=== PATIENT | female | born 1955 ===

== ENCOUNTER 2017-03-01 23:27 | Inpatient (IN) | payer BC ==
[~2017-03-01] VITALS: Ht 157.5 cm; Wt 77.9 kg
[~2017-03-01 23:27] MED LIST: AMIODARONE 150 MG INJ ONE; AMIODARONE 150MG/D5W BOLUS 100 ML ONE
--- NOTE | 2017-03-01 23:38 | ERD ---
ER Documentation Chief Complaint Chief Complaint [email or web address],JOHN KEANE The patient is a 61-year-old female, presenting to the ER due to cardiac arrest. I interviewed her son who was in the ER. She was not has not felt well for the last couple days. He said was about to take him to the ER for evaluation, he went to tile picker his car and when he came back the patient was on the floor. He immediately called 911, EMS came to her resident about 5 minutes after. He was in asystole when EMS arrived, she was treated with epinephrine 1 mg IV 3. The EMS did work on her for approximately 15 minutes. It took them about 10 minutes to transfer the patient to the ER for chest pain and vomiting. When she came to the ER she was in a systole, she was immediately transported to bed #2, intubated immediately with any difficulty. She was treated with epinephrine 1 mg IV 2 approximately 3 minutes apart, she then went to ventricular fibrillation, she was then fibrillated with 200J and had ROSC at 2322 hrs. According to the son, she has hypertension taking metoprolol. Past medical history: Hypertension, CAD ROS All systems reviewed and are negative except as per history of present illness. Medications Home Meds Reported Medications Enalapril Maleate* (Vasotec*) 20 Mg Tablet, 20 MG PO DAILY, TAB 03/02/17 Enalapril Maleate* (Vasotec*) 5 Mg Tablet, 5 MG PO BID, TAB 03/02/17 Metoprolol Tartrate* (Lopressor*) 25 Mg Tab, 25 MG PO BID, #60 TAB 03/02/17 Allergies Allergies: Coded Allergies: No Known Allergy (Unverified , 03/02/17) Physical Exam Vitals Vital Signs Date Time Temp Pulse Resp B/P Pulse Ox O2 Delivery O2 Flow Rate FiO2 03/02/17 03:18 67 20 100 100 03/02/17 01:55 72 20 99 100 03/01/17 23:40 Bag Valve Mask 03/01/17 23:35 0 0 0/0 03/01/17 23:30 95.7 123 17 266/150 57 Ambu Bag 03/01/17 23:30 72 20 100 100 Physical Exam Const: Severe acute distress. Head: Atraumatic. Eyes: Normal Conjunctiva.Pupils fixed and dilated ENT: Normal External Ears, Nose and Mouth. Neck: Full range of motion. No meningismus. Resp: Clear to auscultation Anteriorly and laterally with Ambu bag Cardio: asystole Abd: Soft, non distended, normal bowel sounds, non tender. Skin: No petechiae or rashes. Back: No midline or flank tenderness. Ext: No cyanosis, or edema. Neur: Unable to perform due to her condition Psych: Unable to perform due to her condition Result Diagram: 03/01/17 2340 03/01/17 2340 Results 24 hrs Laboratory Tests Test 03/01/17 23:40 03/02/17 02:40 03/02/17 03:00 White Blood Count 11.410^3/ul Red Blood Count 4.3710^6/ul Hemoglobin 12.6g/dl Hematocrit 40.8% Mean Corpuscular Volume 93.4fl Mean Corpuscular Hemoglobin 28.8pg Mean Corpuscular Hemoglobin Concent 30.9g/dl Red Cell Distribution Width 13.2% Platelet Count 52501^3/UL Mean Platelet Volume 10.6fl Neutrophils % 18.8% Lymphocytes % 68.2% Monocytes % 4.7% Eosinophils % 1.7% Basophils % 0.6% Nucleated Red Blood Cells % 0.2/100WBC Neutrophils # 2.110^3/ul Lymphocytes # 7.810^3/ul Monocytes # 0.510^3/ul Eosinophils # 0.210^3/ul Basophils # 0.110^3/ul Nucleated Red Blood Cells # 0.010^3/ul Prothrombin Time 14.7Sec Prothrombin Time Ratio 1.1 INR International Normalized Ratio 1.15 Activated Partial Thromboplast Time 53.8Sec Sodium Level 147mmol/L Potassium Level 4.8mmol/L Chloride Level 117mmol/L Carbon Dioxide Level 19mmol/L Anion Gap 16 Blood Urea Nitrogen 20mg/dl Creatinine 1.27mg/dl Glucose Level 206mg/dl Lactic Acid Level 12.5mmol/L 3.0mmol/L Calcium Level 7.7mg/dl Total Bilirubin 0.2mg/dl Direct Bilirubin 0.00mg/dl Indirect Bilirubin 0.2mg/dl Aspartate Amino Transf (AST/SGOT) 251IU/L Alanine Aminotransferase (ALT/SGPT) 175IU/L Alkaline Phosphatase 114IU/L Troponin I Pending Total Protein 6.1g/dl Albumin 3.1g/dl Globulin 3.00g/dl Albumin/Globulin Ratio 1.03 Salicylates Level < 1.0mg/dl Acetaminophen Level < 10.0ug/ml Ethyl Alcohol Level < 10.0mg/dl Urine Color YELLOW Urine Clarity SLIGHTLY CLOUDY Urine pH 7.0 Urine Specific [place] 1.006 Urine Ketones NEGATIVEmg/dL Urine Nitrite NEGATIVEmg/dL Urine Bilirubin NEGATIVEmg/dL Urine Urobilinogen NEGATIVEmg/dL Urine Leukocyte Esterase NEGATIVELeu/ul Urine Microscopic RBC 9/HPF Urine Microscopic WBC 2/HPF Urine Hemoglobin 2+mg/dL Urine Glucose 3+mg/dL Urine Total Protein 2+mg/dl Current Medications Medications (Trade) Dose Ordered Sig/Antonio Route PRN Reason Start Time Stop Time Status Last Admin Dose Admin Amiodarone HCl 100 ml @ 600 mls/hr ONCE ONCE IV 03/02/17 00:00 03/02/17 00:09 DC 03/02/17 00:11 Amiodarone HCl/ Dextrose (Cordarone Iv/ D5W) 500 ml @ 0 mls/hr Q0M IV 03/02/17 00:00 03/02/17 23:59 03/02/17 00:09 Mannitol 25 gm 25 gm ONCE ONCE IV* 03/02/17 01:30 03/02/17 01:31 Cancel Sodium Chloride 2,790 ml @ 2,790 mls/hr BOLUS X1 ONCE IV 03/02/17 02:00 03/02/17 02:59 DC 03/02/17 02:27 Vancomycin HCl 250 ml @ 125 mls/hr ONCE IVPB 03/02/17 02:00 03/02/17 03:59 DC 03/02/17 02:41 Piperacillin Sod/ Tazobactam Sod 100 ml @ 200 mls/hr ONCE ONCE IVPB 03/02/17 02:00 03/02/17 02:29 DC 03/02/17 02:41 Norepinephrine 250 ml @ 1.875 mls/ hr TITRATE IV 03/02/17 02:00 03/02/17 02:28 Mannitol 125 ml @ 125 mls/hr Q1H IV 03/02/17 01:45 03/02/17 02:44 DC 03/02/17 01:45 Sodium Chloride (NS) 1,000 ml @ 125 mls/hr Q8H IV 03/02/17 02:39 Acetaminophen (Tylenol Supp) 650 mg Q4H PRN ID PAIN LEVEL 1-3 OR FEVER 03/02/17 03:00 Pantoprazole 40 mg 40 mg DAILY@06 IV 03/02/17 06:00 Fentanyl (Sublimaze) 100 ml @ 2.5 mls/hr TITRATE IV 03/02/17 05:00 Vecuronium [place] (Norcuron) 6.6 mg ONCE ONCE IV 03/02/17 05:00 03/02/17 05:01 DC Vecuronium [place] 9 mg 9 mg ONCE ONCE IV 03/02/17 05:00 03/02/17 05:00 DC Vecuronium [place]/Dextrose (Norcuron/D5W) 100 ml @ 5.4 mls/hr TITRATE IV 03/02/17 05:00 Procedures/[place] [id number] Radiology Main Line: [phone] DIAGNOSTIC IMAGING REPORT Patient: SURAJ MAHMOOD : 1955 Age: 61 Sex: F MR #: [id number] DOS: 03/01/17 2338 Ordering MD: DIXON JIM MD Location: E/R Room/Bed: PROCEDURE: CT Cervical Spine without contrast. CLINICAL INDICATION: Trauma TECHNIQUE: Noncontrast CT of the cervical spine was performed with axial images. Coronal and sagittal images were also performed. The administered radiation dose was CTDI vol = 22 mGy, DLP = 385 mGy-cm. COMPARISON: There are no similar studies submitted for comparison. FINDINGS: Part of the C7 vertebral body is not included in the field of view. Vertebral body stature and alignment are maintained. No acute fracture or subluxation is identified. The paravertebral and paraspinous soft tissues are unremarkable. There is a 2 cm nodule within the left thyroid lobe. IMPRESSION: No acute fracture or subluxation. IVC 7 vertebral body is not included in the field of view. Left thyroid nodule. This can be further evaluated with ultrasound on a non emergent basis. RPTAT: HIKT .Tito Ángel, MD, Date Time Electronically viewed and signed by .Tito Neal MD, on 03/02/2017 00:49 .T/ CC: DIXON JIM MD [place] [id number] Radiology Main Line: [phone] DIAGNOSTIC IMAGING REPORT Patient: SURAJ MAHMOOD : 1955 Age: 61 Sex: F MR #: [id number] DOS: 03/01/17 2338 Ordering MD: DIXON JIM MD Location: E/R Room/Bed: PROCEDURE: CT Brain without contrast. CLINICAL INDICATION: Status post cardiac arrest. Sepsis.. TECHNIQUE: Serial axial computed tomographic images of the brain was performed on a CT scanner from the skull base through the vertex without contrast. Sagittal and coronal reconstruction images were produced. Exam CTDlvol = 44 mGy and DLP = 720 mGy-cm. One of the following 3 dose reduction techniques were used: Automated exposure control; adjustment of the mA and/or kV according to patient size; or use of iterative reconstruction technique. COMPARISON: None available FINDINGS: There is diffuse loss of the welch-white matter differentiation with effacement of the cerebral hemispheric sulci. Ventricles are relatively small. Basilar cisterns are partially effaced.. There is no midline shift. No acute intracranial hemorrhage or abnormal extra-axial fluid collection. No fracture identified. There are air-fluid levels in the bilateral maxillary sinuses, ethmoid air cells and sphenoid sinus. IMPRESSION: 1. Diffuse cerebral edema with loss of welch-white junction compatible with a diffuse anoxic event/stroke. Partially effaced basilar cisterns compatible with component of transtentorial herniation from the cerebra edema. 2. No acute intracranial hemorrhage. 3. Paranasal sinus air-fluid levels. Critical findings reported to Dr. Jim on 03/02/2017 12:41:11 AM. RPTAT: HMVK .Dixon Hammer MD, Date Time Electronically viewed and signed by .Dixon Hammer MD, on 03/02/2017 00:44 .K/ CC: DIXON JIM MD EKG: Read by emergency physician Rate/Rhythm: Sinus bradycardia 55 beats/min QRS, ST, T-waves: No ST elevation, no T inversion, First-degree AV block, LVH , lateral T abnormality, prolonged QT Impression: Abnormal EKG Portable chest x-ray per radiologist show ETT at the mid trachea, pulmonary vascular congestion, no pneumothorax MEDICAL MAKING DECISION: The patient is a 61-year-old female, presenting to the ER because of acute cardiac arrest, status post asystole and ventricular fibrillation, acute septic shock, probable acute anoxic encephalopathy, acute troponin elevation, acute hypernatremia. She was treated with amiodarone 150 mg IV bolus then 1 mg/min per protocol for acute ventricular fibrillation, she was treated with nasogastric tube, Huitron catheter, hypothermia protocol was started. She was treated with vancomycin IV , Zosyn IV and Levophed drip for acute septic shock. She was treated with aspirin suppository due to acute troponin elevation Consultation: I discussed the patient with the on-call neurosurgeon Dr. dai at 1:10 AM, who was made aware of the lab, the treatment, the patient condition. He only recommended mannitol and 25 mg q. 10 minutes 3 if blood pressure tolerates. I did transmit this information to the admitting physician Dr. Howell Consultation: I discussed the patient with the on-call bench molder Dr. Delvalle at 1:20 AM, who was made aware of the patient condition. He did not think the patient is candidate for emergent cardiac cath Admit MDM: Patient's infectious symptoms have not stabilized and the patient is at risk of rapid decompensation. The patient will be admitted for careful hydration, antibiotic therapy, and infectious source control. Severe Sepsis criteria: Infectious source: Unknown End organ damage indicated by: Lactate > 2.0 mmol/L Hypotension (SBP < 90 or >40 mmHG drop or MAP < 65) Acute Resp Failure (sat < 92% w/o oxygen) Sepsis Management: Time of recognition of severe sepsis/septic shock:2:10 am Within 3 hours of recognition: Blood cultures x 2 before broad-spectrum antibiotics: Yes 30 ml/kg NS bolus completed Initial lactate 12.5 Repeat lactate pending Septic Shock Assessment: Any lactic acid > 4.0 yes Persistent hypotension (SBP < 90 or 40 mmHg drop, MAP < 65) despite 30 mL/kg IV fluid bolusyes Volume Re-assessment for Septic Shock (post 30 ml/kg bolus): Temp95.7, BP103/71, HR67, RR20, Pox100% on Vent Heart regular rate & rhythm Lungs no crackles Skin Warm & dry Cap Refill less than 2 seconds Peripheral pulses radially present Persistent Hypotension Treatment: Comfort care no Central line rt femoral vein Vasopressor started Norepinehrine I considered further perfusion assessment with CVP measurement, SCVO2, bedside ultrasound volume assessment, passive leg raise, trial of further fluid bolus. And proceeded with pressor Accepting Care Team Current data and ongoing care discussed. Time: 1:30 am Admitting Physician: Dante Sales Agent Financial Report Service(s): Outstanding Data: Labs Critical Care: Critical care time 75minutes Emergent fluid management while maintaining close respiratory support. Provision of immediate and broad-spectrum antibiotic therapy. Simultaneous assessment for possible sources in order to direct targeted therapy. Consideration for invasive and chemical support to prevent cardiopulmonary collapse. Central Line Placement by me: Patient consented, sterilely draped, full prep, gown, glove, mask, time out performed. Anesthesia: 1% lidocaine locally Location: Rt femoral vein Device: Multiple lumen Technique: Seldinger technique. Secured with suture. Results: Venous return from all ports with easy saline flush. No complications. Entire Guide wire retrieved and disposed of. [ED Ultrasound: Central line placed by me using concurrent ultrasound guidance. Real time image archived in the medical record confirms vascular anatomy. Endotracheal Intubation by me: Pre assessment performed. See preceding note for details. Pre-oxygenation performed with 100% oxygen RSI: Performed w/o complication or hypoxic events. Medications as ordered. Blade: Fiatt scope ET Tube: 7.5 cm Depth: 21 cm at the lip Intubation confirmed by colorimetric CO2, equal breath sounds, quiet over the stomach. Departure Diagnosis: Primary Impression: Cardiac arrest Additional Impressions: Septic shock Anoxic encephalopathy Elevated troponin Hypernatremia Abnormal LFTs Condition: Critical Comments I discussed the findings with the patient. I discussed the patient with the on- call hospitalist Dr. Howell at 1:30 am who was made aware of the lab, the treatment, the patient condition. The patient is admitted to ICU DIXON JIM MD Mar 01, 2017 23:38
[2017-03-01 23:59] LABS: ABNORMAL IP MESSAGE 1; BASOPHIL # 0.1 10^3/ul (0.0-0.1); BASOPHILS % 0.6 % (0.0-2.0); EOSINOPHILS # 0.2 10^3/ul (0.0-0.5); EOSINOPHILS % 1.7 % (0.0-7.0); HEMATOCRIT 40.8 % (37.0-47.0); HEMOGLOBIN 12.6 g/dl (12.0-16.0); LYMPHOCYTES # 7.8 10^3/ul (0.8-2.9); LYMPHOCYTES % 68.2 % (15.0-51.0); MEAN CORPUSCULAR HEMOGLOBIN 28.8 pg (29.0-33.0); MEAN CORPUSCULAR HGB CONC 30.9 g/dl (32.0-37.0); MEAN CORPUSCULAR VOLUME 93.4 fl (82.0-101.0); MEAN PLATELET VOLUME 10.6 fl (7.4-10.4); MONOCYTE # 0.5 10^3/ul (0.3-0.9); MONOCYTES % 4.7 % (0.0-11.0); NEUTROPHIL # 2.1 10^3/ul (1.6-7.5); NEUTROPHILS % 18.8 % (39.0-77.0); NUCLEATED RED BLOOD CELLS% 0.2 /100WBC (0.0-0.0); PLATELET COUNT 157 10^3/UL (140-415); RED BLOOD COUNT 4.37 10^6/ul (4.20-5.40); RED CELL DISTRIBUTION WIDTH 13.2 % (11.5-14.5); WHITE BLOOD COUNT 11.4 10^3/ul (4.8-10.8)
[2017-03-02] VITALS (72 sets, daily range): BP systolic 67–171; BP diastolic 43–103; PULSE 40–63; RESP 18–26; TEMP 91.1; Ht 157.5 cm; Wt 77.9 kg
[2017-03-02] LABS: POSITIVE DIFF @See below
[2017-03-02] MEDS ORDERED: AMIODARONE 150MG/D5W BOLUS 100 ML IV ONE
[2017-03-02] MEDS ORDERED: AMIODARONE 900 MG in DEXTROSE 5% 482 ML IV SCH ×2
[2017-03-02 00:16] LABS: INR 1.15; PROTIME 14.7 Sec (12.2-14.2); PT RATIO 1.1
[2017-03-02 00:17] LABS: PARTIAL THROMBOPLASTIN TIME 53.8 Sec (25.0-35.0)
--- NOTE | 2017-03-02 00:44 | RADRPT ---
PROCEDURE: CT Brain without contrast. CLINICAL INDICATION: Status post cardiac arrest. Sepsis.. TECHNIQUE: Serial axial computed tomographic images of the brain was performed on a CT scanner fro m the skull base through the vertex without contrast. Sagittal and coronal reconstruction images wer e produced. Exam CTDlvol = 44 mGy and DLP = 720 mGy-cm. One of the following 3 dose reduction tech niques were used: Automated exposure control; adjustment of the mA and/or kV according to patient si ze; or use of iterative reconstruction technique. COMPARISON: None available FINDINGS: There is diffuse loss of the welch-white matter differentiation with effacement of the cerebral hemis pheric sulci. Ventricles are relatively small. Basilar cisterns are partially effaced.. There is no midline shift. No acute intracranial hemorrhage or abnormal extra-axial fluid collection. No fra cture identified. There are air-fluid levels in the bilateral maxillary sinuses, ethmoid air cells and sphenoid sinus. IMPRESSION: 1. Diffuse cerebral edema with loss of welch-white junction compatible with a diffuse anoxic event/s troke. Partially effaced basilar cisterns compatible with component of transtentorial herniation fro m the cerebra edema. 2. No acute intracranial hemorrhage. 3. Paranasal sinus air-fluid levels. Critical findings reported to Dr. Major on 03/02/2017 12:41:11 AM. RPTAT: HMVK .Dixon Hammer MD, MD Date Time Electronically viewed and signed by .Dixon Hammer MD, MD on 03/02/2017 00:44 .K/
--- NOTE | 2017-03-02 00:49 | RADRPT ---
PROCEDURE: CT Cervical Spine without contrast. CLINICAL INDICATION: Trauma TECHNIQUE: Noncontrast CT of the cervical spine was performed with axial images. Coronal and sagitta l images were also performed. The administered radiation dose was CTDI vol = 22 mGy, DLP = 385 mGy- cm. COMPARISON: There are no similar studies submitted for comparison. FINDINGS: Part of the C7 vertebral body is not included in the field of view. Vertebral body stature and align ment are maintained. No acute fracture or subluxation is identified. The paravertebral and paraspin ous soft tissues are unremarkable. There is a 2 cm nodule within the left thyroid lobe. IMPRESSION: No acute fracture or subluxation. IVC 7 vertebral body is not included in the field of view. Left thyroid nodule. This can be further evaluated with ultrasound on a non emergent basis. RPTAT: HIKT .Tito Neal MD, MD Date Time Electronically viewed and signed by .Tito Neal MD, on 03/02/2017 00:49 .T/
[2017-03-02] MEDS ORDERED: MANNITOL 25% 50 ML INJ IV* ONE (01:30)
[2017-03-02] MEDS ORDERED: MANNITOL 20% 500 ML IV SCH (01:45)
[2017-03-02] MEDS ORDERED: SOD CHLORIDE 0.9% IV ONE (02:00)
[2017-03-02] MEDS ORDERED: VANCOMYCIN 1 GM (PMX) 250 ML IVPB SCH (02:00)
[2017-03-02] MEDS ORDERED: PIPER-TAZO 3.375 GM IV (PMX) 100 ML IVPB ONE (02:00)
[2017-03-02] MEDS ORDERED: NORepinephrine 8MG/250 ML (PMX 250 ML IV SCH ×2 (02:00→09:30)
[2017-03-02] MEDS: SOD CHLORIDE 0.9% 1,000 ML IV SCH ×2 (02:39→10:12)
[2017-03-02] MEDS ORDERED: ACETAMINOPHEN 650 MG SUPP PR PRN ×2 (03:00→09:30)
[2017-03-02] MEDS ORDERED: METO-448 PO (03:04)
[2017-03-02] MEDS ORDERED: ENAL5TAB81 PO (03:04)
[2017-03-02] MEDS ORDERED: ENAL20TA73 PO (03:04)
[2017-03-02 03:33] LABS: ADD UMIC YES; UR ASCORBIC ACID NEGATIVE (NEGATIVE); UR BILIRUBIN (Dip) NEGATIVE (NEGATIVE); UR BLOOD (Dip) 2+ mg/dL (NEGATIVE); UR CLARITY SLIGHTLY CLOUDY (CLEAR); UR COLOR YELLOW (YELLOW); UR GLUCOSE (Dip) 3+ mg/dL (NEGATIVE); UR KETONES (Dip) NEGATIVE (NEGATIVE); UR LEUKOCYTE ESTERASE (Dip) NEGATIVE Leu/ul (NEGATIVE); UR NITRITE (Dip) NEGATIVE (NEGATIVE); UR RBC 9 /HPF (0-5); UR SPECIFIC GRAVITY (Dip) 1.006 (1.003-1.030); UR TOTAL PROTEIN (Dip) 2+ mg/dl (NEGATIVE); UR UROBILINOGEN (Dip) NEGATIVE (NEGATIVE)
[2017-03-02] MEDS ORDERED: VECURONIUM 10 MG VIAL IV ONE ×2 (05:00)
[2017-03-02] MEDS ORDERED: VECURONIUM 100 MG in D5W 100 ML IV SCH (05:00)
[2017-03-02] MEDS ORDERED: FENTAnyl (DRIP) 1000 mcg/100mL 100 ML IV SCH ×2 (05:00→10:30)
[2017-03-02 05:07] LABS: ACETAMINOPHEN < 10.0 ug/ml (10.0-30.0)
[2017-03-02 05:08] LABS: ETHANOL < 10.0 mg/dl; SALICYLATE < 1.0 mg/dl (5.0-30.0)
[2017-03-02 05:12] LABS: ALANINE AMINOTRANSFERASE 175 IU/L (13-69); ALBUMIN 3.1 g/dl (3.3-4.9); ALBUMIN/GLOBULIN RATIO 1.03; ALKALINE PHOSPHATASE 114 IU/L (42-121); ANION GAP 16 (8-16); ASPARTATE AMINO TRANSFERASE 251 IU/L (15-46); BILIRUBIN,INDIRECT 0.2 mg/dl (0-1.1); BILIRUBIN,TOTAL 0.2 mg/dl (0.2-1.3); BLOOD UREA NITROGEN 20 mg/dl (7-20); CALCIUM 7.7 mg/dl (8.4-10.2); CARBON DIOXIDE 19 mmol/L (21-31); CHLORIDE 117 mmol/L (97-110); CREATININE 1.27 mg/dl (0.44-1.00); GLUCOSE 206 mg/dl (70-220); POTASSIUM 4.8 mmol/L (3.5-5.1); SODIUM 147 mmol/L (135-144); TOTAL PROTEIN 6.1 g/dl (6.1-8.1)
[2017-03-02] MEDS ORDERED: ASPIRIN 300 MG SUPP PR ONE (05:30)
[2017-03-02 05:56] LABS: ABNORMAL IP MESSAGE 1; HEMATOCRIT 36.2 % (37.0-47.0); MEAN CORPUSCULAR HEMOGLOBIN 28.7 pg (29.0-33.0); MEAN CORPUSCULAR HGB CONC 33.1 g/dl (32.0-37.0); MEAN CORPUSCULAR VOLUME 86.6 fl (82.0-101.0); MEAN PLATELET VOLUME 10.1 fl (7.4-10.4); PLATELET COUNT 145 10^3/UL (140-415); POSITIVE DIFF @See below; RED BLOOD COUNT 4.18 10^6/ul (4.20-5.40); RED CELL DISTRIBUTION WIDTH 13.6 % (11.5-14.5); WHITE BLOOD COUNT 4.9 10^3/ul (4.8-10.8)
[2017-03-02] MEDS ORDERED: PANTOPRAZOLE 40 MG INJ IV SCH (06:00)
[2017-03-02 06:22] LABS: ANISOCYTOSIS 1+ (0-0); BASOPHILS % (M) 1 % (0-2); EOSINOPHILS % (M) 1 % (0-7); METAMYELOCYTES %M 3 % (0-0); MICROCYTOSIS 1+ (0-0); MONOCYTES % (M) 1 % (0-11); MYELOCYTES % (M) 1 % (0-0); PLATELET ESTIMATE DECREASED
[2017-03-02 06:26] LABS: ALBUMIN 3.3 g/dl (3.3-4.9); BILIRUBIN,INDIRECT 0.3 mg/dl (0-1.1); BILIRUBIN,TOTAL 0.3 mg/dl (0.2-1.3); CALCIUM 8.2 mg/dl (8.4-10.2); CREATININE 1.28 mg/dl (0.44-1.00); POTASSIUM 3.5 mmol/L (3.5-5.1); TOTAL PROTEIN 6.6 g/dl (6.1-8.1)
[2017-03-02 06:37] LABS: BARBITURATES NEGATIVE (NEGATIVE); BENZODIAZEPINES NEGATIVE (NEGATIVE); CANNABINOIDS NEGATIVE (NEGATIVE); COCAINE NEGATIVE (NEGATIVE); OPIATES NEGATIVE (NEGATIVE)
[2017-03-02] MEDS ORDERED: EPINEPHrine 0.1 MG/ML SYG ONE (07:00)
[2017-03-02] MEDS ORDERED: AMIODARONE 900 MG INJ ONE (07:00)
[2017-03-02] MEDS ORDERED: DEXTROSE 5% WATER 500 ML BAG ONE (07:00)
--- NOTE | 2017-03-02 07:07 | HP ---
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 She went through multiple cycles of ACLS with return of spontaneous circulation. At the current time she is intubated and on pressor support. We will continue supportive care. As per cardiology patient is not a Supervisor Backfilling candidate. Will check an echocardiogram. As per neurosurgery her CT brain findings are not amenable to surgical intervention at this time. Neurosurgery recommendations consist of mannitol 25 mg 3 every 15 minutes if blood pressure permits. Continue fluid resuscitation. Serial lactates. She initially received antibiotics in the ED however I do not see any clinical signs of infection at this time will hold off on any further antibiotics. Will trend lactate levels initial one was 12. Patient was initiated on hypothermic protocol in the ED. This is a very unfortunate case and based on the CAT scan showing signs of what appears to be diffuse anoxic injury and with the patient' s pupils being fixed and dilated at this time her prognosis does appear very poor. Son was at the bedside and he was explained his mother's clinical condition and that she is in a very critical status and has a very poor prognosis. At the current time we will continue current management. Will consult neurology. We will also consult palliative care regarding the goals of care discussion with the family. Further treatment strategy will be implemented as per the clinical course Greater than 70 minutes of critical care time was spent on the care and management of this patient. Problems: HPI/ROS Admit Date/Time Admit Date/Time Hx of Present Illness Chief complaint: Cardiac arrest This is a 61-year-old female, presenting to the ER due to cardiac arrest. History was obtained from the ED physician as well as patient's son in the ER as the patient herself is currently intubated status post cardiac arrest. As per the son the patient was not feeling well the last few days. He stated that every time she took her blood pressure medication she stated that she felt unwell. She was taking metoprolol 25 mg however she recently got an increased dose of. As a mother stated that she did not feel well the son went to go get his car to take her to the ER for evaluation, after he got his car and went back to pick her up he noticed her fall on the ground. Patient states that he immediately called 911, he does state he started CPR, EMS arrived approximately 5 minutes after. According to the EMS records patient was in asystole when they arrived, she was treated with epinephrine 1 mg IV 3. The EMS did work on her for approximately 15 minutes. It took them about 10 minutes to transfer the patient to the ER for chest pain and vomiting. When the patient arrived in the ER she was in a systole, she was immediately intubated. She was treated with epinephrine 1 mg IV 2 approximately 3 minutes apart, she then went to ventricular fibrillation, she was then defibrillated with 200J and had ROSC at 2322 hrs. Of note, the patient did show me a photograph on his phone of the patient's metoprolol at home. She recently had what appeared to be an official bottle of metoprolol 25 mg. However there also was a picture of the latest metoprolol that she had which was in pill bottle that did not appear to be from an official pharmacy. The label appear to be handwritten displaying we will possibly look like metoprolol and handwriting. It did not look like it was from many official pharmacy. The son was asked where she gets her medication and he was not sure. He states that he will bring the bottle in. allergies: NKDA Medications: Metoprolol, enalapril ROS Subjective hx not possible: pt non-verbal, pt critical PMH/Family/Social Past Medical History Hypertension, CAD Past Surgical History Past Surgical Hx: no surgical history Family History Significant Family History: no pertinent family hx Social History Alcohol Use: none Smoking Status: Never smoker Drug Use: none Exam/Review of Systems Vital Signs Vitals Vital Signs Date Time Temp Pulse Resp B/P Pulse Ox O2 Delivery O2 Flow Rate FiO2 03/02/17 05:39 49 20 100 100 03/01/17 23:40 Bag Valve Mask 03/01/17 23:35 0/0 03/01/17 23:30 95.7 Exam Exam General: Patient is intubated, obtunded HEENT: Atraumatic, normocephalic. Pupils fixed and dilated, intubated Neck: Supple Lungs: Clear to auscultation bilaterally no crackles rales or wheezing Heart: Normal S1-S2, Regular rhythm and rate. No murmur, S3, or S4 Abdomen: Soft , nontender, nondistended , bowel sounds are present. No guarding no rebound tenderness , No masses or organomegaly. No costovertebral temporal angle mass Extremities: Normal to inspection, no edema no cyanosis Neurologic: Unable to assess secondary to patient's clinical condition/obtunded Skin: Right femoral central line Additional Comments PROCEDURE: CT Brain without contrast. CLINICAL INDICATION: Status post cardiac arrest. Sepsis.. TECHNIQUE: Serial axial computed tomographic images of the brain was performed on a CT scanner from the skull base through the vertex without contrast. Sagittal and coronal reconstruction images were produced. Exam CTDlvol = 44 mGy and DLP = 720 mGy-cm. One of the following 3 dose reduction techniques were used: Automated exposure control; adjustment of the mA and/or kV according to patient size; or use of iterative reconstruction technique. COMPARISON: None available FINDINGS: There is diffuse loss of the welch-white matter differentiation with effacement of the cerebral hemispheric sulci. Ventricles are relatively small. Basilar cisterns are partially effaced.. There is no midline shift. No acute intracranial hemorrhage or abnormal extra-axial fluid collection. No fracture identified. There are air-fluid levels in the bilateral maxillary sinuses, ethmoid air cells and sphenoid sinus. IMPRESSION: 1. Diffuse cerebral edema with loss of welch-white junction compatible with a diffuse anoxic event/stroke. Partially effaced basilar cisterns compatible with component of transtentorial herniation from the cerebra edema. 2. No acute intracranial hemorrhage. 3. Paranasal sinus air-fluid levels. Critical findings reported to Dr. Jim on 03/02/2017 12:41:11 AM. RPTAT: HMVK .Michael Hammer MD, MD Date Time Electronically viewed and signed by .Michael Hammer MD, MD on 03/02/2017 00:44 .K/ CC: MICHAEL JIM MD PROCEDURE: CT Cervical Spine without contrast. CLINICAL INDICATION: Trauma TECHNIQUE: Noncontrast CT of the cervical spine was performed with axial images. Coronal and sagittal images were also performed. The administered radiation dose was CTDI vol = 22 mGy, DLP = 385 mGy-cm. COMPARISON: There are no similar studies submitted for comparison. FINDINGS: Part of the C7 vertebral body is not included in the field of view. Vertebral body stature and alignment are maintained. No acute fracture or subluxation is identified. The paravertebral and paraspinous soft tissues are unremarkable. There is a 2 cm nodule within the left thyroid lobe. IMPRESSION: No acute fracture or subluxation. IVC 7 vertebral body is not included in the field of view. Left thyroid nodule. This can be further evaluated with ultrasound on a non emergent basis. RPTAT: HIKT .Tito Neal MD, MD Date Time Electronically viewed and signed by .Tito Neal MD, MD on 03/02/2017 00:49 .T/ CC: MICHAEL JIM MD EKG: Rate/Rhythm: Sinus bradycardia 55 beats/min QRS, ST, T-waves: No ST elevation, no T inversion, First-degree AV block, LVH , lateral T abnormality, prolonged QT Impression: Abnormal EKG As per ED physician documentation Labs Result Diagram: 03/02/17 0535 03/01/17 2170 Medications Medications Current Medications Amiodarone HCl 900 mg/Dextrose 500 ml @ 0 mls/hr Q0M IV Last administered on 00:09; Admin Dose 1 MLS/HR; Start 03/02/17 at 00:00; Stop 03/02/17 at 23:59 Norepinephrine 250 ml @ 1.875 mls/ hr TITRATE IV Last administered on 02:28; Admin Dose 3.75 MLS/HR; Start 03/02/17 at 02:00 Sodium Chloride (NS) 1,000 ml @ 125 mls/hr Q8H IV ; Start 03/02/17 at 02:39 Acetaminophen (Tylenol Supp) 650 mg Q4H PRN [place] PAIN LEVEL 1-3 OR FEVER; Start 03/02/17 at 03:00 Pantoprazole 40 mg 40 mg DAILY@06 IV ; Start 03/02/17 at 06:00 Fentanyl 100 ml @ 2.5 mls/hr TITRATE IV ; Start 03/02/17 at 05:00 Vecuronium [place]/Dextrose (Norcuron/D5W) 100 ml @ 5.4 mls/hr TITRATE IV ; Start 03/02/17 at 05:00 BARBARA SOMMERS Mar 02, 2017 06:50
[2017-03-02] MEDS ORDERED: MIDAZOLAM (DRIP) 50 mg/50 mL 50 ML IV SCH (07:30)
[2017-03-02 07:35] LABS: AADO2 Arterial 556.7 mmHg (7.0-24.0); Allen Test ACCEPTAB; Arterial Base Excess -10.4 mmol/L (-3.0-3); Arterial COHb 0.3 % (0.0-3.0); Arterial Fraction of Oxyhgb 96.9 % (93.0-99.0); Arterial HCO3 16.8 mmol/L (22.0-26.0); Arterial MetHb 0.3 % (0.0-1.5); Arterial Total Hemglobin 12.5 g/dl (12.0-18.0); Blood Gas Low PEEP Setting 0 cmH2O; MODE VENT - AC
--- NOTE | 2017-03-02 08:31 | RADRPT ---
PROCEDURE: CHEST - 1 VIEW CLINICAL INDICATION: 61-year-old female with respiratory distress and intubation. TECHNIQUE: A single frontal AP portable view of the chest was performed. The images were reviewed on a PACS workstation. COMPARISON: None. FINDINGS: There is an endotracheal tube identified with the tip in the mid trachea approximately 3.1 cm above the erdd. There is a nasogastric tube identified extending below the diaphragm in the left upper q uadrant stomach region. The cardiomediastinal silhouette is moderately enlarged. There is mild-to-mo derate pulmonary vascular congestion. A superimposed infiltrate cannot be excluded. There is mild fl uid within the right minor fissure. There is no evidence for pneumothorax. The osseous structures ar e intact. IMPRESSION: 1. Endotracheal tube with the tip in the mid trachea. 2. Nasogastric tube. 3. Cardiomegaly. 4. Pulmonary vascular congestion. A superimposed infiltrate cannot be excluded. Clinical correlatio n is necessary. .Dejuan Sawyer MD, MD Date Time Electronically viewed and signed by .Dejuan Sawyer MD, on 03/02/2017 00:12 .M/
[2017-03-02] MEDS ORDERED: SOD CHLORIDE 0.9% 1,000 ML IV SCH ×2 (09:07→22:00)
[2017-03-02] MEDS ORDERED: MEPERIDINE 25 MG INJ IV PRN ×2 (09:30)
[2017-03-02] MEDS ORDERED: DEXTROSE 50% 50 ML SYRINGE IV PRN ×2 (09:30)
[2017-03-02] MEDS ORDERED: ACETAMINOPHEN 650MG/20.3ML CUP PO PRN (09:30)
[2017-03-02 09:41] LABS: AADO2 Arterial 617.1 mmHg (7.0-24.0); Allen Test ACCEPTAB; Arterial Base Excess -9.4 mmol/L (-3.0-3); Arterial COHb 0.3 % (0.0-3.0); Arterial Fraction of Oxyhgb 96.4 % (93.0-99.0); Arterial HCO3 15.8 mmol/L (22.0-26.0); Arterial MetHb 0.2 % (0.0-1.5); Arterial Total Hemglobin 13.3 g/dl (12.0-18.0); Blood Gas Low PEEP Setting 0 cmH2O; MODE VENT - AC
[2017-03-02] MEDS: ACCU-CHEK XX SCH ×15 (10:11→23:30)
--- NOTE | 2017-03-02 10:27 | RADRPT ---
PROCEDURE: XR Chest. CLINICAL INDICATION: Shortness of breath. TECHNIQUE: Single frontal view. COMPARISON: 03/01/2017. FINDINGS: The endotracheal tube and nasogastric tube are in satisfactory position. There is bilateral pulmonar y airspace and interstitial disease consistent with pulmonary edema, unchanged. The heart is enlarged. There is no pleural effusion. There is no pneumothorax. IMPRESSION: 1. No change from 03/01/2017. RPTAT: QQ .Familia Mendez MD, MD Date Time Electronically viewed and signed by .Familia Mendez MD, MD on 03/02/2017 10:26 .R/
[2017-03-02] MEDS ORDERED: INSULIN HUMAN REGULAR 100 UNIT in SOD CHLORIDE 0.9% 99 ML IV SCH (10:30)
[2017-03-02] MEDS: PROPOFOL 100 ML IV SCH (11:13)
[2017-03-02] MEDS: VECURONIUM 100 MG in DEXTROSE 5% 100 ML IV SCH ×2 (11:30→17:45)
[2017-03-02 11:49] LABS: ABNORMAL IP MESSAGE 1; HEMATOCRIT 36.5 % (37.0-47.0); HEMOGLOBIN 11.6 g/dl (12.0-16.0); MEAN CORPUSCULAR HEMOGLOBIN 27.5 pg (29.0-33.0); MEAN CORPUSCULAR HGB CONC 31.8 g/dl (32.0-37.0); MEAN CORPUSCULAR VOLUME 86.5 fl (82.0-101.0); MEAN PLATELET VOLUME 10.2 fl (7.4-10.4); PLATELET COUNT 133 10^3/UL (140-415); RED BLOOD COUNT 4.22 10^6/ul (4.20-5.40); RED CELL DISTRIBUTION WIDTH 13.9 % (11.5-14.5); WHITE BLOOD COUNT 3.5 10^3/ul (4.8-10.8)
--- NOTE | 2017-03-02 11:50 | CONS ---
Date/Time of Note Date/Time of Note DATE: 03/02/17 TIME: 11:43 Assessment/Plan Assessment/Plan Additional Assessment/Plan Anoxic encephalopathy, etiology currently unknown On hypothermia protocol Incomplete database History of hypertension I have asked patient's critical care nurse to speak to family members to bring in her medications. Otherwise I will just introduce myself to family and follow clinical course. Consultation Date/Type/Reason Admit Date/Time Type of Consultation: Palliative care Hx of Present Illness I have reviewed patient's medical records and spoke with her critical care nurse. Essentially patient had a cardiac arrest for unknown reasons, EMS began CPR approximately 5 minutes after patient was down. In the emergency room she had cardiac arrest 2 and had ROSC. Review of CT scan in brief showed evidence of anoxic injury and herniation. These are the major circumstances that occurred last evening. Additionally patient was not feeling well according to the son when she were taking her antihypertensive meds and complaining of lightheadedness. Also he left the house to get his car came back he found her down but therefore is unknown how long she was not breathing. She was begun on hypothermia protocol transferred to the intensive care unit. I appreciate her health care team calling me early in this lady who has very poor prognosis. I will only introduce myself to family members as a member of the health care team involved primarily with communication at this time. Past Surgical History Past Surgical Hx: no surgical history Social History Alcohol Use: none Smoking Status: Never smoker Drug Use: none Exam/Review of Systems Vital Signs Vitals Vital Signs Date Time Temp Pulse Resp B/P Pulse Ox O2 Delivery O2 Flow Rate FiO2 03/02/17 09:45 44 20 133/86 100 03/02/17 09:00 91.3 Mechanical Ventilator 03/02/17 08:35 100 Intake and Output 03/01/17 03/01/17 03/02/17 15:00 23:00 07:00 Output Total 1500 ml Balance -1500 ml Exam Constitutional: other (Intubated) Head: No atraumatic, No hematomas, No lacerations, No normocephalic, No other Respiratory: other (Bilateral inspiratory and expiratory rhonchi both lung marie) Cardiovascular: No S3, No S4, No bruits, No diastolic murmur, No edema, No gallop, No irregular rhythm, No jugular venous distention (JVD), No murmurs/ extra sounds, No nl pulses, No other, No regular rate and rhythm, No rub, No systolic murmur Neurological: other (No rate response any verbal or tactile stimulation, not overbreathing the ventilator, without pupillary light reflex corneals doll's eyes) Results Result Diagram: 03/02/17 0535 03/02/17 0535 Results 24 hrs Laboratory Tests Test 03/01/17 23:40 03/02/17 00:10 03/02/17 02:40 03/02/17 03:00 White Blood Count 11.4 H Red Blood Count 4.37 Hemoglobin 12.6 Hematocrit 40.8 Mean Corpuscular Volume 93.4 Mean Corpuscular Hemoglobin 28.8 L Mean Corpuscular Hemoglobin Concent 30.9 L Red Cell Distribution Width 13.2 Platelet Count 157 Mean Platelet Volume 10.6 H Neutrophils % 18.8 L Lymphocytes % 68.2 H Monocytes % 4.7 Eosinophils % 1.7 Basophils % 0.6 Nucleated Red Blood Cells % 0.2 H Neutrophils # 2.1 Lymphocytes # 7.8 H Monocytes # 0.5 Eosinophils # 0.2 Basophils # 0.1 Nucleated Red Blood Cells # 0.0 Prothrombin Time 14.7 H Prothrombin Time Ratio 1.1 INR International Normalized Ratio 1.15 Activated Partial Thromboplast Time 53.8 H Sodium Level 147 H Potassium Level 4.8 Chloride Level 117 H Carbon Dioxide Level 19 L Anion Gap 16 Blood Urea Nitrogen 20 Creatinine 1.27 H Glucose Level 206 Lactic Acid Level 12.5 *H 3.0 *H Calcium Level 7.7 L Total Bilirubin 0.2 Direct Bilirubin 0.00 Indirect Bilirubin 0.2 Aspartate Amino Transf (AST/SGOT) 251 H Alanine Aminotransferase (ALT/SGPT) 175 H Alkaline Phosphatase 114 Troponin I Total Protein 6.1 Albumin 3.1 L Globulin 3.00 Albumin/Globulin Ratio 1.03 Salicylates Level < 1.0 L Acetaminophen Level < 10.0 L Ethyl Alcohol Level < 10.0 Blood Gas Specimen Source Blood arterial Arterial Blood Date Drawn 03/02/2017 1:45:58 AM Arterial Blood pH (Temp corrected) 7.217 *L Arterial Blood pCO2 (Temp correct) 42.4 Arterial Blood pO2 (Temp corrected) 113.9 H Arterial Blood HCO3 16.8 L Arterial Blood Base Excess -10.4 L Arterial Blood Oxygen Saturation 97.5 Burak Test ACCEPTAB Arterial Blood Gas Puncture Site Right Radial Arterial Blood Carboxyhemoglobin 0.3 Arterial Blood Methemoglobin 0.3 Blood Gas A-a O2 Differential 556.7 H Oxyhemoglobin Percent 96.9 Total Hemoglobin 12.5 Blood Gas Temperature 37.0 Blood Gas Respiration Rate 20.0 Blood Gas Actual Respiration Rate 20 Blood Gas Modality VENT - AC FiO2 100.0 Blood Gas Tidal Volume 500.0 Blood Gas Low PEEP Setting 0 Blood Gas Inspiratory Pressure 35.0 Blood Gas Critical Value Read Back Arline JIM Blood Gas Notified Whom BR Blood Gas Notified Time 03/02/2017 1:53:32 AM Urine Color YELLOW Urine Clarity SLIGHTLY CLOUDY A Urine pH 7.0 Urine Specific [place] 1.006 Urine Ketones NEGATIVE Urine Nitrite NEGATIVE Urine Bilirubin NEGATIVE Urine Urobilinogen NEGATIVE Urine Leukocyte Esterase NEGATIVE Urine Microscopic RBC 9 H Urine Microscopic WBC 2 Urine Hemoglobin 2+ H Urine Glucose 3+ H Urine Total Protein 2+ H Urine Opiates Screen NEGATIVE Urine Barbiturates NEGATIVE Urine Amphetamines Screen NEGATIVE Urine Benzodiazepines Screen NEGATIVE Urine Cocaine Screen NEGATIVE Urine Cannabinoids NEGATIVE Test 03/02/17 05:35 03/02/17 07:47 03/02/17 09:07 03/02/17 09:11 White Blood Count 4.9 # Red Blood Count 4.18 L Hemoglobin 12.0 Hematocrit 36.2 L Mean Corpuscular Volume 86.6 Mean Corpuscular Hemoglobin 28.7 L Mean Corpuscular Hemoglobin Concent 33.1 Red Cell Distribution Width 13.6 Platelet Count 145 Mean Platelet Volume 10.1 Neutrophils % Segmented Neutrophils % (Manual) 31 L Band Neutrophils % (Manual) 45 H Lymphocytes % Lymphocytes % (Manual) 17 Monocytes % Monocytes % (Manual) 1 Eosinophils % Eosinophils % (Manual) 1 Basophils % Basophils % (Manual) 1 Metamyelocytes % (manual) 3 H Myelocytes % (Manual) 1 H Nucleated Red Blood Cells % 0.0 Neutrophils # Neutrophils # (Manual) 1.6 L Band Neutrophils # 2.2 H Absolute Lymphocytes (Manual) 0.8 Lymphocytes # Monocytes # Absolute Monocytes (Manual) 0.0 L Eosinophils # Basophils # Basophils # (Manual) 0.0 Metamyelocytes # 0.1 H Myelocytes # 0.0 Nucleated Red Blood Cells # Platelet Estimate DECREASED Anisocytosis 1+ Microcytosis 1+ Sodium Level 146 H Potassium Level 3.5 Chloride Level 117 H Carbon Dioxide Level 19 L Anion Gap 14 Blood Urea Nitrogen 22 H Creatinine 1.28 H Glucose Level 134 # Lactic Acid Level 2.8 *H Calcium Level 8.2 L Total Bilirubin 0.3 Direct Bilirubin 0.00 Indirect Bilirubin 0.3 Aspartate Amino Transf (AST/SGOT) 274 H Alanine Aminotransferase (ALT/SGPT) 186 H Alkaline Phosphatase 118 Total Protein 6.6 Albumin 3.3 Globulin 3.30 H Albumin/Globulin Ratio 1.00 Bedside Glucose 95 149 Blood Gas Specimen Source Blood arterial Arterial Blood Date Drawn 03/02/2017 9:08:24 AM Arterial Blood pH (Temp corrected) 7.364 Arterial Blood pCO2 (Temp correct) 27.1 L Arterial Blood pO2 (Temp corrected) 78.5 L Arterial Blood HCO3 15.8 L Arterial Blood Base Excess -9.4 L Arterial Blood Oxygen Saturation 96.9 Burak Test ACCEPTAB Arterial Blood Gas Puncture Site Right Radial Arterial Blood Carboxyhemoglobin 0.3 Arterial Blood Methemoglobin 0.2 Blood Gas A-a O2 Differential 617.1 H Oxyhemoglobin Percent 96.4 Total Hemoglobin 13.3 Blood Gas Temperature 32.9 Blood Gas Respiration Rate 20.0 Blood Gas Actual Respiration Rate 20 Blood Gas Modality VENT - AC FiO2 100.0 Blood Gas Tidal Volume 500.0 Blood Gas Low PEEP Setting 0 Blood Gas Notified Whom M.D. Blood Gas Notified Time 03/02/2017 9:41:40 AM Test 03/02/17 10:08 03/02/17 11:29 03/02/17 11:30 Bedside Glucose 122 129 White Blood Count Pending Red Blood Count Pending Hemoglobin Pending Hematocrit Pending Mean Corpuscular Volume Pending Mean Corpuscular Hemoglobin Pending Mean Corpuscular Hemoglobin Concent Pending Red Cell Distribution Width Pending Platelet Count Pending Mean Platelet Volume Pending Medications Medications Current Medications Amiodarone HCl 900 mg/Dextrose 500 ml @ 0 mls/hr Q0M IV Last administered on 00:09; Admin Dose 1 MLS/HR; Start 03/02/17 at 00:00; Stop 03/02/17 at 23:59 Sodium Chloride (NS) 1,000 ml @ 125 mls/hr Q8H IV Last administered on 10:12; Admin Dose 125 MLS/HR; Start 03/02/17 at 02:39 Acetaminophen (Tylenol Supp) 650 mg Q4H PRN [place] PAIN LEVEL 1-3 OR FEVER; Start 03/02/17 at 03:00 Pantoprazole 40 mg 40 mg DAILY@06 IV Last administered on 03/02/17 10:38; Admin Dose 40 MG; Start 03/02/17 at 06:00 Norepinephrine 250 ml @ 1.875 mls/ hr TITRATE IV ; Start 03/02/17 at 09:30 Vecuronium [place]/Dextrose (Norcuron/D5W) 100 ml @ 5.4 mls/hr [id number] IV ; Start 03/02/17 at 11:30 Acetaminophen (Tylenol Supp) 650 mg Q4H PRN NE TEMP > 37C; Start 03/02/17 at 09:30 Acetaminophen (Tylenol Liquid) 650 mg Q4H PRN PO TEMP > 37C; Start 03/02/17 at 09:30 Acetaminophen (Tylenol Supp) 500 mg Q6H NE ; Start 03/03/17 at 09:30 Acetaminophen (Tylenol Liquid) 500 mg Q6H PO ; Start 03/03/17 at 09:30 Meperidine HCl (Demerol) 12.5 mg Q4H PRN IV POST OPERATIVE SHIVERING; Start at 09:30 Meperidine HCl (Demerol) 25 mg Q4H PRN IV POST OPERATIVE SHIVERING; Start at 09:30 Eye Lubricant ([place] Oint) 1 applic Q6 BOTH EYES ; Start 03/02/17 at 12:00 Eye Lubricant (Artificial Tears Oph) 2 drop Q6 BOTH EYES ; Start 03/02/17 at 12 :00 Diagnostic Test (Pha) (Accu-Chek) 1 ea Q1H XX Last administered on 03/02/17 11:32; Admin Dose 1 EA; Start 03/02/17 at 09:30 Dextrose (D50w Syringe) 25 ml Q15M PRN IV Till BS 80 mg/dL or above x2; Start 03/02/17 at 09:30 Dextrose 50 ml 50 ml Q15M PRN IV Till BS 80 mg/dL or above x2; Start 03/02/17 at 09:30 Fentanyl (Sublimaze) 100 ml @ 2.5 mls/hr TITRATE IV Last administered on 03/02 11:13; Admin Dose 2.5 MLS/HR; Start 03/02/17 at 10:30 TRISH TIM Mar 02, 2017 11:50
[2017-03-02 11:54] LABS: POSITIVE DIFF @See below
[2017-03-02 12:03] LABS: ALBUMIN 3.1 g/dl (3.3-4.9); BILIRUBIN,INDIRECT 0.6 mg/dl (0-1.1); BILIRUBIN,TOTAL 0.6 mg/dl (0.2-1.3); CALCIUM 8.6 mg/dl (8.4-10.2); CREATININE 1.41 mg/dl (0.44-1.00); MAGNESIUM 2.1 mg/dl (1.7-2.5); PHOSPHORUS 1.5 mg/dl (2.5-4.9); TOTAL PROTEIN 6.2 g/dl (6.1-8.1)
[2017-03-02 12:14] LABS: CK-MB 11.2 ng/ml (0.0-2.4)
[2017-03-02 12:18] LABS: POTASSIUM 2.7 mmol/L (3.5-5.1)
[2017-03-02 12:19] LABS: TROPONIN-I 0.279 ng/ml (0.00-0.12)
[2017-03-02 12:20] LABS: INR 1.23; PROTIME 15.6 Sec (12.2-14.2); PT RATIO 1.2
[2017-03-02 12:21] LABS: PARTIAL THROMBOPLASTIN TIME 34.3 Sec (25.0-35.0)
--- NOTE | 2017-03-02 12:23 | CONS ---
Date/Time of Note Date/Time of Note DATE: 03/02/17 TIME: 12:11 Assessment/Plan Assessment/Plan Additional Assessment/Plan IMP: 1. s/p cardiopulmonary arrest: etiology not entirely clear as to whether this was a primary respiratory or cardiac arrest. Will trend TnI and BNP. Cardiac silhouette enlarged and concerning for pericardial effusion. 2. Severe Anoxic Brain Injury: possible progression to brain . although too early to make that determination 3. Shock 4. Ischemic Hepatopathy 5. Aspiration: likely 2/2 #1 6. ARF 7. Sinus luz--query 2/2 B-patricia OD vs. central due to cerebral edema RECS: 1. Vent support; maintain PaCO2 28-30 2. Abx 3. Hypothermia protocol 4. Serial TnI; 2D ECHO 5. IVF's 6. Serial lactates 7. Levophed gtt 8. Prognosis very grim Consultation Date/Type/Reason Admit Date/Time Type of Consultation: Pulm/CCM Reason for Consultation s/p Cardiopulmonary arrest. Hx of Present Illness This is a 61-year-old female with a history of HTN (on metoprolol and enalapril ) who per family patient was feeling unwell for a few days and last night was found unresponsive by son at home. She underwent CPR at by son and by paramedics , s/p epi x 3 and x 2 in the ED. Thereafter, v. fib s/p defibrillation. Admitted to the ICU on hypothermia protocol with clinical and radiographic signs of profound anoxic brain injury. Subjective hx not possible: pt non-verbal, pt critical status Past Medical History HTN Past Surgical History Past Surgical Hx: no surgical history Family History Significant Family History: no pertinent family hx Social History Alcohol Use: none Smoking Status: Never smoker Drug Use: none Exam/Review of Systems Vital Signs Vitals Vital Signs Date Time Temp Pulse Resp B/P Pulse Ox O2 Delivery O2 Flow Rate FiO2 03/02/17 11:30 42 26 86/64 100 03/02/17 11:00 100 03/02/17 11:00 90.6 Mechanical Ventilator Intake and Output 03/01/17 03/01/17 03/02/17 15:00 23:00 07:00 Output Total 1500 ml Balance -1500 ml Exam Constitutional: non-verbal Head: atraumatic Eyes: other (Pupils fixed and dilated ) ENMT: intubated, mucosa pink and moist Neck: non-tender, supple Respiratory: clear to auscultation, crackles/rales Cardiovascular: gallop, irregular rhythm Gastrointestinal: nl liver, spleen, soft Musculoskeletal: nl extremities to inspection Extremities: normal pulses Neurological: other (Flaccid; pupils fixed and dilated; no GAG; no corneals ) Results Result Diagram: 03/02/17 1130 03/02/17 0535 Results 24 hrs Laboratory Tests Test 03/01/17 23:40 03/02/17 00:10 03/02/17 02:40 03/02/17 03:00 White Blood Count 11.4 H Red Blood Count 4.37 Hemoglobin 12.6 Hematocrit 40.8 Mean Corpuscular Volume 93.4 Mean Corpuscular Hemoglobin 28.8 L Mean Corpuscular Hemoglobin Concent 30.9 L Red Cell Distribution Width 13.2 Platelet Count 157 Mean Platelet Volume 10.6 H Neutrophils % 18.8 L Lymphocytes % 68.2 H Monocytes % 4.7 Eosinophils % 1.7 Basophils % 0.6 Nucleated Red Blood Cells % 0.2 H Neutrophils # 2.1 Lymphocytes # 7.8 H Monocytes # 0.5 Eosinophils # 0.2 Basophils # 0.1 Nucleated Red Blood Cells # 0.0 Prothrombin Time 14.7 H Prothrombin Time Ratio 1.1 INR International Normalized Ratio 1.15 Activated Partial Thromboplast Time 53.8 H Sodium Level 147 H Potassium Level 4.8 Chloride Level 117 H Carbon Dioxide Level 19 L Anion Gap 16 Blood Urea Nitrogen 20 Creatinine 1.27 H Glucose Level 206 Lactic Acid Level 12.5 *H 3.0 *H Calcium Level 7.7 L Total Bilirubin 0.2 Direct Bilirubin 0.00 Indirect Bilirubin 0.2 Aspartate Amino Transf (AST/SGOT) 251 H Alanine Aminotransferase (ALT/SGPT) 175 H Alkaline Phosphatase 114 Troponin I Total Protein 6.1 Albumin 3.1 L Globulin 3.00 Albumin/Globulin Ratio 1.03 Salicylates Level < 1.0 L Acetaminophen Level < 10.0 L Ethyl Alcohol Level < 10.0 Blood Gas Specimen Source Blood arterial Arterial Blood Date Drawn 03/02/2017 1:45:58 AM Arterial Blood pH (Temp corrected) 7.217 *L Arterial Blood pCO2 (Temp correct) 42.4 Arterial Blood pO2 (Temp corrected) 113.9 H Arterial Blood HCO3 16.8 L Arterial Blood Base Excess -10.4 L Arterial Blood Oxygen Saturation 97.5 Burak Test ACCEPTAB Arterial Blood Gas Puncture Site Right Radial Arterial Blood Carboxyhemoglobin 0.3 Arterial Blood Methemoglobin 0.3 Blood Gas A-a O2 Differential 556.7 H Oxyhemoglobin Percent 96.9 Total Hemoglobin 12.5 Blood Gas Temperature 37.0 Blood Gas Respiration Rate 20.0 Blood Gas Actual Respiration Rate 20 Blood Gas Modality VENT - AC FiO2 100.0 Blood Gas Tidal Volume 500.0 Blood Gas Low PEEP Setting 0 Blood Gas Inspiratory Pressure 35.0 Blood Gas Critical Value Read Back Arline JIM Blood Gas Notified Whom BR Blood Gas Notified Time 03/02/2017 1:53:32 AM Urine Color YELLOW Urine Clarity SLIGHTLY CLOUDY A Urine pH 7.0 Urine Specific [place] 1.006 Urine Ketones NEGATIVE Urine Nitrite NEGATIVE Urine Bilirubin NEGATIVE Urine Urobilinogen NEGATIVE Urine Leukocyte Esterase NEGATIVE Urine Microscopic RBC 9 H Urine Microscopic WBC 2 Urine Hemoglobin 2+ H Urine Glucose 3+ H Urine Total Protein 2+ H Urine Opiates Screen NEGATIVE Urine Barbiturates NEGATIVE Urine Amphetamines Screen NEGATIVE Urine Benzodiazepines Screen NEGATIVE Urine Cocaine Screen NEGATIVE Urine Cannabinoids NEGATIVE Test 03/02/17 05:35 03/02/17 07:47 03/02/17 09:07 03/02/17 09:11 White Blood Count 4.9 # Red Blood Count 4.18 L Hemoglobin 12.0 Hematocrit 36.2 L Mean Corpuscular Volume 86.6 Mean Corpuscular Hemoglobin 28.7 L Mean Corpuscular Hemoglobin Concent 33.1 Red Cell Distribution Width 13.6 Platelet Count 145 Mean Platelet Volume 10.1 Neutrophils % Segmented Neutrophils % (Manual) 31 L Band Neutrophils % (Manual) 45 H Lymphocytes % Lymphocytes % (Manual) 17 Monocytes % Monocytes % (Manual) 1 Eosinophils % Eosinophils % (Manual) 1 Basophils % Basophils % (Manual) 1 Metamyelocytes % (manual) 3 H Myelocytes % (Manual) 1 H Nucleated Red Blood Cells % 0.0 Neutrophils # Neutrophils # (Manual) 1.6 L Band Neutrophils # 2.2 H Absolute Lymphocytes (Manual) 0.8 Lymphocytes # Monocytes # Absolute Monocytes (Manual) 0.0 L Eosinophils # Basophils # Basophils # (Manual) 0.0 Metamyelocytes # 0.1 H Myelocytes # 0.0 Nucleated Red Blood Cells # Platelet Estimate DECREASED Anisocytosis 1+ Microcytosis 1+ Sodium Level 146 H Potassium Level 3.5 Chloride Level 117 H Carbon Dioxide Level 19 L Anion Gap 14 Blood Urea Nitrogen 22 H Creatinine 1.28 H Glucose Level 134 # Lactic Acid Level 2.8 *H Calcium Level 8.2 L Total Bilirubin 0.3 Direct Bilirubin 0.00 Indirect Bilirubin 0.3 Aspartate Amino Transf (AST/SGOT) 274 H Alanine Aminotransferase (ALT/SGPT) 186 H Alkaline Phosphatase 118 Total Protein 6.6 Albumin 3.3 Globulin 3.30 H Albumin/Globulin Ratio 1.00 Bedside Glucose 95 149 Blood Gas Specimen Source Blood arterial Arterial Blood Date Drawn 03/02/2017 9:08:24 AM Arterial Blood pH (Temp corrected) 7.364 Arterial Blood pCO2 (Temp correct) 27.1 L Arterial Blood pO2 (Temp corrected) 78.5 L Arterial Blood HCO3 15.8 L Arterial Blood Base Excess -9.4 L Arterial Blood Oxygen Saturation 96.9 Burak Test ACCEPTAB Arterial Blood Gas Puncture Site Right Radial Arterial Blood Carboxyhemoglobin 0.3 Arterial Blood Methemoglobin 0.2 Blood Gas A-a O2 Differential 617.1 H Oxyhemoglobin Percent 96.4 Total Hemoglobin 13.3 Blood Gas Temperature 32.9 Blood Gas Respiration Rate 20.0 Blood Gas Actual Respiration Rate 20 Blood Gas Modality VENT - AC FiO2 100.0 Blood Gas Tidal Volume 500.0 Blood Gas Low PEEP Setting 0 Blood Gas Notified Whom Arline Blood Gas Notified Time 03/02/2017 9:41:40 AM Test 03/02/17 10:08 03/02/17 11:29 03/02/17 11:30 Bedside Glucose 122 129 White Blood Count 3.5 #L Red Blood Count 4.22 Hemoglobin 11.6 L Hematocrit 36.5 L Mean Corpuscular Volume 86.5 Mean Corpuscular Hemoglobin 27.5 L Mean Corpuscular Hemoglobin Concent 31.8 L Red Cell Distribution Width 13.9 Platelet Count 133 L Mean Platelet Volume 10.2 Neutrophils % Lymphocytes % Monocytes % Eosinophils % Basophils % Nucleated Red Blood Cells % 0.0 Neutrophils # Lymphocytes # Monocytes # Eosinophils # Basophils # Nucleated Red Blood Cells # Lactic Acid Level 2.2 *H Medications Medications Current Medications Amiodarone HCl 900 mg/Dextrose 500 ml @ 0 mls/hr Q0M IV Last administered on t 00:09; Admin Dose 1 MLS/HR; Start 03/02/17 at 00:00; Stop 03/02/17 at 23:59 Sodium Chloride (NS) 1,000 ml @ 125 mls/hr Q8H IV Last administered on 10:12; Admin Dose 125 MLS/HR; Start 03/02/17 at 02:39 Acetaminophen (Tylenol Supp) 650 mg Q4H PRN MD PAIN LEVEL 1-3 OR FEVER; Start 03/02/17 at 03:00 Pantoprazole 40 mg 40 mg DAILY@06 IV Last administered on 03/02/17 10:38; Admin Dose 40 MG; Start 03/02/17 at 06:00 Norepinephrine 250 ml @ 1.875 mls/ hr TITRATE IV ; Start 03/02/17 at 09:30 Vecuronium [place]/Dextrose (Norcuron/D5W) 100 ml @ 5.4 mls/hr [id number] IV ; Start 03/02/17 at 11:30 Acetaminophen (Tylenol Supp) 650 mg Q4H PRN MD TEMP > 37C; Start 03/02/17 at 09:30 Acetaminophen (Tylenol Liquid) 650 mg Q4H PRN PO TEMP > 37C; Start 03/02/17 at 09:30 Acetaminophen (Tylenol Supp) 500 mg Q6H MD ; Start 03/03/17 at 09:30 Acetaminophen (Tylenol Liquid) 500 mg Q6H PO ; Start 03/03/17 at 09:30 Meperidine HCl (Demerol) 12.5 mg Q4H PRN IV POST OPERATIVE SHIVERING; Start at 09:30 Meperidine HCl (Demerol) 25 mg Q4H PRN IV POST OPERATIVE SHIVERING; Start at 09:30 Eye Lubricant ([place]wa Oint) 1 applic Q6 BOTH EYES ; Start 03/02/17 at 12:00 Eye Lubricant (Artificial Tears Oph) 2 drop Q6 BOTH EYES ; Start 03/02/17 at 12 :00 Diagnostic Test (Pha) (Accu-Chek) 1 ea Q1H XX Last administered on 03/02/17 11:32; Admin Dose 1 EA; Start 03/02/17 at 09:30 Dextrose (D50w Syringe) 25 ml Q15M PRN IV Till BS 80 mg/dL or above x2; Start 03/02/17 at 09:30 Dextrose 50 ml 50 ml Q15M PRN IV Till BS 80 mg/dL or above x2; Start 03/02/17 at 09:30 Fentanyl (Sublimaze) 100 ml @ 2.5 mls/hr TITRATE IV Last administered on 03/02t 11:13; Admin Dose 2.5 MLS/HR; Start 03/02/17 at 10:30 SELIN CHRISTIANSEN MD Mar 02, 2017 12:23
[2017-03-02] MEDS ORDERED: LACTATED RINGER'S 500 ML IV ONE (12:30)
[2017-03-02] MEDS: OCULAR LUBRICANT 3.5 GM OPH OINT BOTH EYES SCH ×2 (12:48→18:12)
[2017-03-02] MEDS: ARTIFICIAL TEARS 15 ML OPH BOTH EYES SCH ×2 (12:48→18:12)
[2017-03-02 12:49] LABS: ANISOCYTOSIS 2+ (0-0); BURR CELLS 2+ (0-0); EOSINOPHILS % (M) 1 % (0-7); GIANT THROMBO% (M) 1 % (0-0); METAMYELOCYTES %M 2 % (0-0); MICROCYTOSIS 2+ (0-0); PLATELET ESTIMATE DECREASED; POIKILOCYTOSIS 3+ (0-0); POLYCHROMASIA 1+ (0-0); SPHEROCYTES 1+ (0-0)
[2017-03-02] MEDS: PIPER-TAZO 3.375 GM IV (PMX) 100 ML IVPB SCH ×2 (12:54→18:10)
[2017-03-02] MEDS: POTASSIUM CHLORIDE 50 ML IVPB PRN ×3 (13:51→16:06)
[2017-03-02 15:08] LABS: AADO2 Arterial 483.7 mmHg (7.0-24.0); Allen Test ACCEPTAB; Arterial Base Excess -8.5 mmol/L (-3.0-3); Arterial COHb 0.3 % (0.0-3.0); Arterial Fraction of Oxyhgb 98.3 % (93.0-99.0); Arterial HCO3 14.7 mmol/L (22.0-26.0); Arterial MetHb 0.3 % (0.0-1.5); Arterial Total Hemglobin 12.7 g/dl (12.0-18.0); MODE VENT - AC
[2017-03-02 17:14] LABS: ABNORMAL IP MESSAGE 1; HEMATOCRIT 34.6 % (37.0-47.0); HEMOGLOBIN 11.6 g/dl (12.0-16.0); MEAN CORPUSCULAR HEMOGLOBIN 28.9 pg (29.0-33.0); MEAN CORPUSCULAR HGB CONC 33.5 g/dl (32.0-37.0); MEAN CORPUSCULAR VOLUME 86.1 fl (82.0-101.0); MEAN PLATELET VOLUME 10.5 fl (7.4-10.4); PLATELET COUNT 138 10^3/UL (140-415); RED BLOOD COUNT 4.02 10^6/ul (4.20-5.40); RED CELL DISTRIBUTION WIDTH 13.8 % (11.5-14.5); WHITE BLOOD COUNT 3.5 10^3/ul (4.8-10.8)
[2017-03-02 17:17] LABS: POSITIVE DIFF @See below
[2017-03-02 17:29] LABS: INR 1.28; PROTIME 16.1 Sec (12.2-14.2); PT RATIO 1.3
[2017-03-02 17:30] LABS: PARTIAL THROMBOPLASTIN TIME 35.2 Sec (25.0-35.0)
[2017-03-02 17:35] LABS: CALCIUM 8.5 mg/dl (8.4-10.2); CREATININE 1.51 mg/dl (0.44-1.00); MAGNESIUM 1.9 mg/dl (1.7-2.5); PHOSPHORUS 1.2 mg/dl (2.5-4.9); POTASSIUM 3.1 mmol/L (3.5-5.1)
[2017-03-02 17:57] LABS: MONOCYTES % (M) 3 % (0-11); PLATELET ESTIMATE NORMAL
[2017-03-02 18:00] LABS: TROPONIN-I 0.229 ng/ml (0.00-0.12)
[2017-03-02] MEDS ORDERED: POTASSIUM PHOSPHATE 30 MM in SOD CHLORIDE 0.9% 250 ML IVPB ONE (20:00)
[2017-03-02 21:15] LABS: AADO2 Arterial 260.1 mmHg (7.0-24.0); Allen Test ACCEPTAB; Arterial Base Excess -9.2 mmol/L (-3.0-3); Arterial COHb 0.3 % (0.0-3.0); Arterial Fraction of Oxyhgb 95.2 % (93.0-99.0); Arterial HCO3 13.9 mmol/L (22.0-26.0); Arterial MetHb 0.3 % (0.0-1.5); Arterial Total Hemglobin 12.2 g/dl (12.0-18.0); MODE VENT - AC
--- NOTE | 2017-03-02 23:26 | CONS ---
Date/Time of Note Date/Time of Note DATE: 03/02/17 TIME: 23:26 Assessment/Plan Assessment/Plan Additional Assessment/Plan Date of consultation: 03/02/2017 Requesting physician: Dr. Major with the emergency department Consulting service: Neurosurgery This is a 61-year-old female with only past medical history known at this time to be hypertension was been taking metoprolol. The patient according to the records and the son has not been feeling well for the past several days to weeks for unknown reasons. The son tried to bring the patient to the emergency department earlier today but noticed that the mom had fell and was unresponsive. The paramedics arrived and had to do prolonged resuscitation and apparently were able to get a cardiac rhythm back. Upon arrival to the emergency department the patient was in asystole again and had to be coded and a cardiac rhythm was again able to be achieved. According to report, epinephrine another possible resuscitation medications needed to be given to the patient during the coding sessions. A CT of the head was done that showed evidence of sulcal effacement and obscuration of the great white matter junction suggestive of an anoxic brain injury and transtentorial herniation. The emergency physician contacted to see if there is any neurosurgical intervention indicated. No further past medical history is known about the patient. The patient has been started on the hypothermia protocol. Past medical/past surgical history: Unknown other than above Social history: Unknown Review of systems: Unable to obtain as the patient is intubated, comatose Allergies: Unknown Physical examination: The patient is seen in the intensive care unit next to the nurse. She is intubated and on the ventilator. Her pupils are 7 mm bilaterally and nonreactive to light. As part of the hypothermia protocol the patient has been pharmacologically paralyzed. There is no movement of the upper or lower extremities and there is no eye opening. The patient does not follow commands. Imaging: DT of the head without contrast does show evidence of diffuse cortical sulcal effacement and findings that are consistent with diffuse cerebral edema that could be related to an anoxic brain injury. There is evidence of transtentorial herniation. There is no evidence of a mass lesion or intracranial hemorrhage noted. Assessment/plan: I had a detailed discussion with the emergency department physician, Dr. Major as well as admitting hospitalist regarding the patient's critical condition and a poor prognosis. Unfortunately there is no acute neurosurgical intervention possible for an diffuse anoxic brain injury that is usually considered to be irreversible in nature especially in the setting of transtentorial herniation. I explained to Dr. Major the patient can be given IV mannitol that could possibly help on a temporary basis minimize further suspected raise intracranial pressure however given the patient's gait unstable cardiac status, the mannitol can cause hypovolemia and can put the patient again back to asystole. The patient will need an urgent cardiology evaluation to help determine a possible cause for the patient's cardiac arrest. The patient has already been started on the hypo-thermia protocol. RAKAN ANG MD Mar 02, 2017 23:26
[2017-03-02 23:48] LABS: ABNORMAL IP MESSAGE 1; HEMATOCRIT 33.9 % (37.0-47.0); HEMOGLOBIN 11.3 g/dl (12.0-16.0); MEAN CORPUSCULAR HEMOGLOBIN 28.5 pg (29.0-33.0); MEAN CORPUSCULAR HGB CONC 33.3 g/dl (32.0-37.0); MEAN CORPUSCULAR VOLUME 85.6 fl (82.0-101.0); MEAN PLATELET VOLUME 10.1 fl (7.4-10.4); PLATELET COUNT 135 10^3/UL (140-415); RED BLOOD COUNT 3.96 10^6/ul (4.20-5.40); RED CELL DISTRIBUTION WIDTH 14.1 % (11.5-14.5); WHITE BLOOD COUNT 6.5 10^3/ul (4.8-10.8)
[2017-03-02 23:52] LABS: POSITIVE DIFF @See below
[2017-03-03] VITALS (104 sets, daily range): BP systolic 75–126; BP diastolic 50–82; PULSE 60–72; RESP 19–26
[2017-03-03 00:05] LABS: INR 1.3; PARTIAL THROMBOPLASTIN TIME 35.7 Sec (25.0-35.0); PROTIME 16.3 Sec (12.2-14.2); PT RATIO 1.3
[2017-03-03 00:06] LABS: CALCIUM 8.8 mg/dl (8.4-10.2); CREATININE 1.79 mg/dl (0.44-1.00); MAGNESIUM 1.8 mg/dl (1.7-2.5); PHOSPHORUS 4.8 mg/dl (2.5-4.9); POTASSIUM 4.7 mmol/L (3.5-5.1)
[2017-03-03 00:27] LABS: ANISOCYTOSIS 2+ (0-0); METAMYELOCYTES %M 3 % (0-0); MICROCYTOSIS 2+ (0-0); MONOCYTES % (M) 4 % (0-11); PLATELET ESTIMATE DECREASED; POIKILOCYTOSIS 2+ (0-0); POLYCHROMASIA 3+ (0-0); REACTIVE LYMPHOCYTES% (M) 1 % (0-0)
[2017-03-03] MEDS: OCULAR LUBRICANT 3.5 GM OPH OINT BOTH EYES SCH ×4 (00:35→18:21)
[2017-03-03] MEDS: ARTIFICIAL TEARS 15 ML OPH BOTH EYES SCH ×4 (00:35→18:21)
[2017-03-03] MEDS: PIPER-TAZO 3.375 GM IV (PMX) 100 ML IVPB SCH ×4 (00:37→18:21)
[2017-03-03 00:56] LABS: TROPONIN-I 0.197 ng/ml (0.00-0.12)
[2017-03-03] MEDS: ACCU-CHEK XX SCH ×10 (00:59→09:36)
[2017-03-03] MEDS ORDERED: SOD CHLORIDE 0.9% 1,000 ML IV ONE (02:30)
[2017-03-03] MEDS: PROPOFOL 100 ML IV SCH (03:33)
--- NOTE | 2017-03-03 03:44 | CONS ---
DATE OF ADMISSION: 03/02/2017 DATE OF CONSULTATION: 03/02/2017 NEUROLOGICAL CONSULTATION Thank you, Dr. Sommers, for your kind referral, for evaluation of anoxic encephalopathy. HISTORY OF PRESENT ILLNESS: The patient is a 61-year-old lady with a history of hypertension, who did not feel well on the day of admission. Son wanted to take her to the emergency room, but she collapsed. Paramedics came 5 minutes after, found patient in asystole. She had another episode of cardiac arrest in the emergency room. She was put on hypothermia. She had CAT scan of the head done already, which shows diffuse cerebral edema, loss of welch white junction, compatible with diffuse anoxic event. The patient is currently on fentanyl and Propofol. ALLERGIES: NONE. SOCIAL HISTORY: Negative per report. FAMILY HISTORY: Unknown. PHYSICAL EXAMINATION: Today, VITAL SIGNS: Temperature 94, 48 pulse, 26 respirations, 96/67 blood pressure. GENERAL: Not in acute distress, lying in bed, intubated orally. HEENT: Normocephalic, atraumatic head. NECK: No carotid bruits, lymphadenopathy, thyromegaly. LUNGS: Clear to auscultation bilaterally. CARDIAC: Normal cardiac rhythm and sounds. ABDOMEN: Soft. EXTREMITIES: No cyanosis, clubbing or edema. NEUROLOGIC: She is comatose. Eyes closed. No response to voice, pain or commands. No response to visual threat. Pupils about 5 mm, fixed. No extraocular movements. Corneal reflexes and gag were absent. No response to pain. Flaccid extremities. No reflexes. LABORATORY DATA: The patient's labs show WBC 3.5, hemoglobin 11, hematocrit 36 , platelets 133. Blood gas 7.36 pH, pCO2 27, pO2 76. Sodium 147, potassium 2.7 , chloride 121, bicarbonate 19, BUN 24, creatinine 1.4, lactate 2.2, AST 205, ALT 162, CK 1500. Elevated troponins, of course. Albumin 3.1. Tox screen was negative for drugs. IMPRESSION: Anoxic encephalopathy. Patient is currently on hypothermia protocol changes secondary to anoxia seen on CAT scan on admission. Evaluation is limited because of hypothermia and presence of sedation, so I will reevaluate when patient is off sedation. Overall, given CAT scan findings, poor prognosis. The patient already has slightly elevated sodium level, which is okay to continue to decrease cerebral edema and also her pCO2 is on the lower side. Continue current treatment. We will follow up. Dictated By: MARLO BACON/RIYA Conf#: [id number] DID#: [id number] CC: BARBARA SOMMERS MD;*EndCC* MTDD
[2017-03-03] MEDS: VECURONIUM 100 MG in DEXTROSE 5% 100 ML IV SCH (06:02)
[2017-03-03 06:07] LABS: ABNORMAL IP MESSAGE 1; HEMATOCRIT 31.8 % (37.0-47.0); HEMOGLOBIN 10.6 g/dl (12.0-16.0); MEAN CORPUSCULAR HEMOGLOBIN 28.3 pg (29.0-33.0); MEAN CORPUSCULAR HGB CONC 33.3 g/dl (32.0-37.0); MEAN PLATELET VOLUME 10.6 fl (7.4-10.4); PLATELET COUNT 122 10^3/UL (140-415); RED BLOOD COUNT 3.74 10^6/ul (4.20-5.40); RED CELL DISTRIBUTION WIDTH 14.5 % (11.5-14.5); WHITE BLOOD COUNT 7.1 10^3/ul (4.8-10.8)
[2017-03-03 06:14] LABS: POSITIVE DIFF @See below
[2017-03-03 06:18] LABS: INR 1.44; PARTIAL THROMBOPLASTIN TIME 38.3 Sec (25.0-35.0); PROTIME 17.6 Sec (12.2-14.2); PT RATIO 1.4
[2017-03-03 06:21] LABS: ALBUMIN 2.8 g/dl (3.3-4.9); ALBUMIN/GLOBULIN RATIO 1.07; CALCIUM 7.8 mg/dl (8.4-10.2); CREATININE 1.86 mg/dl (0.44-1.00); POTASSIUM 4.7 mmol/L (3.5-5.1); TOTAL PROTEIN 5.4 g/dl (6.1-8.1)
[2017-03-03 06:41] LABS: Allen Test ACCEPTAB; Arterial Base Excess -7.8 mmol/L (-3.0-3); Arterial COHb 0.3 % (0.0-3.0); Arterial Fraction of Oxyhgb 95.3 % (93.0-99.0); Arterial HCO3 15.5 mmol/L (22.0-26.0); Arterial MetHb 0.2 % (0.0-1.5); Arterial Total Hemglobin 11.8 g/dl (12.0-18.0); MODE VENT - AC
[2017-03-03 06:55] LABS: AMYLASE < 30 U/L (11-123)
[2017-03-03] MEDS: ACETAMINOPHEN 650MG/20.3ML CUP PO SCH ×3 (08:47→21:31)
[2017-03-03] MEDS: FAMOTIDINE 20 MG INJ IV SCH (08:48)
[2017-03-03] MEDS: ACETAMINOPHEN 650 MG SUPP PR SCH ×3 (08:48→21:30)
[2017-03-03 09:34] LABS: ANISOCYTOSIS 1+ (0-0); BASOPHILS % (M) 1 % (0-2); EOSINOPHILS % (M) 1 % (0-7); MICROCYTOSIS 1+ (0-0); PLATELET ESTIMATE DECREASED; POIKILOCYTOSIS 1+ (0-0)
--- NOTE | 2017-03-03 11:06 | RADRPT ---
PROCEDURE: XR Chest. CLINICAL INDICATION: Shortness of breath. TECHNIQUE: Single frontal view. COMPARISON: 03/02/2017. FINDINGS: The endotracheal tube and nasogastric tube remain in satisfactory position. Pulmonary edema is uncha nged. The heart is enlarged. There is no pleural effusion. There is no pneumothorax. IMPRESSION: 1. No change from 03/02/2017. RPTAT: QQ .Familia Mendez MD, MD Date Time Electronically viewed and signed by .Familia Mendez MD, on 03/03/2017 11:06 .R/
--- NOTE | 2017-03-03 11:43 | CONS ---
Date/Time of Note Date/Time of Note DATE: 03/03/17 TIME: 11:40 Consult Date/Type/Reason Admit Date/Time Mar 02, 2017 at 02:41 Initial Consult Date Type of Consultation: Pulm/CCM Subjective Off of hypothermia protocol. No spontaneous movement, no GAG; pupils fixed and dilated. Objective Vital Signs Date Time Temp Pulse Resp B/P Pulse Ox O2 Delivery O2 Flow Rate FiO2 03/03/17 11:15 72 26 95/59 99 03/03/17 11:00 97.8 03/03/17 11:00 Mechanical Ventilator 03/03/17 08:00 70 Intake and Output 03/02/17 03/02/17 03/03/17 15:00 23:00 07:00 Intake Total 4306 ml 442.98 ml 1686.36 ml Output Total 667 ml 351 ml 228 ml Balance 3639 ml 91.98 ml 1458.36 ml Exam HEENT: Neck supple; no JVD; no LAD; ET tube in place CVS: RRR, S1 and S2 CHEST: Coarse rhonchi b/l ABD: Soft, NT, + BS EXT: No c/c/e NEURO: Flaccid; no GAG; no spont respirations; pupils fixed and dilated Results/Medications Result Diagram: 03/03/17 0539 03/03/17 0539 Results 24 hrs Laboratory Tests Test 03/02/17 12:40 03/02/17 13:36 03/02/17 15:01 03/02/17 15:07 Bedside Glucose 116 105 115 Blood Gas Specimen Source Blood arterial Arterial Blood Date Drawn 03/02/2017 3:00:15 PM Arterial Blood pH (Temp corrected) 7.420 Arterial Blood pCO2 (Temp correct) 22.7 L Arterial Blood pO2 (Temp corrected) 211.8 H Arterial Blood HCO3 14.7 L Arterial Blood Base Excess -8.5 L Arterial Blood Oxygen Saturation 98.9 H Burak Test ACCEPTAB Arterial Blood Gas Puncture Site Right Radial Arterial Blood Carboxyhemoglobin 0.3 Arterial Blood Methemoglobin 0.3 Blood Gas A-a O2 Differential 483.7 H Oxyhemoglobin Percent 98.3 Total Hemoglobin 12.7 Blood Gas Temperature 34.9 Blood Gas Respiration Rate 26.0 Blood Gas Actual Respiration Rate 26 Blood Gas Modality VENT - AC FiO2 100.0 Blood Gas Tidal Volume 500.0 Blood Gas Low PEEP Setting 5.0 Blood Gas Notified Whom TM Blood Gas Notified Time 03/02/2017 3:08:00 PM Test 03/02/17 17:03 03/02/17 17:05 03/02/17 19:38 03/02/17 21:07 White Blood Count 3.5 L Red Blood Count 4.02 L Hemoglobin 11.6 L Hematocrit 34.6 L Mean Corpuscular Volume 86.1 Mean Corpuscular Hemoglobin 28.9 L Mean Corpuscular Hemoglobin Concent 33.5 Red Cell Distribution Width 13.8 Platelet Count 138 L Mean Platelet Volume 10.5 H Neutrophils % Segmented Neutrophils % (Manual) 59 Band Neutrophils % (Manual) 22 H Lymphocytes % Lymphocytes % (Manual) 17 Monocytes % Monocytes % (Manual) 3 Eosinophils % Basophils % Nucleated Red Blood Cells % 0.0 Neutrophils # Neutrophils # (Manual) 2.1 Band Neutrophils # 0.7 H Absolute Lymphocytes (Manual) 0.5 L Lymphocytes # Monocytes # Absolute Monocytes (Manual) 0.1 L Eosinophils # Basophils # Nucleated Red Blood Cells # Platelet Estimate NORMAL Prothrombin Time 16.1 H Prothrombin Time Ratio 1.3 INR International Normalized Ratio 1.28 Activated Partial Thromboplast Time 35.2 H Fibrinogen 252.0 # Sodium Level 150 H Potassium Level 3.1 L Chloride Level 123 H Carbon Dioxide Level 17 L Anion Gap 13 Blood Urea Nitrogen 24 H Creatinine 1.51 H Glucose Level 128 Lactic Acid Level 3.0 *H Calcium Level 8.5 Phosphorus Level 1.2 L Magnesium Level 1.9 Troponin I 0.229 *H Amylase Level 37 Lipase 45 Bedside Glucose 124 134 Blood Gas Specimen Source Blood arterial Arterial Blood Date Drawn 03/02/2017 9:10:30 PM Arterial Blood pH (Temp corrected) 7.417 Arterial Blood pCO2 (Temp correct) 21.7 L Arterial Blood pO2 (Temp corrected) 74.2 L Arterial Blood HCO3 13.9 L Arterial Blood Base Excess -9.2 L Arterial Blood Oxygen Saturation 95.8 Burak Test ACCEPTAB Arterial Blood Gas Puncture Site Right Radial Arterial Blood Carboxyhemoglobin 0.3 Arterial Blood Methemoglobin 0.3 Blood Gas A-a O2 Differential 260.1 H Oxyhemoglobin Percent 95.2 Total Hemoglobin 12.2 Blood Gas Temperature 35.2 Blood Gas Respiration Rate 23.0 Blood Gas Actual Respiration Rate 26 Blood Gas Modality VENT - AC FiO2 50.0 Blood Gas Tidal Volume 500.0 Blood Gas Low PEEP Setting 5.0 Blood Gas Critical Value Read Back Jes DORANTES R.N Blood Gas Notified Whom MM Blood Gas Notified Time 03/02/2017 9:15:41 PM Test 03/02/17 21:08 03/02/17 21:34 03/02/17 23:15 03/02/17 23:42 Lactic Acid Level 3.7 *H Bedside Glucose 146 155 White Blood Count 6.5 # Red Blood Count 3.96 L Hemoglobin 11.3 L Hematocrit 33.9 L Mean Corpuscular Volume 85.6 Mean Corpuscular Hemoglobin 28.5 L Mean Corpuscular Hemoglobin Concent 33.3 Red Cell Distribution Width 14.1 Platelet Count 135 L Mean Platelet Volume 10.1 Neutrophils % Segmented Neutrophils % (Manual) 36 L Band Neutrophils % (Manual) 44 H Lymphocytes % Lymphocytes % (Manual) 12 L Reactive Lymphocytes % (Manual) 1 H Monocytes % Monocytes % (Manual) 4 Eosinophils % Basophils % Metamyelocytes % (manual) 3 H Nucleated Red Blood Cells % 0.0 Neutrophils # Neutrophils # (Manual) 2.5 Band Neutrophils # 2.8 H Absolute Lymphocytes (Manual) 0.7 L Lymphocytes # Reactive Lymphocytes # 0.0 Monocytes # Absolute Monocytes (Manual) 0.2 L Eosinophils # Basophils # Metamyelocytes # 0.1 H Nucleated Red Blood Cells # Platelet Estimate DECREASED Polychromasia 3+ Poikilocytosis 2+ Anisocytosis 2+ Microcytosis 2+ Prothrombin Time 16.3 H Prothrombin Time Ratio 1.3 INR International Normalized Ratio 1.30 Activated Partial Thromboplast Time 35.7 H Fibrinogen 253.0 Sodium Level 150 H Potassium Level 4.7 Chloride Level 122 H Carbon Dioxide Level 18 L Anion Gap 15 Blood Urea Nitrogen 29 H Creatinine 1.79 H Glucose Level 150 Calcium Level 8.8 Phosphorus Level 4.8 # Magnesium Level 1.8 Troponin I 0.197 *H Amylase Level 34 Lipase 30 Test 03/02/17 23:58 03/03/17 00:58 03/03/17 02:10 03/03/17 03:07 Bedside Glucose 139 132 139 Blood Gas Specimen Source Blood arterial Arterial Blood Date Drawn 03/03/2017 3:15:00 AM Arterial Blood pH (Temp corrected) 7.431 Arterial Blood pCO2 (Temp correct) 23.3 L Arterial Blood pO2 (Temp corrected) 73.8 L Arterial Blood HCO3 15.5 L Arterial Blood Base Excess -7.8 L Arterial Blood Oxygen Saturation 95.8 Burak Test ACCEPTAB Arterial Blood Gas Puncture Site Right Radial Arterial Blood Carboxyhemoglobin 0.3 Arterial Blood Methemoglobin 0.2 Blood Gas A-a O2 Differential 259.0 H Oxyhemoglobin Percent 95.3 Total Hemoglobin 11.8 L Blood Gas Temperature 35.0 Blood Gas Respiration Rate 26.0 Blood Gas Actual Respiration Rate 26 Blood Gas Modality VENT - AC FiO2 50.0 Blood Gas Tidal Volume 500.0 Blood Gas Low PEEP Setting 5.0 Blood Gas Inspiratory Pressure 37.0 Blood Gas Critical Value Read Back Jes DORANTES R.N Blood Gas Notified Whom MM Blood Gas Notified Time 03/03/2017 3:21:00 AM Test 03/03/17 04:57 03/03/17 05:39 03/03/17 06:56 03/03/17 08:07 Bedside Glucose 126 100 105 White Blood Count 7.1 Red Blood Count 3.74 L Hemoglobin 10.6 L Hematocrit 31.8 L Mean Corpuscular Volume 85.0 Mean Corpuscular Hemoglobin 28.3 L Mean Corpuscular Hemoglobin Concent 33.3 Red Cell Distribution Width 14.5 Platelet Count 122 L Mean Platelet Volume 10.6 H Neutrophils % Segmented Neutrophils % (Manual) 25 L Band Neutrophils % (Manual) 43 H Lymphocytes % Lymphocytes % (Manual) 30 Monocytes % Eosinophils % Eosinophils % (Manual) 1 Basophils % Basophils % (Manual) 1 Nucleated Red Blood Cells % 0.0 Neutrophils # Neutrophils # (Manual) 2.0 Band Neutrophils # 3.0 H Absolute Lymphocytes (Manual) 2.1 Lymphocytes # Monocytes # Eosinophils # Basophils # Basophils # (Manual) 0.0 Nucleated Red Blood Cells # Platelet Estimate DECREASED Poikilocytosis 1+ Anisocytosis 1+ Microcytosis 1+ Prothrombin Time 17.6 H Prothrombin Time Ratio 1.4 INR International Normalized Ratio 1.44 Activated Partial Thromboplast Time 38.3 H Fibrinogen 257.0 Sodium Level 153 H Potassium Level 4.7 Chloride Level 127 H Carbon Dioxide Level 17 L Anion Gap 14 Blood Urea Nitrogen 31 H Creatinine 1.86 H Glucose Level 107 # Lactic Acid Level 2.0 Calcium Level 7.8 L Total Bilirubin 1.0 Direct Bilirubin 0.00 Indirect Bilirubin 1.0 Aspartate Amino Transf (AST/SGOT) 112 H Alanine Aminotransferase (ALT/SGPT) 122 H Alkaline Phosphatase 55 Total Protein 5.4 L Albumin 2.8 L Globulin 2.60 Albumin/Globulin Ratio 1.07 Amylase Level < 30 Lipase 30 Test 03/03/17 09:24 Bedside Glucose 103 Medications Current Medications Acetaminophen 650 mg 650 mg Q4H PRN [place] PAIN LEVEL 1-3 OR FEVER; Start at 03:00 Vecuronium [place]/Dextrose (Norcuron/D5W) 100 ml @ 5.4 mls/hr [id number] IV Last administered on 03/02/17 17:45; Admin Dose 2.7 MLS/HR; Start 03/02/17 at 11:30 Acetaminophen (Tylenol Supp) 650 mg Q4H PRN [place] TEMP > 37C; Start 03/02/17 at 09:30 Acetaminophen (Tylenol Liquid) 650 mg Q4H PRN PO TEMP > 37C; Start 03/02/17 at 09:30 Acetaminophen (Tylenol Supp) 500 mg Q6H [place] ; Start 03/03/17 at 09:30 Acetaminophen (Tylenol Liquid) 500 mg Q6H PO Last administered on 03/03/17 08 :47; Admin Dose 500 MG; Start 03/03/17 at 09:30 Meperidine HCl (Demerol) 12.5 mg Q4H PRN IV POST OPERATIVE SHIVERING; Start at 09:30 Meperidine HCl (Demerol) 25 mg Q4H PRN IV POST OPERATIVE SHIVERING; Start at 09:30 Eye Lubricant (Akwa Oint) 1 applic Q6 BOTH EYES Last administered on 05:52; Admin Dose 1 APPLIC; Start 03/02/17 at 12:00 Eye Lubricant 2 drop 2 drop Q6 BOTH EYES Last administered on 03/03/17 05:52 ; Admin Dose 2 DROP; Start 03/02/17 at 12:00 Piperacillin Sod/ Tazobactam Sod 100 ml @ 200 mls/hr Q6 IVPB Last administered on 03/03/17 01:03; Admin Dose 200 MLS/HR; Start 03/02/17 at 12: 30 Norepinephrine/ Dextrose (Levophed/D5W) 500 ml @ 0 mls/hr TITRATE IV Last administered on 03/03/17 05:19; Admin Dose 2.5 MLS/HR; Start 03/02/17 at 19: 00 Famotidine 20 mg 20 mg DAILY IV Last administered on 03/03/17 08:48; Admin Dose 20 MG; Start 03/03/17 at 09:00 Sodium Chloride (NS) 1,000 ml @ 60 mls/hr [id number] IV Last administered on 22:41; Admin Dose 60 MLS/HR; Start 03/02/17 at 22:00 Assessment/Plan Chief Complaint/Hosp Course This is a 61-year-old female with a history of HTN (on metoprolol and enalapril ) who per family patient was feeling unwell for a few days and last night was found unresponsive by son at home. She underwent CPR at by son and by paramedics , s/p epi x 3 and x 2 in the ED. Thereafter, v. fib s/p defibrillation. Admitted to the ICU on hypothermia protocol with clinical and radiographic signs of profound anoxic brain injury. Problems: Additional Assessment/Plan IMP: 1. s/p cardiopulmonary arrest: etiology not entirely clear as to whether this was a primary respiratory or cardiac arrest. Cardiac silhouette enlarged and concerning for pericardial effusion. 2. Severe Anoxic Brain Injury: possible progression to brain . although too early to make that determination 3. Shock 4. Ischemic Hepatopathy 5. Aspiration: likely 2/2 #1 6. ARF--likely due to pre-renal vs. ATN 7. Sinus luz--query 2/2 B-patricia OD vs. central due to cerebral edema RECS: 1. Vent support; maintain PaCO2 28-30 2. Abx 3. EEG 4. 2D ECHO 5. Neuro eval 6. Serial lactates 7. Levophed gtt 8. Prognosis very grim 35 min cc time SELIN CHRISTIANSEN MD Mar 03, 2017 11:43
[2017-03-03 12:25] LABS: ABNORMAL IP MESSAGE 1; HEMATOCRIT 31.4 % (37.0-47.0); HEMOGLOBIN 10.4 g/dl (12.0-16.0); MEAN CORPUSCULAR HEMOGLOBIN 28.8 pg (29.0-33.0); MEAN CORPUSCULAR HGB CONC 33.1 g/dl (32.0-37.0); MEAN PLATELET VOLUME 11.2 fl (7.4-10.4); PLATELET COUNT 126 10^3/UL (140-415); RED BLOOD COUNT 3.61 10^6/ul (4.20-5.40); RED CELL DISTRIBUTION WIDTH 14.7 % (11.5-14.5); WHITE BLOOD COUNT 6.7 10^3/ul (4.8-10.8)
[2017-03-03 12:47] LABS: POSITIVE DIFF @See below
--- NOTE | 2017-03-03 12:47 | CONS ---
Date/Time of Note Date/Time of Note DATE: 03/03/17 TIME: 12:43 Consult Date/Type/Reason Admit Date/Time Mar 02, 2017 at 02:41 Initial Consult Date Type of Consultation: neuro Subjective no events, off hypothermia. No seizures. Objective Vital Signs Date Time Temp Pulse Resp B/P Pulse Ox O2 Delivery O2 Flow Rate FiO2 03/03/17 12:02 72 03/03/17 12:00 98.4 03/03/17 11:15 26 95/59 99 03/03/17 11:00 Mechanical Ventilator 03/03/17 08:00 70 Intake and Output 03/02/17 03/02/17 03/03/17 15:00 23:00 07:00 Intake Total 4306 ml 442.98 ml 1686.36 ml Output Total 667 ml 351 ml 228 ml Balance 3639 ml 91.98 ml 1458.36 ml Results/Medications Result Diagram: 03/03/17 0539 03/03/17 0539 Results 24 hrs Laboratory Tests Test 03/02/17 13:36 03/02/17 15:01 03/02/17 15:07 03/02/17 17:03 Bedside Glucose 105 115 Blood Gas Specimen Source Blood arterial Arterial Blood Date Drawn 03/02/2017 3:00:15 PM Arterial Blood pH (Temp corrected) 7.420 Arterial Blood pCO2 (Temp correct) 22.7 L Arterial Blood pO2 (Temp corrected) 211.8 H Arterial Blood HCO3 14.7 L Arterial Blood Base Excess -8.5 L Arterial Blood Oxygen Saturation 98.9 H Burak Test ACCEPTAB Arterial Blood Gas Puncture Site Right Radial Arterial Blood Carboxyhemoglobin 0.3 Arterial Blood Methemoglobin 0.3 Blood Gas A-a O2 Differential 483.7 H Oxyhemoglobin Percent 98.3 Total Hemoglobin 12.7 Blood Gas Temperature 34.9 Blood Gas Respiration Rate 26.0 Blood Gas Actual Respiration Rate 26 Blood Gas Modality VENT - AC FiO2 100.0 Blood Gas Tidal Volume 500.0 Blood Gas Low PEEP Setting 5.0 Blood Gas Notified Whom TM Blood Gas Notified Time 03/02/2017 3:08:00 PM White Blood Count 3.5 L Red Blood Count 4.02 L Hemoglobin 11.6 L Hematocrit 34.6 L Mean Corpuscular Volume 86.1 Mean Corpuscular Hemoglobin 28.9 L Mean Corpuscular Hemoglobin Concent 33.5 Red Cell Distribution Width 13.8 Platelet Count 138 L Mean Platelet Volume 10.5 H Neutrophils % Segmented Neutrophils % (Manual) 59 Band Neutrophils % (Manual) 22 H Lymphocytes % Lymphocytes % (Manual) 17 Monocytes % Monocytes % (Manual) 3 Eosinophils % Basophils % Nucleated Red Blood Cells % 0.0 Neutrophils # Neutrophils # (Manual) 2.1 Band Neutrophils # 0.7 H Absolute Lymphocytes (Manual) 0.5 L Lymphocytes # Monocytes # Absolute Monocytes (Manual) 0.1 L Eosinophils # Basophils # Nucleated Red Blood Cells # Platelet Estimate NORMAL Prothrombin Time 16.1 H Prothrombin Time Ratio 1.3 INR International Normalized Ratio 1.28 Activated Partial Thromboplast Time 35.2 H Fibrinogen 252.0 # Sodium Level 150 H Potassium Level 3.1 L Chloride Level 123 H Carbon Dioxide Level 17 L Anion Gap 13 Blood Urea Nitrogen 24 H Creatinine 1.51 H Glucose Level 128 Lactic Acid Level 3.0 *H Calcium Level 8.5 Phosphorus Level 1.2 L Magnesium Level 1.9 Troponin I 0.229 *H Amylase Level 37 Lipase 45 Test 03/02/17 17:05 03/02/17 19:38 03/02/17 21:07 03/02/17 21:08 Bedside Glucose 124 134 Blood Gas Specimen Source Blood arterial Arterial Blood Date Drawn 03/02/2017 9:10:30 PM Arterial Blood pH (Temp corrected) 7.417 Arterial Blood pCO2 (Temp correct) 21.7 L Arterial Blood pO2 (Temp corrected) 74.2 L Arterial Blood HCO3 13.9 L Arterial Blood Base Excess -9.2 L Arterial Blood Oxygen Saturation 95.8 Burak Test ACCEPTAB Arterial Blood Gas Puncture Site Right Radial Arterial Blood Carboxyhemoglobin 0.3 Arterial Blood Methemoglobin 0.3 Blood Gas A-a O2 Differential 260.1 H Oxyhemoglobin Percent 95.2 Total Hemoglobin 12.2 Blood Gas Temperature 35.2 Blood Gas Respiration Rate 23.0 Blood Gas Actual Respiration Rate 26 Blood Gas Modality VENT - AC FiO2 50.0 Blood Gas Tidal Volume 500.0 Blood Gas Low PEEP Setting 5.0 Blood Gas Critical Value Read Back Jes DORANTES R.N Blood Gas Notified Whom MM Blood Gas Notified Time 03/02/2017 9:15:41 PM Lactic Acid Level 3.7 *H Test 03/02/17 21:34 03/02/17 23:15 03/02/17 23:42 03/02/17 23:58 Bedside Glucose 146 155 139 White Blood Count 6.5 # Red Blood Count 3.96 L Hemoglobin 11.3 L Hematocrit 33.9 L Mean Corpuscular Volume 85.6 Mean Corpuscular Hemoglobin 28.5 L Mean Corpuscular Hemoglobin Concent 33.3 Red Cell Distribution Width 14.1 Platelet Count 135 L Mean Platelet Volume 10.1 Neutrophils % Segmented Neutrophils % (Manual) 36 L Band Neutrophils % (Manual) 44 H Lymphocytes % Lymphocytes % (Manual) 12 L Reactive Lymphocytes % (Manual) 1 H Monocytes % Monocytes % (Manual) 4 Eosinophils % Basophils % Metamyelocytes % (manual) 3 H Nucleated Red Blood Cells % 0.0 Neutrophils # Neutrophils # (Manual) 2.5 Band Neutrophils # 2.8 H Absolute Lymphocytes (Manual) 0.7 L Lymphocytes # Reactive Lymphocytes # 0.0 Monocytes # Absolute Monocytes (Manual) 0.2 L Eosinophils # Basophils # Metamyelocytes # 0.1 H Nucleated Red Blood Cells # Platelet Estimate DECREASED Polychromasia 3+ Poikilocytosis 2+ Anisocytosis 2+ Microcytosis 2+ Prothrombin Time 16.3 H Prothrombin Time Ratio 1.3 INR International Normalized Ratio 1.30 Activated Partial Thromboplast Time 35.7 H Fibrinogen 253.0 Sodium Level 150 H Potassium Level 4.7 Chloride Level 122 H Carbon Dioxide Level 18 L Anion Gap 15 Blood Urea Nitrogen 29 H Creatinine 1.79 H Glucose Level 150 Calcium Level 8.8 Phosphorus Level 4.8 # Magnesium Level 1.8 Troponin I 0.197 *H Amylase Level 34 Lipase 30 Test 03/03/17 00:58 03/03/17 02:10 03/03/17 03:07 03/03/17 04:57 Bedside Glucose 132 139 126 Blood Gas Specimen Source Blood arterial Arterial Blood Date Drawn 03/03/2017 3:15:00 AM Arterial Blood pH (Temp corrected) 7.431 Arterial Blood pCO2 (Temp correct) 23.3 L Arterial Blood pO2 (Temp corrected) 73.8 L Arterial Blood HCO3 15.5 L Arterial Blood Base Excess -7.8 L Arterial Blood Oxygen Saturation 95.8 Burak Test ACCEPTAB Arterial Blood Gas Puncture Site Right Radial Arterial Blood Carboxyhemoglobin 0.3 Arterial Blood Methemoglobin 0.2 Blood Gas A-a O2 Differential 259.0 H Oxyhemoglobin Percent 95.3 Total Hemoglobin 11.8 L Blood Gas Temperature 35.0 Blood Gas Respiration Rate 26.0 Blood Gas Actual Respiration Rate 26 Blood Gas Modality VENT - AC FiO2 50.0 Blood Gas Tidal Volume 500.0 Blood Gas Low PEEP Setting 5.0 Blood Gas Inspiratory Pressure 37.0 Blood Gas Critical Value Read Back Jes DORANTES R.N Blood Gas Notified Whom MM Blood Gas Notified Time 03/03/2017 3:21:00 AM Test 03/03/17 05:39 03/03/17 06:56 03/03/17 08:07 03/03/17 09:24 White Blood Count 7.1 Red Blood Count 3.74 L Hemoglobin 10.6 L Hematocrit 31.8 L Mean Corpuscular Volume 85.0 Mean Corpuscular Hemoglobin 28.3 L Mean Corpuscular Hemoglobin Concent 33.3 Red Cell Distribution Width 14.5 Platelet Count 122 L Mean Platelet Volume 10.6 H Neutrophils % Segmented Neutrophils % (Manual) 25 L Band Neutrophils % (Manual) 43 H Lymphocytes % Lymphocytes % (Manual) 30 Monocytes % Eosinophils % Eosinophils % (Manual) 1 Basophils % Basophils % (Manual) 1 Nucleated Red Blood Cells % 0.0 Neutrophils # Neutrophils # (Manual) 2.0 Band Neutrophils # 3.0 H Absolute Lymphocytes (Manual) 2.1 Lymphocytes # Monocytes # Eosinophils # Basophils # Basophils # (Manual) 0.0 Nucleated Red Blood Cells # Platelet Estimate DECREASED Poikilocytosis 1+ Anisocytosis 1+ Microcytosis 1+ Prothrombin Time 17.6 H Prothrombin Time Ratio 1.4 INR International Normalized Ratio 1.44 Activated Partial Thromboplast Time 38.3 H Fibrinogen 257.0 Sodium Level 153 H Potassium Level 4.7 Chloride Level 127 H Carbon Dioxide Level 17 L Anion Gap 14 Blood Urea Nitrogen 31 H Creatinine 1.86 H Glucose Level 107 # Lactic Acid Level 2.0 Calcium Level 7.8 L Total Bilirubin 1.0 Direct Bilirubin 0.00 Indirect Bilirubin 1.0 Aspartate Amino Transf (AST/SGOT) 112 H Alanine Aminotransferase (ALT/SGPT) 122 H Alkaline Phosphatase 55 Total Protein 5.4 L Albumin 2.8 L Globulin 2.60 Albumin/Globulin Ratio 1.07 Amylase Level < 30 Lipase 30 Bedside Glucose 100 105 103 Test 03/03/17 12:14 White Blood Count Pending Red Blood Count Pending Hemoglobin Pending Hematocrit Pending Mean Corpuscular Volume Pending Mean Corpuscular Hemoglobin Pending Mean Corpuscular Hemoglobin Concent Pending Red Cell Distribution Width Pending Platelet Count Pending Mean Platelet Volume Pending Bedside Glucose 96 Medications Current Medications Acetaminophen 650 mg 650 mg Q4H PRN [place] PAIN LEVEL 1-3 OR FEVER; Start at 03:00 Vecuronium [place]/Dextrose (Norcuron/D5W) 100 ml @ 5.4 mls/hr [id number] IV Last administered on 03/02/17 17:45; Admin Dose 2.7 MLS/HR; Start 03/02/17 at 11:30 Acetaminophen (Tylenol Supp) 650 mg Q4H PRN [place] TEMP > 37C; Start 03/02/17 at 09:30 Acetaminophen (Tylenol Liquid) 650 mg Q4H PRN PO TEMP > 37C; Start 03/02/17 at 09:30 Acetaminophen (Tylenol Supp) 500 mg Q6H [place] ; Start 03/03/17 at 09:30 Acetaminophen (Tylenol Liquid) 500 mg Q6H PO Last administered on 03/03/17 08 :47; Admin Dose 500 MG; Start 03/03/17 at 09:30 Meperidine HCl (Demerol) 12.5 mg Q4H PRN IV POST OPERATIVE SHIVERING; Start at 09:30 Meperidine HCl (Demerol) 25 mg Q4H PRN IV POST OPERATIVE SHIVERING; Start at 09:30 Eye Lubricant (Akwa Oint) 1 applic Q6 BOTH EYES Last administered on 05:52; Admin Dose 1 APPLIC; Start 03/02/17 at 12:00 Eye Lubricant 2 drop 2 drop Q6 BOTH EYES Last administered on 03/03/17 05:52 ; Admin Dose 2 DROP; Start 03/02/17 at 12:00 Piperacillin Sod/ Tazobactam Sod 100 ml @ 200 mls/hr Q6 IVPB Last administered on 03/03/17 01:03; Admin Dose 200 MLS/HR; Start 03/02/17 at 12: 30 Norepinephrine/ Dextrose (Levophed/D5W) 500 ml @ 0 mls/hr TITRATE IV Last administered on 03/03/17 05:19; Admin Dose 2.5 MLS/HR; Start 03/02/17 at 19: 00 Famotidine 20 mg 20 mg DAILY IV Last administered on 03/03/17 08:48; Admin Dose 20 MG; Start 03/03/17 at 09:00 Sodium Chloride (NS) 1,000 ml @ 60 mls/hr [id number] IV Last administered on 22:41; Admin Dose 60 MLS/HR; Start 03/02/17 at 22:00 Assessment/Plan Chief Complaint/Hosp Course NEUROLOGIC: She is unresponsive. Eyes closed. No response to voice, pain or commands. No response to visual threat. Pupils about 5 mm, fixed. No extraocular movements, even on iced caloric testing. Corneal reflexes and gag were absent. No response to pain. Flaccid extremities. No reflexes. IMPRESSION: Anoxic encephalopathy. Exam is consistent with brain . Per nurse, Fentanyl, propofol, vecuronium recently stopped. Consider apnea testing and brain perfusion, will do eeg as well. Problems: MARLO TA MD Mar 03, 2017 12:47
[2017-03-03 12:50] LABS: ANION GAP 15 (8-16); BLOOD UREA NITROGEN 35 mg/dl (7-20); CALCIUM 8.1 mg/dl (8.4-10.2); CARBON DIOXIDE 17 mmol/L (21-31); CHLORIDE 128 mmol/L (97-110); CREATININE 2.05 mg/dl (0.44-1.00); GLUCOSE 94 mg/dl (70-220); MAGNESIUM 1.8 mg/dl (1.7-2.5); PHOSPHORUS 5.7 mg/dl (2.5-4.9); POTASSIUM 4.4 mmol/L (3.5-5.1); SODIUM 156 mmol/L (135-144)
[2017-03-03 12:51] LABS: AMYLASE < 30 U/L (11-123)
[2017-03-03 13:12] LABS: INR 1.52; PROTIME 18.4 Sec (12.2-14.2); PT RATIO 1.4
[2017-03-03 13:13] LABS: PARTIAL THROMBOPLASTIN TIME 40.2 Sec (25.0-35.0)
[2017-03-03 13:16] LABS: ANISOCYTOSIS 1+ (0-0); BASOPHILS % (M) 2 % (0-2); EOSINOPHILS % (M) 2 % (0-7); METAMYELOCYTES %M 1 % (0-0); MICROCYTOSIS 1+ (0-0); PLATELET ESTIMATE DECREASED; POIKILOCYTOSIS 1+ (0-0); REACTIVE LYMPHOCYTES% (M) 1 % (0-0)
--- NOTE | 2017-03-03 14:32 | PN ---
Date/Time of Note Date/Time of Note DATE: 03/03/17 TIME: 14:28 Assessment/Plan VTE Prophylaxis VTE Prophylaxis Intervention: LMWH Lines/Catheters IV Catheter Type (from Nrs): Peripheral IV Urinary Cath still in place: Yes Reason Cath still needed: urinary retention Assessment/Plan Chief Complaint/Hosp Course 61 yo female with suffered cardiac arrest then ROSC, now on hypothermia protocol , asha brain pending confirmation - Complete hypothermia protocol for VT arrests - Amiodarone for VT - Continue MV for acute hypoxic respiratory failure - Tube feeds iniated - On exam, no evidence of coritcla function. EEG to confirm - GOC with family discussed, appreciate assistance from palliative care Problems: Subjective 24 Hr Interval Summary Free Text/Dictation Completing hypothermia protocol Pupils fixed and dilated, no evidence of brainstem reflexes now I discussed this with her family at bedside. Sister has said the patient told her she would never want to live on a machine if unable to care for herself, but no known advanced directives Exam/Review of Systems Vital Signs Vitals Vital Signs Date Time Temp Pulse Resp B/P Pulse Ox O2 Delivery O2 Flow Rate FiO2 03/03/17 14:00 98.5 03/03/17 13:45 68 20 90/56 97 03/03/17 13:00 Mechanical Ventilator 03/03/17 12:00 50 Intake and Output 03/02/17 03/02/17 03/03/17 15:00 23:00 07:00 Intake Total 4306 ml 442.98 ml 1686.36 ml Output Total 667 ml 351 ml 228 ml Balance 3639 ml 91.98 ml 1458.36 ml Exam Pupils fixed/dilated No corneal or gag reflexes No response to noxiuos stimiuli Intubated on MV Results Result Diagram: 03/03/17 1214 03/03/17 1214 Results 24 hrs Laboratory Tests Test 03/02/17 15:01 03/02/17 15:07 03/02/17 17:03 03/02/17 17:05 Bedside Glucose 115 124 Blood Gas Specimen Source Blood arterial Arterial Blood Date Drawn 03/02/2017 3:00:15 PM Arterial Blood pH (Temp corrected) 7.420 Arterial Blood pCO2 (Temp correct) 22.7 L Arterial Blood pO2 (Temp corrected) 211.8 H Arterial Blood HCO3 14.7 L Arterial Blood Base Excess -8.5 L Arterial Blood Oxygen Saturation 98.9 H Burak Test ACCEPTAB Arterial Blood Gas Puncture Site Right Radial Arterial Blood Carboxyhemoglobin 0.3 Arterial Blood Methemoglobin 0.3 Blood Gas A-a O2 Differential 483.7 H Oxyhemoglobin Percent 98.3 Total Hemoglobin 12.7 Blood Gas Temperature 34.9 Blood Gas Respiration Rate 26.0 Blood Gas Actual Respiration Rate 26 Blood Gas Modality VENT - AC FiO2 100.0 Blood Gas Tidal Volume 500.0 Blood Gas Low PEEP Setting 5.0 Blood Gas Notified Whom TM Blood Gas Notified Time 03/02/2017 3:08:00 PM White Blood Count 3.5 L Red Blood Count 4.02 L Hemoglobin 11.6 L Hematocrit 34.6 L Mean Corpuscular Volume 86.1 Mean Corpuscular Hemoglobin 28.9 L Mean Corpuscular Hemoglobin Concent 33.5 Red Cell Distribution Width 13.8 Platelet Count 138 L Mean Platelet Volume 10.5 H Neutrophils % Segmented Neutrophils % (Manual) 59 Band Neutrophils % (Manual) 22 H Lymphocytes % Lymphocytes % (Manual) 17 Monocytes % Monocytes % (Manual) 3 Eosinophils % Basophils % Nucleated Red Blood Cells % 0.0 Neutrophils # Neutrophils # (Manual) 2.1 Band Neutrophils # 0.7 H Absolute Lymphocytes (Manual) 0.5 L Lymphocytes # Monocytes # Absolute Monocytes (Manual) 0.1 L Eosinophils # Basophils # Nucleated Red Blood Cells # Platelet Estimate NORMAL Prothrombin Time 16.1 H Prothrombin Time Ratio 1.3 INR International Normalized Ratio 1.28 Activated Partial Thromboplast Time 35.2 H Fibrinogen 252.0 # Sodium Level 150 H Potassium Level 3.1 L Chloride Level 123 H Carbon Dioxide Level 17 L Anion Gap 13 Blood Urea Nitrogen 24 H Creatinine 1.51 H Glucose Level 128 Lactic Acid Level 3.0 *H Calcium Level 8.5 Phosphorus Level 1.2 L Magnesium Level 1.9 Troponin I 0.229 *H Amylase Level 37 Lipase 45 Test 03/02/17 19:38 03/02/17 21:07 03/02/17 21:08 03/02/17 21:34 Bedside Glucose 134 146 Blood Gas Specimen Source Blood arterial Arterial Blood Date Drawn 03/02/2017 9:10:30 PM Arterial Blood pH (Temp corrected) 7.417 Arterial Blood pCO2 (Temp correct) 21.7 L Arterial Blood pO2 (Temp corrected) 74.2 L Arterial Blood HCO3 13.9 L Arterial Blood Base Excess -9.2 L Arterial Blood Oxygen Saturation 95.8 Burak Test ACCEPTAB Arterial Blood Gas Puncture Site Right Radial Arterial Blood Carboxyhemoglobin 0.3 Arterial Blood Methemoglobin 0.3 Blood Gas A-a O2 Differential 260.1 H Oxyhemoglobin Percent 95.2 Total Hemoglobin 12.2 Blood Gas Temperature 35.2 Blood Gas Respiration Rate 23.0 Blood Gas Actual Respiration Rate 26 Blood Gas Modality VENT - AC FiO2 50.0 Blood Gas Tidal Volume 500.0 Blood Gas Low PEEP Setting 5.0 Blood Gas Critical Value Read Back Jes DORANTES R.N Blood Gas Notified Whom MM Blood Gas Notified Time 03/02/2017 9:15:41 PM Lactic Acid Level 3.7 *H Test 03/02/17 23:15 03/02/17 23:42 03/02/17 23:58 03/03/17 00:58 Bedside Glucose 155 139 132 White Blood Count 6.5 # Red Blood Count 3.96 L Hemoglobin 11.3 L Hematocrit 33.9 L Mean Corpuscular Volume 85.6 Mean Corpuscular Hemoglobin 28.5 L Mean Corpuscular Hemoglobin Concent 33.3 Red Cell Distribution Width 14.1 Platelet Count 135 L Mean Platelet Volume 10.1 Neutrophils % Segmented Neutrophils % (Manual) 36 L Band Neutrophils % (Manual) 44 H Lymphocytes % Lymphocytes % (Manual) 12 L Reactive Lymphocytes % (Manual) 1 H Monocytes % Monocytes % (Manual) 4 Eosinophils % Basophils % Metamyelocytes % (manual) 3 H Nucleated Red Blood Cells % 0.0 Neutrophils # Neutrophils # (Manual) 2.5 Band Neutrophils # 2.8 H Absolute Lymphocytes (Manual) 0.7 L Lymphocytes # Reactive Lymphocytes # 0.0 Monocytes # Absolute Monocytes (Manual) 0.2 L Eosinophils # Basophils # Metamyelocytes # 0.1 H Nucleated Red Blood Cells # Platelet Estimate DECREASED Polychromasia 3+ Poikilocytosis 2+ Anisocytosis 2+ Microcytosis 2+ Prothrombin Time 16.3 H Prothrombin Time Ratio 1.3 INR International Normalized Ratio 1.30 Activated Partial Thromboplast Time 35.7 H Fibrinogen 253.0 Sodium Level 150 H Potassium Level 4.7 Chloride Level 122 H Carbon Dioxide Level 18 L Anion Gap 15 Blood Urea Nitrogen 29 H Creatinine 1.79 H Glucose Level 150 Calcium Level 8.8 Phosphorus Level 4.8 # Magnesium Level 1.8 Troponin I 0.197 *H Amylase Level 34 Lipase 30 Test 03/03/17 02:10 03/03/17 03:07 03/03/17 04:57 03/03/17 05:39 Bedside Glucose 139 126 Blood Gas Specimen Source Blood arterial Arterial Blood Date Drawn 03/03/2017 3:15:00 AM Arterial Blood pH (Temp corrected) 7.431 Arterial Blood pCO2 (Temp correct) 23.3 L Arterial Blood pO2 (Temp corrected) 73.8 L Arterial Blood HCO3 15.5 L Arterial Blood Base Excess -7.8 L Arterial Blood Oxygen Saturation 95.8 Burak Test ACCEPTAB Arterial Blood Gas Puncture Site Right Radial Arterial Blood Carboxyhemoglobin 0.3 Arterial Blood Methemoglobin 0.2 Blood Gas A-a O2 Differential 259.0 H Oxyhemoglobin Percent 95.3 Total Hemoglobin 11.8 L Blood Gas Temperature 35.0 Blood Gas Respiration Rate 26.0 Blood Gas Actual Respiration Rate 26 Blood Gas Modality VENT - AC FiO2 50.0 Blood Gas Tidal Volume 500.0 Blood Gas Low PEEP Setting 5.0 Blood Gas Inspiratory Pressure 37.0 Blood Gas Critical Value Read Back Jes DORANTES R.N Blood Gas Notified Whom MM Blood Gas Notified Time 03/03/2017 3:21:00 AM White Blood Count 7.1 Red Blood Count 3.74 L Hemoglobin 10.6 L Hematocrit 31.8 L Mean Corpuscular Volume 85.0 Mean Corpuscular Hemoglobin 28.3 L Mean Corpuscular Hemoglobin Concent 33.3 Red Cell Distribution Width 14.5 Platelet Count 122 L Mean Platelet Volume 10.6 H Neutrophils % Segmented Neutrophils % (Manual) 25 L Band Neutrophils % (Manual) 43 H Lymphocytes % Lymphocytes % (Manual) 30 Monocytes % Eosinophils % Eosinophils % (Manual) 1 Basophils % Basophils % (Manual) 1 Nucleated Red Blood Cells % 0.0 Neutrophils # Neutrophils # (Manual) 2.0 Band Neutrophils # 3.0 H Absolute Lymphocytes (Manual) 2.1 Lymphocytes # Monocytes # Eosinophils # Basophils # Basophils # (Manual) 0.0 Nucleated Red Blood Cells # Platelet Estimate DECREASED Poikilocytosis 1+ Anisocytosis 1+ Microcytosis 1+ Prothrombin Time 17.6 H Prothrombin Time Ratio 1.4 INR International Normalized Ratio 1.44 Activated Partial Thromboplast Time 38.3 H Fibrinogen 257.0 Sodium Level 153 H Potassium Level 4.7 Chloride Level 127 H Carbon Dioxide Level 17 L Anion Gap 14 Blood Urea Nitrogen 31 H Creatinine 1.86 H Glucose Level 107 # Lactic Acid Level 2.0 Calcium Level 7.8 L Total Bilirubin 1.0 Direct Bilirubin 0.00 Indirect Bilirubin 1.0 Aspartate Amino Transf (AST/SGOT) 112 H Alanine Aminotransferase (ALT/SGPT) 122 H Alkaline Phosphatase 55 Total Protein 5.4 L Albumin 2.8 L Globulin 2.60 Albumin/Globulin Ratio 1.07 Amylase Level < 30 Lipase 30 Test 03/03/17 06:56 03/03/17 08:07 03/03/17 09:24 03/03/17 12:14 Bedside Glucose 100 105 103 96 White Blood Count 6.7 Red Blood Count 3.61 L Hemoglobin 10.4 L Hematocrit 31.4 L Mean Corpuscular Volume 87.0 Mean Corpuscular Hemoglobin 28.8 L Mean Corpuscular Hemoglobin Concent 33.1 Red Cell Distribution Width 14.7 H Platelet Count 126 L Mean Platelet Volume 11.2 H Neutrophils % Segmented Neutrophils % (Manual) 24 L Band Neutrophils % (Manual) 35 H Lymphocytes % Lymphocytes % (Manual) 35 Reactive Lymphocytes % (Manual) 1 H Monocytes % Eosinophils % Eosinophils % (Manual) 2 Basophils % Basophils % (Manual) 2 Metamyelocytes % (manual) 1 H Nucleated Red Blood Cells % 0.0 Neutrophils # Neutrophils # (Manual) 1.8 Band Neutrophils # 2.3 H Absolute Lymphocytes (Manual) 2.3 Lymphocytes # Reactive Lymphocytes # 0.0 Monocytes # Eosinophils # Basophils # Basophils # (Manual) 0.1 H Metamyelocytes # 0.0 Nucleated Red Blood Cells # Platelet Estimate DECREASED Poikilocytosis 1+ Anisocytosis 1+ Microcytosis 1+ Prothrombin Time 18.4 H Prothrombin Time Ratio 1.4 INR International Normalized Ratio 1.52 Activated Partial Thromboplast Time 40.2 H Fibrinogen 320.0 # Sodium Level 156 H Potassium Level 4.4 Chloride Level 128 H Carbon Dioxide Level 17 L Anion Gap 15 Blood Urea Nitrogen 35 H Creatinine 2.05 H Glucose Level 94 Calcium Level 8.1 L Phosphorus Level 5.7 H Magnesium Level 1.8 Amylase Level < 30 Lipase 29 Medications Medications Current Medications Acetaminophen 650 mg 650 mg Q4H PRN [place] PAIN LEVEL 1-3 OR FEVER; Start at 03:00 Vecuronium [place]/Dextrose (Norcuron/D5W) 100 ml @ 5.4 mls/hr [id number] IV Last administered on 03/02/17 17:45; Admin Dose 2.7 MLS/HR; Start 03/02/17 at 11:30 Acetaminophen (Tylenol Supp) 650 mg Q4H PRN [place] TEMP > 37C; Start 03/02/17 at 09:30 Acetaminophen (Tylenol Liquid) 650 mg Q4H PRN PO TEMP > 37C; Start 03/02/17 at 09:30 Acetaminophen (Tylenol Supp) 500 mg Q6H [place] ; Start 03/03/17 at 09:30 Acetaminophen (Tylenol Liquid) 500 mg Q6H PO Last administered on 03/03/17 08 :47; Admin Dose 500 MG; Start 03/03/17 at 09:30 Meperidine HCl (Demerol) 12.5 mg Q4H PRN IV POST OPERATIVE SHIVERING; Start at 09:30 Meperidine HCl (Demerol) 25 mg Q4H PRN IV POST OPERATIVE SHIVERING; Start at 09:30 Eye Lubricant (Akwa Oint) 1 applic Q6 BOTH EYES Last administered on 12:49; Admin Dose 1 APPLIC; Start 03/02/17 at 12:00 Eye Lubricant 2 drop 2 drop Q6 BOTH EYES Last administered on 03/03/17 12:49 ; Admin Dose 2 DROP; Start 03/02/17 at 12:00 Piperacillin Sod/ Tazobactam Sod 100 ml @ 200 mls/hr Q6 IVPB Last administered on 03/03/17 12:49; Admin Dose 200 MLS/HR; Start 03/02/17 at 12: 30 Norepinephrine/ Dextrose (Levophed/D5W) 500 ml @ 0 mls/hr TITRATE IV Last administered on 03/03/17 05:19; Admin Dose 2.5 MLS/HR; Start 03/02/17 at 19: 00 Famotidine 20 mg 20 mg DAILY IV Last administered on 03/03/17 08:48; Admin Dose 20 MG; Start 03/03/17 at 09:00 Sodium Chloride (NS) 1,000 ml @ 60 mls/hr [id number] IV Last administered on 22:41; Admin Dose 60 MLS/HR; Start 03/02/17 at 22:00 KARINE SERRA MD Mar 03, 2017 14:32
[2017-03-03] MEDS ORDERED: DEXTROSE 5% 1,000 ML IV ONE (15:00)
--- NOTE | 2017-03-03 16:39 | RADRPT ---
Vent Rate: 43 bpm RR Interval: 0 msec AR Interval: 184 msec QRS Duration: 104 msec QT Interval: 694 msec QTC Interval: 586 msec P-R-T [place]: 47 - 23 - 146 degrees Marked sinus bradycardia Left ventricular hypertrophy with repolarization abnormality Prolonged QT Abnormal ECG Electronically Signed By: Deniz Crenshaw [id number]
--- NOTE | 2017-03-03 16:40 | RADRPT ---
Vent Rate: 62 bpm RR Interval: 0 msec OR Interval: 182 msec QRS Duration: 86 msec QT Interval: 586 msec QTC Interval: 594 msec P-R-T [place]: 70 - 12 - 124 degrees Normal sinus rhythm T wave abnormality, consider anterolateral ischemia Prolonged QT Abnormal ECG Electronically Signed By: Deniz Crenshaw [id number]
--- NOTE | 2017-03-03 16:40 | RADRPT ---
Vent Rate: 63 bpm RR Interval: 0 msec MI Interval: 180 msec QRS Duration: 88 msec QT Interval: 556 msec QTC Interval: 568 msec P-R-T [place]: 65 - 8 - 115 degrees Normal sinus rhythm Minimal voltage criteria for LVH, may be normal variant ST amp; T wave abnormality, consider anterolateral ischemia Prolonged QT Abnormal ECG Electronically Signed By: Deniz Crenshaw [id number]
[2017-03-04] VITALS (85 sets, daily range): BP systolic 81–135; BP diastolic 30–73; PULSE 49–72; RESP 19–25
[2017-03-04] MEDS: ACETAMINOPHEN 650 MG SUPP PR SCH ×4 (03:30→21:30)
[2017-03-04 05:00] LABS: ABNORMAL IP MESSAGE 1; BASOPHIL # 0.1 10^3/ul (0.0-0.1); EOSINOPHILS # 0.5 10^3/ul (0.0-0.5); EOSINOPHILS % 7.9 % (0.0-7.0); HEMATOCRIT 33.1 % (37.0-47.0); HEMOGLOBIN 10.5 g/dl (12.0-16.0); LYMPHOCYTES # 1.2 10^3/ul (0.8-2.9); MEAN CORPUSCULAR HEMOGLOBIN 28.7 pg (29.0-33.0); MEAN CORPUSCULAR HGB CONC 31.7 g/dl (32.0-37.0); MEAN CORPUSCULAR VOLUME 90.4 fl (82.0-101.0); MEAN PLATELET VOLUME 11.7 fl (7.4-10.4); MONOCYTE # 0.3 10^3/ul (0.3-0.9); NEUTROPHIL # 4.7 10^3/ul (1.6-7.5); NEUTROPHILS % 68.2 % (39.0-77.0); PLATELET COUNT 115 10^3/UL (140-415); RED BLOOD COUNT 3.66 10^6/ul (4.20-5.40); RED CELL DISTRIBUTION WIDTH 15.6 % (11.5-14.5); WHITE BLOOD COUNT 6.8 10^3/ul (4.8-10.8)
[2017-03-04] MEDS: ARTIFICIAL TEARS 15 ML OPH BOTH EYES SCH ×4 (05:05→18:37)
[2017-03-04] MEDS: ACETAMINOPHEN 650MG/20.3ML CUP PO SCH ×4 (05:05→21:30)
[2017-03-04 05:06] LABS: POSITIVE DIFF @See below
[2017-03-04] MEDS: OCULAR LUBRICANT 3.5 GM OPH OINT BOTH EYES SCH ×4 (05:06→18:38)
[2017-03-04 05:25] LABS: CALCIUM 8.6 mg/dl (8.4-10.2); CREATININE 2.53 mg/dl (0.44-1.00); POTASSIUM 3.9 mmol/L (3.5-5.1)
[2017-03-04 06:20] LABS: AADO2 Arterial 238.9 mmHg (7.0-24.0); Allen Test ACCEPTAB; Arterial Base Excess -10.4 mmol/L (-3.0-3); Arterial COHb 0.3 % (0.0-3.0); Arterial Fraction of Oxyhgb 93.2 % (93.0-99.0); Arterial HCO3 15.3 mmol/L (22.0-26.0); Arterial MetHb 0.5 % (0.0-1.5); Arterial Total Hemglobin 11.7 g/dl (12.0-18.0); MODE VENT - AC
[2017-03-04] MEDS: PIPER-TAZO 3.375 GM IV (PMX) 100 ML IVPB SCH ×2 (07:09)
[2017-03-04 08:48] LABS: CALCIUM 8.8 mg/dl (8.4-10.2); CREATININE 2.59 mg/dl (0.44-1.00); POTASSIUM 3.9 mmol/L (3.5-5.1)
--- NOTE | 2017-03-04 10:11 | CONS ---
Date/Time of Note Date/Time of Note DATE: 03/04/17 TIME: 10:08 Assessment/Plan Assessment/Plan Additional Assessment/Plan Clinical diagnosis of brain has been met Reviewing neurologist note cold calorics negative Today patient will have apnea test and cerebral flow study After this will reschedule family conference Consultation Date/Type/Reason Admit Date/Time Mar 02, 2017 at 02:41 Initial Consult Date Type of Consultation: neuro Exam/Review of Systems Vital Signs Vitals Vital Signs Date Time Temp Pulse Resp B/P Pulse Ox O2 Delivery O2 Flow Rate FiO2 03/04/17 09:01 59 20 99 50 03/04/17 07:15 101/52 03/04/17 07:00 Mechanical Ventilator 03/04/17 04:00 98.2 Intake and Output 03/03/17 03/03/17 03/04/17 15:00 23:00 07:00 Intake Total 954 ml 345 ml 450 ml Output Total 439 ml 655 ml 968 ml Balance 515 ml -310 ml -518 ml Exam Neurological: other (No oculocephalics, without corneals pupillary light reflex or doll's eyes, she is not overbreathing the ventilator, no spontaneous movements, no reflexes) Results Result Diagram: 03/04/17 0350 03/04/17 0803 Results 24 hrs Laboratory Tests Test 03/03/17 12:14 03/03/17 14:21 03/03/17 17:41 03/03/17 19:06 White Blood Count 6.7 Red Blood Count 3.61 L Hemoglobin 10.4 L Hematocrit 31.4 L Mean Corpuscular Volume 87.0 Mean Corpuscular Hemoglobin 28.8 L Mean Corpuscular Hemoglobin Concent 33.1 Red Cell Distribution Width 14.7 H Platelet Count 126 L Mean Platelet Volume 11.2 H Neutrophils % Segmented Neutrophils % (Manual) 24 L Band Neutrophils % (Manual) 35 H Lymphocytes % Lymphocytes % (Manual) 35 Reactive Lymphocytes % (Manual) 1 H Monocytes % Eosinophils % Eosinophils % (Manual) 2 Basophils % Basophils % (Manual) 2 Metamyelocytes % (manual) 1 H Nucleated Red Blood Cells % 0.0 Neutrophils # Neutrophils # (Manual) 1.8 Band Neutrophils # 2.3 H Absolute Lymphocytes (Manual) 2.3 Lymphocytes # Reactive Lymphocytes # 0.0 Monocytes # Eosinophils # Basophils # Basophils # (Manual) 0.1 H Metamyelocytes # 0.0 Nucleated Red Blood Cells # Platelet Estimate DECREASED Poikilocytosis 1+ Anisocytosis 1+ Microcytosis 1+ Prothrombin Time 18.4 H Prothrombin Time Ratio 1.4 INR International Normalized Ratio 1.52 Activated Partial Thromboplast Time 40.2 H Fibrinogen 320.0 # Sodium Level 156 H Potassium Level 4.4 Chloride Level 128 H Carbon Dioxide Level 17 L Anion Gap 15 Blood Urea Nitrogen 35 H Creatinine 2.05 H Glucose Level 94 Bedside Glucose 96 93 83 102 Calcium Level 8.1 L Phosphorus Level 5.7 H Magnesium Level 1.8 Amylase Level < 30 Lipase 29 Test 03/04/17 03:50 03/04/17 05:00 03/04/17 06:06 03/04/17 08:03 White Blood Count 6.8 Red Blood Count 3.66 L Hemoglobin 10.5 L Hematocrit 33.1 L Mean Corpuscular Volume 90.4 Mean Corpuscular Hemoglobin 28.7 L Mean Corpuscular Hemoglobin Concent 31.7 L Red Cell Distribution Width 15.6 H Platelet Count 115 L Mean Platelet Volume 11.7 H Neutrophils % 68.2 Lymphocytes % 18.0 Monocytes % 4.0 Eosinophils % 7.9 H Basophils % 1.0 Nucleated Red Blood Cells % 0.0 Neutrophils # 4.7 Lymphocytes # 1.2 Monocytes # 0.3 Eosinophils # 0.5 Basophils # 0.1 Nucleated Red Blood Cells # 0.0 Sodium Level 162 *H 164 *H Potassium Level 3.9 3.9 Chloride Level 133 H 136 H Carbon Dioxide Level 17 L 18 L Anion Gap 16 14 Blood Urea Nitrogen 40 H 39 H Creatinine 2.53 H 2.59 H Glucose Level 95 112 Calcium Level 8.6 8.8 Blood Gas Specimen Source Blood arterial Arterial Blood Date Drawn 03/04/2017 6:10:03 AM Arterial Blood pH (Temp corrected) 7.282 *L Arterial Blood pCO2 (Temp correct) 33.1 L Arterial Blood pO2 (Temp corrected) 80.4 Arterial Blood HCO3 15.3 L Arterial Blood Base Excess -10.4 L Arterial Blood Oxygen Saturation 94.0 L Burak Test ACCEPTAB Arterial Blood Gas Puncture Site Right Brachial Arterial Blood Carboxyhemoglobin 0.3 Arterial Blood Methemoglobin 0.5 Blood Gas A-a O2 Differential 238.9 H Oxyhemoglobin Percent 93.2 Total Hemoglobin 11.7 L Blood Gas Temperature 37.0 Blood Gas Respiration Rate 20.0 Blood Gas Modality VENT - AC FiO2 50.0 Blood Gas Tidal Volume 500.0 Blood Gas Low PEEP Setting 5.0 Blood Gas Critical Value Read Back Dayami DORANTES RN Blood Gas Notified Whom [place] Blood Gas Notified Time 03/04/2017 6:20:33 AM Lactic Acid Level 2.1 H Medications Medications Current Medications Acetaminophen (Tylenol Supp) 650 mg Q4H PRN [place] PAIN LEVEL 1-3 OR FEVER; Start 03/02/17 at 03:00 Acetaminophen (Tylenol Supp) 650 mg Q4H PRN [place] TEMP > 37C; Start 03/02/17 at 09:30 Acetaminophen (Tylenol Liquid) 650 mg Q4H PRN PO TEMP > 37C; Start 03/02/17 at 09:30 Acetaminophen (Tylenol Supp) 500 mg Q6H [place] ; Start 03/03/17 at 09:30 Acetaminophen (Tylenol Liquid) 500 mg Q6H PO Last administered on 03/04/17 05 :05; Admin Dose 500 MG; Start 03/03/17 at 09:30 Meperidine HCl (Demerol) 12.5 mg Q4H PRN IV POST OPERATIVE SHIVERING; Start at 09:30 Meperidine HCl (Demerol) 25 mg Q4H PRN IV POST OPERATIVE SHIVERING; Start at 09:30 Eye Lubricant (Akwa Oint) 1 applic Q6 BOTH EYES Last administered on 07:08; Admin Dose 1 APPLIC; Start 03/02/17 at 12:00 Eye Lubricant 2 drop 2 drop Q6 BOTH EYES Last administered on 03/04/17 07:09 ; Admin Dose 2 DROP; Start 03/02/17 at 12:00 Norepinephrine/ Dextrose (Levophed/D5W) 500 ml @ 0 mls/hr TITRATE IV Last administered on 03/03/17 05:19; Admin Dose 2.5 MLS/HR; Start 03/02/17 at 19: 00 Famotidine 20 mg 20 mg DAILY IV Last administered on 03/03/17 08:48; Admin Dose 20 MG; Start 03/03/17 at 09:00 Piperacillin Sod/ Tazobactam Sod (Zosyn 2.25gm/ 50ml (Pmx)) 50 ml @ 200 mls/hr Q6 IVPB ; Start 03/04/17 at 12:00 TRISH TIM Mar 04, 2017 10:11 administered on 03/03/17 05:19; Admin Dose 2.5 MLS/HR; Start 03/02/17 at 19: 00 Famotidine 20 mg 20 mg DAILY IV Last administered on 03/03/17 08:48; Admin Dose 20 MG; Start 03/03/17 at 09:00 Piperacillin Sod/ Tazobactam Sod (Zosyn 2.25gm/ 50ml (Pmx)) 50 ml @ 200 mls/hr Q6 IVPB ; Start 03/04/17 at 12:00 TRISH TIM Mar 04, 2017 10:11
[2017-03-04] MEDS: FAMOTIDINE 20 MG INJ IV SCH (10:19)
[2017-03-04] MEDS ORDERED: DEXTROSE 5% 1,000 ML IV SCH (10:30)
--- NOTE | 2017-03-04 10:54 | CONS ---
Date/Time of Note Date/Time of Note DATE: 03/04/17 TIME: 10:50 Consult Date/Type/Reason Admit Date/Time Mar 02, 2017 at 02:41 Objective Vital Signs Date Time Temp Pulse Resp B/P Pulse Ox O2 Delivery O2 Flow Rate FiO2 03/04/17 09:01 59 20 99 50 03/04/17 07:15 101/52 03/04/17 07:00 Mechanical Ventilator 03/04/17 04:00 98.2 Intake and Output 03/03/17 03/03/17 03/04/17 15:00 23:00 07:00 Intake Total 954 ml 345 ml 450 ml Output Total 439 ml 655 ml 968 ml Balance 515 ml -310 ml -518 ml Results/Medications Result Diagram: 03/04/17 0350 03/04/17 0803 Results 24 hrs Laboratory Tests Test 03/03/17 12:14 03/03/17 14:21 03/03/17 17:41 03/03/17 19:06 White Blood Count 6.7 Red Blood Count 3.61 L Hemoglobin 10.4 L Hematocrit 31.4 L Mean Corpuscular Volume 87.0 Mean Corpuscular Hemoglobin 28.8 L Mean Corpuscular Hemoglobin Concent 33.1 Red Cell Distribution Width 14.7 H Platelet Count 126 L Mean Platelet Volume 11.2 H Neutrophils % Segmented Neutrophils % (Manual) 24 L Band Neutrophils % (Manual) 35 H Lymphocytes % Lymphocytes % (Manual) 35 Reactive Lymphocytes % (Manual) 1 H Monocytes % Eosinophils % Eosinophils % (Manual) 2 Basophils % Basophils % (Manual) 2 Metamyelocytes % (manual) 1 H Nucleated Red Blood Cells % 0.0 Neutrophils # Neutrophils # (Manual) 1.8 Band Neutrophils # 2.3 H Absolute Lymphocytes (Manual) 2.3 Lymphocytes # Reactive Lymphocytes # 0.0 Monocytes # Eosinophils # Basophils # Basophils # (Manual) 0.1 H Metamyelocytes # 0.0 Nucleated Red Blood Cells # Platelet Estimate DECREASED Poikilocytosis 1+ Anisocytosis 1+ Microcytosis 1+ Prothrombin Time 18.4 H Prothrombin Time Ratio 1.4 INR International Normalized Ratio 1.52 Activated Partial Thromboplast Time 40.2 H Fibrinogen 320.0 # Sodium Level 156 H Potassium Level 4.4 Chloride Level 128 H Carbon Dioxide Level 17 L Anion Gap 15 Blood Urea Nitrogen 35 H Creatinine 2.05 H Glucose Level 94 Bedside Glucose 96 93 83 102 Calcium Level 8.1 L Phosphorus Level 5.7 H Magnesium Level 1.8 Amylase Level < 30 Lipase 29 Test 03/04/17 03:50 03/04/17 05:00 03/04/17 06:06 03/04/17 08:03 White Blood Count 6.8 Red Blood Count 3.66 L Hemoglobin 10.5 L Hematocrit 33.1 L Mean Corpuscular Volume 90.4 Mean Corpuscular Hemoglobin 28.7 L Mean Corpuscular Hemoglobin Concent 31.7 L Red Cell Distribution Width 15.6 H Platelet Count 115 L Mean Platelet Volume 11.7 H Neutrophils % 68.2 Lymphocytes % 18.0 Monocytes % 4.0 Eosinophils % 7.9 H Basophils % 1.0 Nucleated Red Blood Cells % 0.0 Neutrophils # 4.7 Lymphocytes # 1.2 Monocytes # 0.3 Eosinophils # 0.5 Basophils # 0.1 Nucleated Red Blood Cells # 0.0 Sodium Level 162 *H 164 *H Potassium Level 3.9 3.9 Chloride Level 133 H 136 H Carbon Dioxide Level 17 L 18 L Anion Gap 16 14 Blood Urea Nitrogen 40 H 39 H Creatinine 2.53 H 2.59 H Glucose Level 95 112 Calcium Level 8.6 8.8 Blood Gas Specimen Source Blood arterial Arterial Blood Date Drawn 03/04/2017 6:10:03 AM Arterial Blood pH (Temp corrected) 7.282 *L Arterial Blood pCO2 (Temp correct) 33.1 L Arterial Blood pO2 (Temp corrected) 80.4 Arterial Blood HCO3 15.3 L Arterial Blood Base Excess -10.4 L Arterial Blood Oxygen Saturation 94.0 L Burak Test ACCEPTAB Arterial Blood Gas Puncture Site Right Brachial Arterial Blood Carboxyhemoglobin 0.3 Arterial Blood Methemoglobin 0.5 Blood Gas A-a O2 Differential 238.9 H Oxyhemoglobin Percent 93.2 Total Hemoglobin 11.7 L Blood Gas Temperature 37.0 Blood Gas Respiration Rate 20.0 Blood Gas Modality VENT - AC FiO2 50.0 Blood Gas Tidal Volume 500.0 Blood Gas Low PEEP Setting 5.0 Blood Gas Critical Value Read Back Dayami DORANTES RN Blood Gas Notified Whom [place] Blood Gas Notified Time 03/04/2017 6:20:33 AM Lactic Acid Level 2.1 H Medications Current Medications Acetaminophen (Tylenol Supp) 650 mg Q4H PRN [place] PAIN LEVEL 1-3 OR FEVER; Start 03/02/17 at 03:00 Acetaminophen (Tylenol Supp) 650 mg Q4H PRN [place] TEMP > 37C; Start 03/02/17 at 09:30 Acetaminophen (Tylenol Liquid) 650 mg Q4H PRN PO TEMP > 37C; Start 03/02/17 at 09:30 Acetaminophen (Tylenol Supp) 500 mg Q6H [place] ; Start 03/03/17 at 09:30 Acetaminophen (Tylenol Liquid) 500 mg Q6H PO Last administered on 03/04/17 05 :05; Admin Dose 500 MG; Start 03/03/17 at 09:30 Meperidine HCl (Demerol) 12.5 mg Q4H PRN IV POST OPERATIVE SHIVERING; Start at 09:30 Meperidine HCl (Demerol) 25 mg Q4H PRN IV POST OPERATIVE SHIVERING; Start at 09:30 Eye Lubricant (Akwa Oint) 1 applic Q6 BOTH EYES Last administered on 07:08; Admin Dose 1 APPLIC; Start 03/02/17 at 12:00 Eye Lubricant 2 drop 2 drop Q6 BOTH EYES Last administered on 03/04/17 07:09 ; Admin Dose 2 DROP; Start 03/02/17 at 12:00 Norepinephrine/ Dextrose (Levophed/D5W) 500 ml @ 0 mls/hr TITRATE IV Last administered on 03/03/17 05:19; Admin Dose 2.5 MLS/HR; Start 03/02/17 at 19: 00 Famotidine 20 mg 20 mg DAILY IV Last administered on 03/04/17 10:19; Admin Dose 20 MG; Start 03/03/17 at 09:00 Piperacillin Sod/ Tazobactam Sod (Zosyn 2.25gm/ 50ml (Pmx)) 50 ml @ 200 mls/hr Q6 IVPB ; Start 03/04/17 at 12:00 Assessment/Plan Additional Assessment/Plan Spoke with patient's son and daughter there is one other family member who is not available.. They seem to have a clear understanding of the critical nature of her underlying current condition. We did not discuss fears concerns at this time. They are comfortable with the communication preferences 101 with caregivers and they do not have any current caregiver concerns. Physical exam per my prior note goals of care to support family members at this time there are no pain or symptom management issues psychological spiritual or cultural issues at this time will wait for the results of the 2 studies pending TRISH TIM Mar 04, 2017 10:54
--- NOTE | 2017-03-04 12:19 | RADRPT ---
PROCEDURE: Renal US. CLINICAL INDICATION: Renal dysfunction. TECHNIQUE: Multiple sonographic images of the kidneys and urinary bladder were obtained. The imag es were reviewed on a PACS workstation. COMPARISON: No prior studies are available for comparison. FINDINGS: The right kidney measures 9.4 cm. The left kidney measures 8.8 cm. There is no renal mass. There is no hydronephrosis. There is no renal calculus. Renal parenchymal thickness is normal bilaterally. Echogenicity is normal bilaterally. The perirenal regions are normal with no fluid collection or mass. The urinary bladder is empty. IMPRESSION: 1. Empty urinary bladder. 2. Otherwise normal renal ultrasound. RPTAT: QQ .Familia Mendez MD, MD Date Time Electronically viewed and signed by .Familia Mendez MD, on 03/04/2017 12:19 .R/
--- NOTE | 2017-03-04 12:27 | CONS ---
Date/Time of Note Date/Time of Note DATE: 03/04/17 TIME: 12:25 Consult Date/Type/Reason Admit Date/Time Mar 02, 2017 at 02:41 Initial Consult Date Type of Consultation: Pulmonary Subjective Patient remains unresponsive on mechanical ventilation. Pupils are fixed and dilated no gag reflex. Objective Vital Signs Date Time Temp Pulse Resp B/P Pulse Ox O2 Delivery O2 Flow Rate FiO2 03/04/17 11:45 57 22 101/55 97 Mechanical Ventilator 03/04/17 11:08 50 03/04/17 08:00 97.8 Intake and Output 03/03/17 03/03/17 03/04/17 15:00 23:00 07:00 Intake Total 954 ml 345 ml 450 ml Output Total 439 ml 655 ml 968 ml Balance 515 ml -310 ml -518 ml Exam PHYSICAL EXAMINATION GENERAL: Elderly lady orally intubated on mechanical ventilation. VITAL SIGNS: see below. HEENT: Pupils fixed and dilated. CARDIAC: S1, S2, 1/6 systolic ejection murmur CHEST: Diminished air entry bilaterally. ABDOMEN: Mildly distended. Bowel sounds present no guarding or rebound EXTREMITIES: No cyanosis, clubbing edema +1 NEUROLOGIC: Unresponsive. Results/Medications Result Diagram: 03/04/17 0350 03/04/17 0803 Results 24 hrs Laboratory Tests Test 03/03/17 14:21 03/03/17 17:41 03/03/17 19:06 03/04/17 03:50 Bedside Glucose 93 83 102 White Blood Count 6.8 Red Blood Count 3.66 L Hemoglobin 10.5 L Hematocrit 33.1 L Mean Corpuscular Volume 90.4 Mean Corpuscular Hemoglobin 28.7 L Mean Corpuscular Hemoglobin Concent 31.7 L Red Cell Distribution Width 15.6 H Platelet Count 115 L Mean Platelet Volume 11.7 H Neutrophils % 68.2 Lymphocytes % 18.0 Monocytes % 4.0 Eosinophils % 7.9 H Basophils % 1.0 Nucleated Red Blood Cells % 0.0 Neutrophils # 4.7 Lymphocytes # 1.2 Monocytes # 0.3 Eosinophils # 0.5 Basophils # 0.1 Nucleated Red Blood Cells # 0.0 Sodium Level 162 *H Potassium Level 3.9 Chloride Level 133 H Carbon Dioxide Level 17 L Anion Gap 16 Blood Urea Nitrogen 40 H Creatinine 2.53 H Glucose Level 95 Calcium Level 8.6 Test 03/04/17 05:00 03/04/17 06:06 03/04/17 08:03 Blood Gas Specimen Source Blood arterial Arterial Blood Date Drawn 03/04/2017 6:10:03 AM Arterial Blood pH (Temp corrected) 7.282 *L Arterial Blood pCO2 (Temp correct) 33.1 L Arterial Blood pO2 (Temp corrected) 80.4 Arterial Blood HCO3 15.3 L Arterial Blood Base Excess -10.4 L Arterial Blood Oxygen Saturation 94.0 L Burak Test ACCEPTAB Arterial Blood Gas Puncture Site Right Brachial Arterial Blood Carboxyhemoglobin 0.3 Arterial Blood Methemoglobin 0.5 Blood Gas A-a O2 Differential 238.9 H Oxyhemoglobin Percent 93.2 Total Hemoglobin 11.7 L Blood Gas Temperature 37.0 Blood Gas Respiration Rate 20.0 Blood Gas Modality VENT - AC FiO2 50.0 Blood Gas Tidal Volume 500.0 Blood Gas Low PEEP Setting 5.0 Blood Gas Critical Value Read Back Dayami DORANTES RN Blood Gas Notified Whom [place] Blood Gas Notified Time 03/04/2017 6:20:33 AM Lactic Acid Level 2.1 H Sodium Level 164 *H Potassium Level 3.9 Chloride Level 136 H Carbon Dioxide Level 18 L Anion Gap 14 Blood Urea Nitrogen 39 H Creatinine 2.59 H Glucose Level 112 Calcium Level 8.8 Medications Current Medications Acetaminophen (Tylenol Supp) 650 mg Q4H PRN [place] PAIN LEVEL 1-3 OR FEVER; Start 03/02/17 at 03:00 Acetaminophen (Tylenol Supp) 650 mg Q4H PRN [place] TEMP > 37C; Start 03/02/17 at 09:30 Acetaminophen (Tylenol Liquid) 650 mg Q4H PRN PO TEMP > 37C; Start 03/02/17 at 09:30 Acetaminophen (Tylenol Supp) 500 mg Q6H [place] ; Start 03/03/17 at 09:30 Acetaminophen (Tylenol Liquid) 500 mg Q6H PO Last administered on 03/04/17t 05 :05; Admin Dose 500 MG; Start 03/03/17 at 09:30 Meperidine HCl (Demerol) 12.5 mg Q4H PRN IV POST OPERATIVE SHIVERING; Start at 09:30 Meperidine HCl (Demerol) 25 mg Q4H PRN IV POST OPERATIVE SHIVERING; Start at 09:30 Eye Lubricant (Akwa Oint) 1 applic Q6 BOTH EYES Last administered on 07:08; Admin Dose 1 APPLIC; Start 03/02/17 at 12:00 Eye Lubricant 2 drop 2 drop Q6 BOTH EYES Last administered on 03/04/17 07:09 ; Admin Dose 2 DROP; Start 03/02/17 at 12:00 Norepinephrine/ Dextrose (Levophed/D5W) 500 ml @ 0 mls/hr TITRATE IV Last administered on 03/03/17 05:19; Admin Dose 2.5 MLS/HR; Start 03/02/17 at 19: 00 Famotidine 20 mg 20 mg DAILY IV Last administered on 03/04/17 10:19; Admin Dose 20 MG; Start 03/03/17 at 09:00 Piperacillin Sod/ Tazobactam Sod 50 ml @ 200 mls/hr Q6 IVPB ; Start 03/04/17 at 12:00 Sodium Bicarbonate/ Dextrose (Na Bicarb/D5W) 1,000 ml @ 100 mls/hr Q10H IV ; Start 03/04/17 at 12:30 Assessment/Plan Chief Complaint/Hosp Course MP: 1. s/p cardiopulmonary arrest: etiology not entirely clear as to whether this was a primary respiratory or cardiac arrest. Cardiac silhouette enlarged and concerning for pericardial effusion. 2. Clinical exam today consistent with brain . 3. Shock 4. Ischemic Hepatopathy 5. Aspiration: likely 2/2 #1 6. ARF--likely due to pre-renal vs. ATN 7. Sinus luz--query 2/2 B-patricia OD vs. central due to cerebral edema RECS: 1. Vent support; maintain PaCO2 28-30 2. Abx 3. EEG cerebral perfusion study 4. Family conference regarding goals of care 5. Neuro eval and recommendations 6. Correct hypernatremia Problems: TRISTA MEIER MD, [facility] Mar 04, 2017 12:27
--- NOTE | 2017-03-04 13:07 | CONS ---
Date/Time of Note Date/Time of Note DATE: 03/04/17 TIME: 13:06 Consult Date/Type/Reason Admit Date/Time Mar 02, 2017 at 02:41 Initial Consult Date Type of Consultation: Neurology Reason for Consultation hypoxic brain injury Objective Vital Signs Date Time Temp Pulse Resp B/P Pulse Ox O2 Delivery O2 Flow Rate FiO2 03/04/17 12:00 50 03/04/17 12:00 56 03/04/17 11:45 22 101/55 97 Mechanical Ventilator 03/04/17 08:00 97.8 Intake and Output 03/03/17 03/03/17 03/04/17 15:00 23:00 07:00 Intake Total 954 ml 345 ml 450 ml Output Total 439 ml 655 ml 968 ml Balance 515 ml -310 ml -518 ml Exam NEUROLOGIC: She is unresponsive. Eyes closed. No response to voice, pain or commands. No response to visual threat. Pupils about 5 mm, fixed. No extraocular movements, even on iced caloric testing. Corneal reflexes and gag were absent. No response to pain. Flaccid extremities. No reflexes. Results/Medications Result Diagram: 03/04/17 0350 03/04/17 0803 Results 24 hrs Laboratory Tests Test 03/03/17 14:21 03/03/17 17:41 03/03/17 19:06 03/04/17 03:50 Bedside Glucose 93 83 102 White Blood Count 6.8 Red Blood Count 3.66 L Hemoglobin 10.5 L Hematocrit 33.1 L Mean Corpuscular Volume 90.4 Mean Corpuscular Hemoglobin 28.7 L Mean Corpuscular Hemoglobin Concent 31.7 L Red Cell Distribution Width 15.6 H Platelet Count 115 L Mean Platelet Volume 11.7 H Neutrophils % 68.2 Lymphocytes % 18.0 Monocytes % 4.0 Eosinophils % 7.9 H Basophils % 1.0 Nucleated Red Blood Cells % 0.0 Neutrophils # 4.7 Lymphocytes # 1.2 Monocytes # 0.3 Eosinophils # 0.5 Basophils # 0.1 Nucleated Red Blood Cells # 0.0 Sodium Level 162 *H Potassium Level 3.9 Chloride Level 133 H Carbon Dioxide Level 17 L Anion Gap 16 Blood Urea Nitrogen 40 H Creatinine 2.53 H Glucose Level 95 Calcium Level 8.6 Test 03/04/17 05:00 03/04/17 06:06 03/04/17 08:03 03/04/17 11:42 Blood Gas Specimen Source Blood arterial Arterial Blood Date Drawn 03/04/2017 6:10:03 AM Arterial Blood pH (Temp corrected) 7.282 *L Arterial Blood pCO2 (Temp correct) 33.1 L Arterial Blood pO2 (Temp corrected) 80.4 Arterial Blood HCO3 15.3 L Arterial Blood Base Excess -10.4 L Arterial Blood Oxygen Saturation 94.0 L Burak Test ACCEPTAB Arterial Blood Gas Puncture Site Right Brachial Arterial Blood Carboxyhemoglobin 0.3 Arterial Blood Methemoglobin 0.5 Blood Gas A-a O2 Differential 238.9 H Oxyhemoglobin Percent 93.2 Total Hemoglobin 11.7 L Blood Gas Temperature 37.0 Blood Gas Respiration Rate 20.0 Blood Gas Modality VENT - AC FiO2 50.0 Blood Gas Tidal Volume 500.0 Blood Gas Low PEEP Setting 5.0 Blood Gas Critical Value Read Back Dayami DORANTSE RN Blood Gas Notified Whom [place] Blood Gas Notified Time 03/04/2017 6:20:33 AM Lactic Acid Level 2.1 H Sodium Level 164 *H Potassium Level 3.9 Chloride Level 136 H Carbon Dioxide Level 18 L Anion Gap 14 Blood Urea Nitrogen 39 H Creatinine 2.59 H Glucose Level 112 Calcium Level 8.8 Osmolality 341 H Medications Current Medications Acetaminophen (Tylenol Supp) 650 mg Q4H PRN [place] PAIN LEVEL 1-3 OR FEVER; Start 03/02/17 at 03:00 Acetaminophen (Tylenol Supp) 650 mg Q4H PRN [place] TEMP > 37C; Start 03/02/17 at 09:30 Acetaminophen (Tylenol Liquid) 650 mg Q4H PRN PO TEMP > 37C; Start 03/02/17 at 09:30 Acetaminophen (Tylenol Supp) 500 mg Q6H [place] ; Start 03/03/17 at 09:30 Acetaminophen (Tylenol Liquid) 500 mg Q6H PO Last administered on 03/04/17t 05 :05; Admin Dose 500 MG; Start 03/03/17 at 09:30 Meperidine HCl (Demerol) 12.5 mg Q4H PRN IV POST OPERATIVE SHIVERING; Start at 09:30 Meperidine HCl (Demerol) 25 mg Q4H PRN IV POST OPERATIVE SHIVERING; Start at 09:30 Eye Lubricant (Akwa Oint) 1 applic Q6 BOTH EYES Last administered on 07:08; Admin Dose 1 APPLIC; Start 03/02/17 at 12:00 Eye Lubricant 2 drop 2 drop Q6 BOTH EYES Last administered on 03/04/17 07:09 ; Admin Dose 2 DROP; Start 03/02/17 at 12:00 Norepinephrine/ Dextrose (Levophed/D5W) 500 ml @ 0 mls/hr TITRATE IV Last administered on 03/03/17 05:19; Admin Dose 2.5 MLS/HR; Start 03/02/17 at 19: 00 Famotidine 20 mg 20 mg DAILY IV Last administered on 03/04/17 10:19; Admin Dose 20 MG; Start 03/03/17 at 09:00 Piperacillin Sod/ Tazobactam Sod 50 ml @ 200 mls/hr Q6 IVPB ; Start 03/04/17 at 12:00 Sodium Bicarbonate/ Dextrose (Na Bicarb/D5W) 1,000 ml @ 100 mls/hr Q10H IV ; Start 03/04/17 at 12:30 Assessment/Plan Chief Complaint/Hosp Course Brain evaluation EEG pending recommend apnea test Problems: ANDRES RINALDI MD Mar 04, 2017 13:07
[2017-03-04] MEDS: SODIUM BICARBONATE (IV ADD) 50 MEQ in DEXTROSE 5% 950 ML IV SCH (13:22)
[2017-03-04] MEDS: PIPER-TAZO 2.25 GM (PMX) 50 ML IVPB SCH ×2 (13:24→17:58)
--- NOTE | 2017-03-04 14:47 | PN ---
Date/Time of Note Date/Time of Note DATE: 03/04/17 TIME: 14:37 Assessment/Plan VTE Prophylaxis VTE Prophylaxis Intervention: SCD's Lines/Catheters [facility]from [facility] Saline Lock Assessment/Plan Chief Complaint/Hosp Course 1. Cardiac arrest with ROSC status post hypothermia protocol with anoxic encephalopathy and likely brain pending confirmation Follow-up on EEG and apnea test Neurology following Amiodarone for VT 2. Acute respiratory failure secondary to anoxic encephalopathy Continue vent support, pulmonology following 3. Acute kidney injury likely secondary to ATN from cardiac arrest IV fluids with D5 W Nephrology consultation 4. Hypernatremia D5W was started Prophylaxis: SCDs Problems: Subjective 24 Hr Interval Summary Subjective hx not possible: pt non-verbal Exam/Review of Systems Vital Signs Vitals Vital Signs Date Time Temp Pulse Resp B/P Pulse Ox O2 Delivery O2 Flow Rate FiO2 03/04/17 13:18 58 22 99 50 03/04/17 11:45 101/55 Mechanical Ventilator 03/04/17 08:00 97.8 Intake and Output 03/03/17 03/03/17 03/04/17 15:00 23:00 07:00 Intake Total 954 ml 345 ml 450 ml Output Total 439 ml 655 ml 968 ml Balance 515 ml -310 ml -518 ml Exam Constitutional: non-verbal ENMT: intubated Respiratory: clear to auscultation Cardiovascular: regular rate and rhythm Gastrointestinal: soft, No distended Musculoskeletal: nl extremities to inspection Results Result Diagram: 03/04/17 0350 03/04/17 0803 Results 24 hrs Laboratory Tests Test 03/03/17 17:41 03/03/17 19:06 03/04/17 03:50 03/04/17 05:00 Bedside Glucose 83 102 White Blood Count 6.8 Red Blood Count 3.66 L Hemoglobin 10.5 L Hematocrit 33.1 L Mean Corpuscular Volume 90.4 Mean Corpuscular Hemoglobin 28.7 L Mean Corpuscular Hemoglobin Concent 31.7 L Red Cell Distribution Width 15.6 H Platelet Count 115 L Mean Platelet Volume 11.7 H Neutrophils % 68.2 Lymphocytes % 18.0 Monocytes % 4.0 Eosinophils % 7.9 H Basophils % 1.0 Nucleated Red Blood Cells % 0.0 Neutrophils # 4.7 Lymphocytes # 1.2 Monocytes # 0.3 Eosinophils # 0.5 Basophils # 0.1 Nucleated Red Blood Cells # 0.0 Sodium Level 162 *H Potassium Level 3.9 Chloride Level 133 H Carbon Dioxide Level 17 L Anion Gap 16 Blood Urea Nitrogen 40 H Creatinine 2.53 H Glucose Level 95 Calcium Level 8.6 Blood Gas Specimen Source Blood arterial Arterial Blood Date Drawn 03/04/2017 6:10:03 AM Arterial Blood pH (Temp corrected) 7.282 *L Arterial Blood pCO2 (Temp correct) 33.1 L Arterial Blood pO2 (Temp corrected) 80.4 Arterial Blood HCO3 15.3 L Arterial Blood Base Excess -10.4 L Arterial Blood Oxygen Saturation 94.0 L Burak Test ACCEPTAB Arterial Blood Gas Puncture Site Right Brachial Arterial Blood Carboxyhemoglobin 0.3 Arterial Blood Methemoglobin 0.5 Blood Gas A-a O2 Differential 238.9 H Oxyhemoglobin Percent 93.2 Total Hemoglobin 11.7 L Blood Gas Temperature 37.0 Blood Gas Respiration Rate 20.0 Blood Gas Modality VENT - AC FiO2 50.0 Blood Gas Tidal Volume 500.0 Blood Gas Low PEEP Setting 5.0 Blood Gas Critical Value Read Back Dayami DORANTES RN Blood Gas Notified Whom [place] Blood Gas Notified Time 03/04/2017 6:20:33 AM Test 03/04/17 06:06 03/04/17 08:03 03/04/17 11:42 Lactic Acid Level 2.1 H Sodium Level 164 *H Potassium Level 3.9 Chloride Level 136 H Carbon Dioxide Level 18 L Anion Gap 14 Blood Urea Nitrogen 39 H Creatinine 2.59 H Glucose Level 112 Calcium Level 8.8 Osmolality 341 H Medications Medications Current Medications Acetaminophen (Tylenol Supp) 650 mg Q4H PRN [place] PAIN LEVEL 1-3 OR FEVER; Start 03/02/17 at 03:00 Acetaminophen (Tylenol Supp) 650 mg Q4H PRN [place] TEMP > 37C; Start 03/02/17 at 09:30 Acetaminophen (Tylenol Liquid) 650 mg Q4H PRN PO TEMP > 37C; Start 03/02/17 at 09:30 Acetaminophen (Tylenol Supp) 500 mg Q6H [place] ; Start 03/03/17 at 09:30 Acetaminophen (Tylenol Liquid) 500 mg Q6H PO Last administered on 03/04/17t 05 :05; Admin Dose 500 MG; Start 03/03/17 at 09:30 Meperidine HCl (Demerol) 12.5 mg Q4H PRN IV POST OPERATIVE SHIVERING; Start at 09:30 Meperidine HCl (Demerol) 25 mg Q4H PRN IV POST OPERATIVE SHIVERING; Start at 09:30 Eye Lubricant (Akwa Oint) 1 applic Q6 BOTH EYES Last administered on 13:23; Admin Dose 1 APPLIC; Start 03/02/17 at 12:00 Eye Lubricant 2 drop 2 drop Q6 BOTH EYES Last administered on 03/04/17 13:23 ; Admin Dose 2 DROP; Start 03/02/17 at 12:00 Norepinephrine/ Dextrose (Levophed/D5W) 500 ml @ 0 mls/hr TITRATE IV Last administered on 03/03/17 05:19; Admin Dose 2.5 MLS/HR; Start 03/02/17 at 19: 00 Famotidine 20 mg 20 mg DAILY IV Last administered on 03/04/17 10:19; Admin Dose 20 MG; Start 03/03/17 at 09:00 Piperacillin Sod/ Tazobactam Sod 50 ml @ 200 mls/hr Q6 IVPB Last administered on 03/04/17 13:24; Admin Dose 200 MLS/HR; Start 03/04/17 at 12:00 Sodium Bicarbonate/ Dextrose (Na Bicarb/D5W) 1,000 ml @ 100 mls/hr Q10H IV Last administered on 03/04/17 13:22; Admin Dose 100 MLS/HR; Start 03/04/17 at 12:30 ROSALIA CLAY Mar 04, 2017 14:47
--- NOTE | 2017-03-04 16:40 | CONS ---
Date/Time of Note Date/Time of Note DATE: 03/04/17 TIME: 16:31 Assessment/Plan Assessment/Plan Additional Assessment/Plan 1. Acute kidney injury due to ATN From cardiac arrest 2. acute hypernatremia 3. acidosis Resp + metaboilc 3. Cardiac arrest with ROSC status post hypothermia protocol with anoxic encephalopathy and likely brain pending confirmation 5. acute resp failure secondary to anoxic encephalopathy, intubated on ventilator support Plan : Thanks for this consultaiton I will order urine stuides including Urine Sodium, Urine osmolarity, serum osmolarity and Ck total with Uric acid D/c current IVF NS, Start D5W with soduim bicarbonate to run at 100 cc/hr BP stable Neurology following and work up in progress for anoxic encephalopathy and brain will conitnue to follow up on patient total time spent in critical care: 50 minutes Consultation Date/Type/Reason Admit Date/Time Mar 02, 2017 at 02:41 Date of Consultation: Mar 04, 2017 Type of Consultation: NEPHROLOGY Reason for Consultation acute kidney injury, severe metabolic acidosis, pt is s/p cardiac arrest , Hypernatremia, Referring Provider: ROSALIA CLAY Hx of Present Illness 61-year-old female, presenting to the ER due to cardiac arrest. s/p Cardiac arrestt with ROSC, but unresponsive, pt was admitted with Cr 1.27 which gradually bumped to 2.59- On admission Na was 147 which is now 164.pt is s/p consultation by neurosurgery, neurology and Palliative care service. pt is currently intubated on full ventilator support, BP stable, Renal has been consulted for Acute kidney injury, Hypernatremia and metabolic acidosis. Subjective hx not possible: pt non-verbal Past Medical History Medical History: coronary artery disease, hypertension Past Surgical History Past Surgical Hx: no surgical history Family History Significant Family History: other (Not available ) Social History Alcohol Use: none Smoking Status: Never smoker Drug Use: none Exam/Review of Systems Vital Signs Vitals Vital Signs Date Time Temp Pulse Resp B/P Pulse Ox O2 Delivery O2 Flow Rate FiO2 03/04/17 15:09 56 22 100 50 03/04/17 11:45 101/55 Mechanical Ventilator 03/04/17 08:00 97.8 Intake and Output 03/03/17 03/03/17 03/04/17 15:00 23:00 07:00 Intake Total 954 ml 345 ml 450 ml Output Total 439 ml 655 ml 968 ml Balance 515 ml -310 ml -518 ml Exam Constitutional: non-verbal ENMT: intubated, other (ET tube in place ) Neck: non-tender, supple Respiratory: diminished breath sounds, other (coarse Rhonchi Bilaterally ) Cardiovascular: regular rate and rhythm Musculoskeletal: nl extremities to inspection Extremities: normal pulses Neurological: other ( Flaccid; no GAG; no spont respirations; pupils fixed and dilated) Lymph: nl lymph nodes Results Result Diagram: 03/04/17 0350 03/04/17 0803 Results 24 hrs Laboratory Tests Test 03/03/17 17:41 03/03/17 19:06 03/04/17 03:50 03/04/17 05:00 Bedside Glucose 83 102 White Blood Count 6.8 Red Blood Count 3.66 L Hemoglobin 10.5 L Hematocrit 33.1 L Mean Corpuscular Volume 90.4 Mean Corpuscular Hemoglobin 28.7 L Mean Corpuscular Hemoglobin Concent 31.7 L Red Cell Distribution Width 15.6 H Platelet Count 115 L Mean Platelet Volume 11.7 H Neutrophils % 68.2 Lymphocytes % 18.0 Monocytes % 4.0 Eosinophils % 7.9 H Basophils % 1.0 Nucleated Red Blood Cells % 0.0 Neutrophils # 4.7 Lymphocytes # 1.2 Monocytes # 0.3 Eosinophils # 0.5 Basophils # 0.1 Nucleated Red Blood Cells # 0.0 Sodium Level 162 *H Potassium Level 3.9 Chloride Level 133 H Carbon Dioxide Level 17 L Anion Gap 16 Blood Urea Nitrogen 40 H Creatinine 2.53 H Glucose Level 95 Calcium Level 8.6 Blood Gas Specimen Source Blood arterial Arterial Blood Date Drawn 03/04/2017 6:10:03 AM Arterial Blood pH (Temp corrected) 7.282 *L Arterial Blood pCO2 (Temp correct) 33.1 L Arterial Blood pO2 (Temp corrected) 80.4 Arterial Blood HCO3 15.3 L Arterial Blood Base Excess -10.4 L Arterial Blood Oxygen Saturation 94.0 L Burak Test ACCEPTAB Arterial Blood Gas Puncture Site Right Brachial Arterial Blood Carboxyhemoglobin 0.3 Arterial Blood Methemoglobin 0.5 Blood Gas A-a O2 Differential 238.9 H Oxyhemoglobin Percent 93.2 Total Hemoglobin 11.7 L Blood Gas Temperature 37.0 Blood Gas Respiration Rate 20.0 Blood Gas Modality VENT - AC FiO2 50.0 Blood Gas Tidal Volume 500.0 Blood Gas Low PEEP Setting 5.0 Blood Gas Critical Value Read Back Dayami DORANTES RN Blood Gas Notified Whom [place] Blood Gas Notified Time 03/04/2017 6:20:33 AM Test 03/04/17 06:06 03/04/17 08:03 03/04/17 11:42 Lactic Acid Level 2.1 H Sodium Level 164 *H Potassium Level 3.9 Chloride Level 136 H Carbon Dioxide Level 18 L Anion Gap 14 Blood Urea Nitrogen 39 H Creatinine 2.59 H Glucose Level 112 Calcium Level 8.8 Osmolality 341 H Medications Medications Current Medications Acetaminophen (Tylenol Supp) 650 mg Q4H PRN [place] PAIN LEVEL 1-3 OR FEVER; Start 03/02/17 at 03:00 Acetaminophen (Tylenol Supp) 650 mg Q4H PRN [place] TEMP > 37C; Start 03/02/17 at 09:30 Acetaminophen (Tylenol Liquid) 650 mg Q4H PRN [place] TEMP > 37C; Start 03/02/17 at 09:30 Acetaminophen (Tylenol Supp) 500 mg Q6H [place] ; Start 03/03/17 at 09:30 Acetaminophen (Tylenol Liquid) 500 mg Q6H PO Last administered on 03/04/17 05 :05; Admin Dose 500 MG; Start 03/03/17 at 09:30 Meperidine HCl (Demerol) 12.5 mg Q4H PRN IV POST OPERATIVE SHIVERING; Start at 09:30 Meperidine HCl (Demerol) 25 mg Q4H PRN IV POST OPERATIVE SHIVERING; Start at 09:30 Eye Lubricant (Akwa Oint) 1 applic Q6 BOTH EYES Last administered on 13:23; Admin Dose 1 APPLIC; Start 03/02/17 at 12:00 Eye Lubricant 2 drop 2 drop Q6 BOTH EYES Last administered on 03/04/17 13:23 ; Admin Dose 2 DROP; Start 03/02/17 at 12:00 Norepinephrine/ Dextrose (Levophed/D5W) 500 ml @ 0 mls/hr TITRATE IV Last administered on 03/03/17 05:19; Admin Dose 2.5 MLS/HR; Start 03/02/17 at 19: 00 Famotidine 20 mg 20 mg DAILY IV Last administered on 03/04/17 10:19; Admin Dose 20 MG; Start 03/03/17 at 09:00 Piperacillin Sod/ Tazobactam Sod 50 ml @ 200 mls/hr Q6 IVPB Last administered on 03/04/17 13:24; Admin Dose 200 MLS/HR; Start 03/04/17 at 12:00 Sodium Bicarbonate/ Dextrose (Na Bicarb/D5W) 1,000 ml @ 100 mls/hr Q10H IV Last administered on 03/04/17 13:22; Admin Dose 100 MLS/HR; Start 03/04/17 at 12:30 TOMER REEVES MD Mar 04, 2017 16:40
--- NOTE | 2017-03-04 17:38 | RADRPT ---
PROCEDURE: Intracerebral perfusion study CLINICAL INDICATION: 61 year old patient with altered mental status. TECHNIQUE: Following the intravenous injection of 21.6 mCi of Tc-99m pertechnetate , multiple kim katerin anterior images of the head were obtained along with multiple delayed anterior , posterior and l ateral images of the head up to 10 minutes post injection. COMPARISON: CT scan of the brain dated March 02, 2017. FINDINGS: Multiple anterior dynamic images of the head demonstrate questionable blood flow in the carotid arline walt bilaterally at 2 seconds into the study. Normally expected trident appearance of the intracerebral vessels is not seen. In addition, hot nose sign is present. Delayed anterior spot images of the head do not reveal activity in the sagittal and transverse sinus es. Physiologic uptake is seen in the salivary glands and thyroid gland. IMPRESSION: The scintigraphic pattern of the abnormalities is most compatible with brain in the appropriat e clinical setting. RPTAT: HH .Catrina Hunt MD, MD Date Time Electronically viewed and signed by .Catrina Hunt MD, on 03/04/2017 17:37 .L/
[2017-03-05] VITALS (74 sets, daily range): BP systolic 71–161; BP diastolic 37–69; PULSE 0–79; RESP 16–22
[2017-03-05] MEDS: SODIUM BICARBONATE (IV ADD) 50 MEQ in DEXTROSE 5% 950 ML IV SCH ×3 (00:22→18:35)
[2017-03-05] MEDS: ARTIFICIAL TEARS 15 ML OPH BOTH EYES SCH ×4 (00:22→17:56)
[2017-03-05] MEDS: OCULAR LUBRICANT 3.5 GM OPH OINT BOTH EYES SCH ×4 (00:22→17:57)
[2017-03-05] MEDS: PIPER-TAZO 2.25 GM (PMX) 50 ML IVPB SCH ×4 (00:26→17:56)
[2017-03-05] MEDS: ACETAMINOPHEN 650 MG SUPP PR SCH ×3 (03:30→15:30)
[2017-03-05] MEDS: ACETAMINOPHEN 650MG/20.3ML CUP PO SCH ×3 (03:30→15:41)
[2017-03-05 06:31] LABS: CALCIUM 9.2 mg/dl (8.4-10.2); CREATININE 2.89 mg/dl (0.44-1.00); MAGNESIUM 1.9 mg/dl (1.7-2.5); POTASSIUM 3.3 mmol/L (3.5-5.1)
[2017-03-05] MEDS: FAMOTIDINE 20 MG INJ IV SCH (09:48)
[2017-03-05 09:53] LABS: AADO2 Arterial 176.9 mmHg (7.0-24.0); Allen Test ACCEPTAB; Arterial Base Excess -6.5 mmol/L (-3.0-3); Arterial COHb 0.3 % (0.0-3.0); Arterial HCO3 17.4 mmol/L (22.0-26.0); Arterial MetHb 0.4 % (0.0-1.5); Arterial Total Hemglobin 11.5 g/dl (12.0-18.0); MODE VENT - AC
--- NOTE | 2017-03-05 09:57 | CONS ---
Date/Time of Note Date/Time of Note DATE: 03/05/17 TIME: 09:53 Assessment/Plan Assessment/Plan Chief Complaint/Hosp Course 61-year-old female, presenting to the ER due to cardiac arrest. s/p Cardiac arrestt with ROSC, but unresponsive, pt was admitted with Cr 1.27 which gradually bumped to 2.59- On admission Na was 147 which is now 164.pt is s/p consultation by neurosurgery, neurology and Palliative care service. pt is currently intubated on full ventilator support, BP stable, Renal has been consulted for Acute kidney injury, Hypernatremia and metabolic acidosis. Problems: Additional Assessment/Plan 1. Acute kidney injury due to ATN From cardiac arrest 2. acute hypernatremia 3. acidosis Resp + metaboilc 3. Cardiac arrest with ROSC status post hypothermia protocol with anoxic encephalopathy and likely brain pending confirmation 5. acute resp failure secondary to anoxic encephalopathy, intubated on ventilator support Plan : Cr worsened to 2.8, Na still high but hCo3 improved with bicarbonate drip, pt is on D5W with sodium bicarbonate drip- continue at current rate, ABG stat ordered KCl 20MEQ IV x 1 dose now will order free water through NG tube 200cc Q 4 hr x 2 days then stop , Neurology following and work up in progress for anoxic encephalopathy and brain - Cerebral perfusion scan done yesterday will conitnue to follow up on patient pt prognosis is poor, need goals of care discussion Consultation Date/Type/Reason Admit Date/Time Mar 02, 2017 at 02:41 Initial Consult Date 03/04/17 Type of Consultation: NEPHROLOGY Referring Provider: ROSALIA CLAY 24 HR Interval Summary Free Text/Dictation pt remains intubated on ventilator, Cerebral perfusion scan done . Na still high , K low, Cr 2.89 HCo3 21 Exam/Review of Systems Vital Signs Vitals Vital Signs Date Time Temp Pulse Resp B/P Pulse Ox O2 Delivery O2 Flow Rate FiO2 03/05/17 08:00 76 03/05/17 08:00 98.5 22 161/67 97 Mechanical Ventilator 03/05/17 05:35 50 Intake and Output 03/04/17 03/04/17 03/05/17 15:00 23:00 07:00 Intake Total 378.08 ml 1618.4 ml 1156.85 ml Output Total 499 ml 850 ml 875 ml Balance -120.92 ml 768.4 ml 281.85 ml Exam Constitutional: non-verbal ENMT: intubated, other (ET tube in place ) Neck: non-tender, supple Respiratory: diminished breath sounds, other (coarse Rhonchi Bilaterally ) Cardiovascular: regular rate and rhythm Musculoskeletal: nl extremities to inspection Extremities: normal pulses Neurological: other ( Flaccid; no GAG; no spont respirations; pupils fixed and dilated) Lymph: nl lymph nodes Results Result Diagram: 03/04/17 0350 03/05/17 0546 Results 24 hrs Laboratory Tests Test 03/04/17 11:42 03/05/17 05:46 Osmolality 341 H Sodium Level 164 *H Potassium Level 3.3 L Chloride Level 135 H Carbon Dioxide Level 21 Anion Gap 11 Blood Urea Nitrogen 40 H Creatinine 2.89 H Glucose Level 137 Calcium Level 9.2 Magnesium Level 1.9 Medications Medications Current Medications Acetaminophen (Tylenol Supp) 650 mg Q4H PRN [place] PAIN LEVEL 1-3 OR FEVER; Start 03/02/17 at 03:00 Acetaminophen (Tylenol Supp) 650 mg Q4H PRN [place] TEMP > 37C; Start 03/02/17 at 09:30 Acetaminophen (Tylenol Liquid) 650 mg Q4H PRN PO TEMP > 37C; Start 03/02/17 at 09:30 Acetaminophen (Tylenol Supp) 500 mg Q6H [place] ; Start 03/03/17 at 09:30 Acetaminophen (Tylenol Liquid) 500 mg Q6H PO Last administered on 03/05/17 09 :48; Admin Dose 500 MG; Start 03/03/17 at 09:30 Meperidine HCl (Demerol) 12.5 mg Q4H PRN IV POST OPERATIVE SHIVERING; Start at 09:30 Meperidine HCl (Demerol) 25 mg Q4H PRN IV POST OPERATIVE SHIVERING; Start at 09:30 Eye Lubricant (Akwa Oint) 1 applic Q6 BOTH EYES Last administered on 05:25; Admin Dose 1 APPLIC; Start 03/02/17 at 12:00 Eye Lubricant 2 drop 2 drop Q6 BOTH EYES Last administered on 03/05/17 05:25 ; Admin Dose 2 DROP; Start 03/02/17 at 12:00 Norepinephrine/ Dextrose (Levophed/D5W) 500 ml @ 0 mls/hr TITRATE IV Last administered on 03/05/17 05:47; Admin Dose 13.12 MLS/HR; Start 03/02/17 at 19 :00 Famotidine 20 mg 20 mg DAILY IV Last administered on 03/05/17 09:48; Admin Dose 20 MG; Start 03/03/17 at 09:00 Piperacillin Sod/ Tazobactam Sod 50 ml @ 200 mls/hr Q6 IVPB Last administered on 03/05/17 05:26; Admin Dose 200 MLS/HR; Start 03/04/17 at 12:00 Sodium Bicarbonate/ Dextrose (Na Bicarb/D5W) 1,000 ml @ 100 mls/hr Q10H IV Last administered on 03/05/17 00:22; Admin Dose 100 MLS/HR; Start 03/04/17 at 12:30 TOMER REEVES MD Mar 05, 2017 09:57
--- NOTE | 2017-03-05 10:50 | CONS ---
Date/Time of Note Date/Time of Note DATE: 03/05/17 TIME: 10:47 Consult Date/Type/Reason Admit Date/Time Mar 02, 2017 at 02:41 Type of Consultation: Pulmonary Ordering Provider: ROSALIA CLAY Subjective Patient remains unresponsive on mechanical ventilation. Pupils are fixed and dilated. Currently hemodynamically stable. Objective Vital Signs Date Time Temp Pulse Resp B/P Pulse Ox O2 Delivery O2 Flow Rate FiO2 03/05/17 08:00 76 03/05/17 08:00 98.5 22 161/67 97 Mechanical Ventilator 03/05/17 05:35 50 Intake and Output 03/04/17 03/04/17 03/05/17 15:00 23:00 07:00 Intake Total 378.08 ml 1618.4 ml 1156.85 ml Output Total 499 ml 850 ml 875 ml Balance -120.92 ml 768.4 ml 281.85 ml Exam PHYSICAL EXAMINATION GENERAL: Elderly lady orally intubated on mechanical ventilation. VITAL SIGNS: see below. HEENT: Pupils fixed and dilated. CARDIAC: S1, S2, 1/6 systolic ejection murmur CHEST: Diminished air entry bilaterally. ABDOMEN: Mildly distended. Bowel sounds present no guarding or rebound EXTREMITIES: No cyanosis, clubbing edema +1 NEUROLOGIC: Unresponsive. Results/Medications Result Diagram: 03/04/17 0350 03/05/17 0546 Results 24 hrs Laboratory Tests Test 03/04/17 11:42 03/05/17 05:46 03/05/17 09:45 Osmolality 341 H Sodium Level 164 *H Potassium Level 3.3 L Chloride Level 135 H Carbon Dioxide Level 21 Anion Gap 11 Blood Urea Nitrogen 40 H Creatinine 2.89 H Glucose Level 137 Calcium Level 9.2 Magnesium Level 1.9 Blood Gas Specimen Source Blood arterial Arterial Blood Date Drawn 03/05/2017 9:40:39 AM Arterial Blood pH (Temp corrected) 7.386 Arterial Blood pCO2 (Temp correct) 29.6 L Arterial Blood pO2 (Temp corrected) 74.3 L Arterial Blood HCO3 17.4 L Arterial Blood Base Excess -6.5 L Arterial Blood Oxygen Saturation 94.7 L Burak Test ACCEPTAB Arterial Blood Gas Puncture Site Left Radial Arterial Blood Carboxyhemoglobin 0.3 Arterial Blood Methemoglobin 0.4 Blood Gas A-a O2 Differential 176.9 H Oxyhemoglobin Percent 94.0 Total Hemoglobin 11.5 L Blood Gas Temperature 37.0 Blood Gas Respiration Rate 22.0 Blood Gas Actual Respiration Rate 22 Blood Gas Modality VENT - AC FiO2 40.0 Blood Gas Tidal Volume 500.0 Blood Gas Low PEEP Setting 5.0 Blood Gas Notified Whom JLD Blood Gas Notified Time 03/05/2017 9:53:25 AM Medications Current Medications Acetaminophen (Tylenol Supp) 650 mg Q4H PRN [place] PAIN LEVEL 1-3 OR FEVER; Start 03/02/17 at 03:00 Acetaminophen (Tylenol Supp) 650 mg Q4H PRN [place] TEMP > 37C; Start 03/02/17 at 09:30 Acetaminophen (Tylenol Liquid) 650 mg Q4H PRN PO TEMP > 37C; Start 03/02/17 at 09:30 Acetaminophen (Tylenol Supp) 500 mg Q6H [place] ; Start 03/03/17 at 09:30 Acetaminophen (Tylenol Liquid) 500 mg Q6H PO Last administered on 03/05/17 09 :48; Admin Dose 500 MG; Start 03/03/17 at 09:30 Meperidine HCl (Demerol) 12.5 mg Q4H PRN IV POST OPERATIVE SHIVERING; Start at 09:30 Meperidine HCl (Demerol) 25 mg Q4H PRN IV POST OPERATIVE SHIVERING; Start at 09:30 Eye Lubricant (Akwa Oint) 1 applic Q6 BOTH EYES Last administered on 05:25; Admin Dose 1 APPLIC; Start 03/02/17 at 12:00 Eye Lubricant 2 drop 2 drop Q6 BOTH EYES Last administered on 03/05/17 05:25 ; Admin Dose 2 DROP; Start 03/02/17 at 12:00 Norepinephrine/ Dextrose (Levophed/D5W) 500 ml @ 0 mls/hr TITRATE IV Last administered on 03/05/17 05:47; Admin Dose 13.12 MLS/HR; Start 03/02/17 at 19 :00 Famotidine 20 mg 20 mg DAILY IV Last administered on 03/05/17 09:48; Admin Dose 20 MG; Start 03/03/17 at 09:00 Piperacillin Sod/ Tazobactam Sod 50 ml @ 200 mls/hr Q6 IVPB Last administered on 03/05/17 05:26; Admin Dose 200 MLS/HR; Start 03/04/17 at 12:00 Sodium Bicarbonate 50 meq/Dextrose 1,000 ml @ 100 mls/hr Q10H IV Last administered on 03/05/17 00:22; Admin Dose 100 MLS/HR; Start 03/04/17 at 12: 30 Potassium Chloride/Sodium Chloride (KCl/NS) 110 ml @ 55 mls/hr ONCE ONCE IVPB ; Start 03/05/17 at 11:00; Stop 03/05/17 at 12:59 Assessment/Plan Chief Complaint/Hosp Course MP: 1. s/p cardiopulmonary arrest: etiology not entirely clear as to whether this was a primary respiratory or cardiac arrest. Cardiac silhouette enlarged and concerning for pericardial effusion. 2. Clinical exam today consistent with brain . 3. Shock 4. Ischemic Hepatopathy 5. Aspiration: likely 2/2 #1 6. ARF--likely due to pre-renal vs. ATN 7. Sinus luz--query 2/2 B-patricia OD vs. central due to cerebral edema RECS: 1. Vent support; maintain PaCO2 28-30 2. Abx 3. EEG result is pending. Cerebral perfusion study and clinical exam consistent with brain . 4. Family conference regarding goals of care 5. Neuro eval and recommendations 6. Correct hypernatremia increase free water. Discussed with primary team consider withdrawal of supportive care. Problems: TRISTA MEIER MD, [facility] Mar 05, 2017 10:50
[2017-03-05] MEDS ORDERED: POTASSIUM CHLORIDE 20 MEQ in SOD CHLORIDE 0.9% 100 ML IVPB ONE (11:00)
--- NOTE | 2017-03-05 11:30 | SP ---
DATE OF PROCEDURE: 03/04/2017 HISTORY: This is a 61-year-old woman who was admitted following anoxic event and is unresponsive. EEG was done using an ACS protocol. Patient's temperature was 97.5. Test integrity of the recordin g system was done. CURRENT MEDICATIONS: None. PROCEDURE: Utilizing a 16-channel EEG machine, cap scalp electrodes were applied in accordance with International 10-20 system. [id number] and [id number] montages were displayed. Electrical i mpedances were measured and reported. DESCRIPTION: During the resting state a clear posterior dominant rhythm was not seen. EKG artifact was noted which became more prominent on decreasing sensitivity. Hyperventilation was not performe d. Photic stimulation had no response and there was no response to painful stimulus and no response to eye opening. IMPRESSION: This EEG is consistent with brain . Please correlate clinically. Dictated By: CRISTINA BAPTISTE/RIYA Conf#: [id number] DID#: [id number]
--- NOTE | 2017-03-05 11:43 | CONS ---
Date/Time of Note Date/Time of Note DATE: 03/05/17 TIME: 11:42 Consult Date/Type/Reason Admit Date/Time Mar 02, 2017 at 02:41 Type of Consultation: Neurology Ordering Provider: ROSALIA CLAY Subjective EEG consistent with brain Objective Vital Signs Date Time Temp Pulse Resp B/P Pulse Ox O2 Delivery O2 Flow Rate FiO2 03/05/17 08:00 76 03/05/17 08:00 98.5 22 161/67 97 Mechanical Ventilator 03/05/17 05:35 50 Intake and Output 03/04/17 03/04/17 03/05/17 15:00 23:00 07:00 Intake Total 378.08 ml 1618.4 ml 1156.85 ml Output Total 499 ml 850 ml 875 ml Balance -120.92 ml 768.4 ml 281.85 ml Exam NEUROLOGIC: She is unresponsive. Eyes closed. No response to voice, pain or commands. No response to visual threat. Pupils about 5 mm, fixed. No extraocular movements, even on iced caloric testing. Corneal reflexes and gag were absent. No response to pain. Flaccid extremities. No reflexes. Results/Medications Result Diagram: 03/04/17 0350 03/05/17 0546 Results 24 hrs Laboratory Tests Test 03/05/17 05:46 03/05/17 09:45 Sodium Level 164 *H Potassium Level 3.3 L Chloride Level 135 H Carbon Dioxide Level 21 Anion Gap 11 Blood Urea Nitrogen 40 H Creatinine 2.89 H Glucose Level 137 Calcium Level 9.2 Magnesium Level 1.9 Blood Gas Specimen Source Blood arterial Arterial Blood Date Drawn 03/05/2017 9:40:39 AM Arterial Blood pH (Temp corrected) 7.386 Arterial Blood pCO2 (Temp correct) 29.6 L Arterial Blood pO2 (Temp corrected) 74.3 L Arterial Blood HCO3 17.4 L Arterial Blood Base Excess -6.5 L Arterial Blood Oxygen Saturation 94.7 L Burak Test ACCEPTAB Arterial Blood Gas Puncture Site Left Radial Arterial Blood Carboxyhemoglobin 0.3 Arterial Blood Methemoglobin 0.4 Blood Gas A-a O2 Differential 176.9 H Oxyhemoglobin Percent 94.0 Total Hemoglobin 11.5 L Blood Gas Temperature 37.0 Blood Gas Respiration Rate 22.0 Blood Gas Actual Respiration Rate 22 Blood Gas Modality VENT - AC FiO2 40.0 Blood Gas Tidal Volume 500.0 Blood Gas Low PEEP Setting 5.0 Blood Gas Notified Whom JLD Blood Gas Notified Time 03/05/2017 9:53:25 AM Medications Current Medications Acetaminophen (Tylenol Supp) 650 mg Q4H PRN [place] PAIN LEVEL 1-3 OR FEVER; Start 03/02/17 at 03:00 Acetaminophen (Tylenol Supp) 650 mg Q4H PRN [place] TEMP > 37C; Start 03/02/17 at 09:30 Acetaminophen (Tylenol Liquid) 650 mg Q4H PRN [place] TEMP > 37C; Start 03/02/17 at 09:30 Acetaminophen (Tylenol Supp) 500 mg Q6H [place] ; Start 03/03/17 at 09:30 Acetaminophen (Tylenol Liquid) 500 mg Q6H PO Last administered on 03/05/17 09 :48; Admin Dose 500 MG; Start 03/03/17 at 09:30 Meperidine HCl (Demerol) 12.5 mg Q4H PRN IV POST OPERATIVE SHIVERING; Start at 09:30 Meperidine HCl (Demerol) 25 mg Q4H PRN IV POST OPERATIVE SHIVERING; Start at 09:30 Eye Lubricant (Akwa Oint) 1 applic Q6 BOTH EYES Last administered on 05:25; Admin Dose 1 APPLIC; Start 03/02/17 at 12:00 Eye Lubricant 2 drop 2 drop Q6 BOTH EYES Last administered on 03/05/17 05:25 ; Admin Dose 2 DROP; Start 03/02/17 at 12:00 Norepinephrine/ Dextrose (Levophed/D5W) 500 ml @ 0 mls/hr TITRATE IV Last administered on 03/05/17 05:47; Admin Dose 13.12 MLS/HR; Start 03/02/17 at 19 :00 Famotidine 20 mg 20 mg DAILY IV Last administered on 03/05/17 09:48; Admin Dose 20 MG; Start 03/03/17 at 09:00 Piperacillin Sod/ Tazobactam Sod 50 ml @ 200 mls/hr Q6 IVPB Last administered on 03/05/17 05:26; Admin Dose 200 MLS/HR; Start 03/04/17 at 12:00 Sodium Bicarbonate 50 meq/Dextrose 1,000 ml @ 100 mls/hr Q10H IV Last administered on 03/05/17 00:22; Admin Dose 100 MLS/HR; Start 03/04/17 at 12: 30 Potassium Chloride/Sodium Chloride (KCl/NS) 110 ml @ 55 mls/hr ONCE ONCE IVPB Last administered on 03/05/17 11:25; Admin Dose 55 MLS/HR; Start 03/05/17 at 11:00; Stop 03/05/17 at 12:59 Assessment/Plan Chief Complaint/Hosp Course EEG consistent with brain - official report to follow read by Dr. Resendiz withdrawal of care planned Problems: ANDRES RINALDI MD Mar 05, 2017 11:43
--- NOTE | 2017-03-05 15:10 | PN ---
Date/Time of Note Date/Time of Note DATE: 03/05/17 TIME: 15:07 Assessment/Plan VTE Prophylaxis VTE Prophylaxis Intervention: SCD's Assessment/Plan Chief Complaint/Hosp Course 1. 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 Acute respiratory failure secondary to anoxic encephalopathy Continue vent support, pulmonology following 3. Acute kidney injury likely secondary to ATN from cardiac arrest IV fluids with D5 W Nephrology consultation 4. Hypernatremia D5W Prophylaxis: SCDs Problems: Subjective 24 Hr Interval Summary Subjective hx not possible: pt non-verbal Exam/Review of Systems Vital Signs Vitals Vital Signs Date Time Temp Pulse Resp B/P Pulse Ox O2 Delivery O2 Flow Rate FiO2 03/05/17 12:15 71 22 132/55 97 Mechanical Ventilator 03/05/17 12:00 98.9 03/05/17 05:35 50 Intake and Output 03/04/17 03/04/17 03/05/17 15:00 23:00 07:00 Intake Total 378.08 ml 1618.4 ml 1268.10 ml Output Total 499 ml 850 ml 875 ml Balance -120.92 ml 768.4 ml 393.10 ml Exam Constitutional: non-verbal Respiratory: clear to auscultation Cardiovascular: regular rate and rhythm Gastrointestinal: soft, No distended Musculoskeletal: nl extremities to inspection Results Result Diagram: 03/04/17 0350 03/05/17 0546 Results 24 hrs Laboratory Tests Test 03/05/17 05:46 03/05/17 09:45 Sodium Level 164 *H Potassium Level 3.3 L Chloride Level 135 H Carbon Dioxide Level 21 Anion Gap 11 Blood Urea Nitrogen 40 H Creatinine 2.89 H Glucose Level 137 Calcium Level 9.2 Magnesium Level 1.9 Blood Gas Specimen Source Blood arterial Arterial Blood Date Drawn 03/05/2017 9:40:39 AM Arterial Blood pH (Temp corrected) 7.386 Arterial Blood pCO2 (Temp correct) 29.6 L Arterial Blood pO2 (Temp corrected) 74.3 L Arterial Blood HCO3 17.4 L Arterial Blood Base Excess -6.5 L Arterial Blood Oxygen Saturation 94.7 L Burak Test ACCEPTAB Arterial Blood Gas Puncture Site Left Radial Arterial Blood Carboxyhemoglobin 0.3 Arterial Blood Methemoglobin 0.4 Blood Gas A-a O2 Differential 176.9 H Oxyhemoglobin Percent 94.0 Total Hemoglobin 11.5 L Blood Gas Temperature 37.0 Blood Gas Respiration Rate 22.0 Blood Gas Actual Respiration Rate 22 Blood Gas Modality VENT - AC FiO2 40.0 Blood Gas Tidal Volume 500.0 Blood Gas Low PEEP Setting 5.0 Blood Gas Notified Whom JLD Blood Gas Notified Time 03/05/2017 9:53:25 AM Medications Medications Current Medications Acetaminophen (Tylenol Supp) 650 mg Q4H PRN [place] PAIN LEVEL 1-3 OR FEVER; Start 03/02/17 at 03:00 Acetaminophen (Tylenol Supp) 650 mg Q4H PRN [place] TEMP > 37C; Start 03/02/17 at 09:30 Acetaminophen (Tylenol Liquid) 650 mg Q4H PRN PO TEMP > 37C; Start 03/02/17 at 09:30 Acetaminophen (Tylenol Supp) 500 mg Q6H [place] ; Start 03/03/17 at 09:30 Acetaminophen (Tylenol Liquid) 500 mg Q6H PO Last administered on 03/05/17 09 :48; Admin Dose 500 MG; Start 03/03/17 at 09:30 Meperidine HCl (Demerol) 12.5 mg Q4H PRN IV POST OPERATIVE SHIVERING; Start at 09:30 Meperidine HCl (Demerol) 25 mg Q4H PRN IV POST OPERATIVE SHIVERING; Start at 09:30 Eye Lubricant (Akwa Oint) 1 applic Q6 BOTH EYES Last administered on 05:25; Admin Dose 1 APPLIC; Start 03/02/17 at 12:00 Eye Lubricant 2 drop 2 drop Q6 BOTH EYES Last administered on 03/05/17 05:25 ; Admin Dose 2 DROP; Start 03/02/17 at 12:00 Norepinephrine/ Dextrose (Levophed/D5W) 500 ml @ 0 mls/hr TITRATE IV Last administered on 03/05/17 05:47; Admin Dose 13.12 MLS/HR; Start 03/02/17 at 19 :00 Famotidine 20 mg 20 mg DAILY IV Last administered on 03/05/17 09:48; Admin Dose 20 MG; Start 03/03/17 at 09:00 Piperacillin Sod/ Tazobactam Sod 50 ml @ 200 mls/hr Q6 IVPB Last administered on 03/05/17 12:45; Admin Dose 200 MLS/HR; Start 03/04/17 at 12:00 Sodium Bicarbonate/ Dextrose (Na Bicarb/D5W) 1,000 ml @ 100 mls/hr Q10H IV Last administered on 03/05/17 11:44; Admin Dose 100 MLS/HR; Start 03/04/17 at 12:30 ROSALIA CLAY Mar 05, 2017 15:10
--- NOTE | 2017-03-05 22:47 | PN ---
Date/Time of Note Date/Time of Note DATE: 03/05/17 TIME: 22:37 Assessment/Plan VTE Prophylaxis VTE Prophylaxis Intervention: other Assessment/Plan Chief Complaint/Hosp Course Note: Time Of : 2204. 03/05/17 Request to see room 101. No spontaneous breath sounds. No corneal, gag, or response to sternal rub. No Doll's eye. / asystole noted at 2204. Family at bedside. Problems: Exam/Review of Systems Vital Signs Vitals Vital Signs Date Time Temp Pulse Resp B/P Pulse Ox O2 Delivery O2 Flow Rate FiO2 03/05/17 22:05 0 03/05/17 21:13 22 97 40 03/05/17 17:15 133/61 Mechanical Ventilator 03/05/17 16:00 99.1 Intake and Output 03/04/17 03/04/17 03/05/17 15:00 23:00 07:00 Intake Total 378.08 ml 1618.4 ml 1268.10 ml Output Total 499 ml 850 ml 875 ml Balance -120.92 ml 768.4 ml 393.10 ml Results Result Diagram: 03/04/17 0350 03/05/17 0546 Results 24 hrs Laboratory Tests Test 03/05/17 05:46 03/05/17 09:45 Sodium Level 164 *H Potassium Level 3.3 L Chloride Level 135 H Carbon Dioxide Level 21 Anion Gap 11 Blood Urea Nitrogen 40 H Creatinine 2.89 H Glucose Level 137 Calcium Level 9.2 Magnesium Level 1.9 Blood Gas Specimen Source Blood arterial Arterial Blood Date Drawn 03/05/2017 9:40:39 AM Arterial Blood pH (Temp corrected) 7.386 Arterial Blood pCO2 (Temp correct) 29.6 L Arterial Blood pO2 (Temp corrected) 74.3 L Arterial Blood HCO3 17.4 L Arterial Blood Base Excess -6.5 L Arterial Blood Oxygen Saturation 94.7 L Burak Test ACCEPTAB Arterial Blood Gas Puncture Site Left Radial Arterial Blood Carboxyhemoglobin 0.3 Arterial Blood Methemoglobin 0.4 Blood Gas A-a O2 Differential 176.9 H Oxyhemoglobin Percent 94.0 Total Hemoglobin 11.5 L Blood Gas Temperature 37.0 Blood Gas Respiration Rate 22.0 Blood Gas Actual Respiration Rate 22 Blood Gas Modality VENT - AC FiO2 40.0 Blood Gas Tidal Volume 500.0 Blood Gas Low PEEP Setting 5.0 Blood Gas Notified Whom JLD Blood Gas Notified Time 03/05/2017 9:53:25 AM Medications Medications Current Medications Acetaminophen (Tylenol Supp) 650 mg Q4H PRN [place] PAIN LEVEL 1-3 OR FEVER; Start 03/02/17 at 03:00 Acetaminophen (Tylenol Supp) 650 mg Q4H PRN [place] TEMP > 37C; Start 03/02/17 at 09:30 Acetaminophen (Tylenol Liquid) 650 mg Q4H PRN PO TEMP > 37C; Start 03/02/17 at 09:30 Acetaminophen (Tylenol Supp) 500 mg Q6H [place] ; Start 03/03/17 at 09:30 Acetaminophen (Tylenol Liquid) 500 mg Q6H PO Last administered on 03/05/17 15 :41; Admin Dose 500 MG; Start 03/03/17 at 09:30 Meperidine HCl (Demerol) 12.5 mg Q4H PRN IV POST OPERATIVE SHIVERING; Start at 09:30 Meperidine HCl (Demerol) 25 mg Q4H PRN IV POST OPERATIVE SHIVERING; Start at 09:30 Eye Lubricant (Akwa Oint) 1 applic Q6 BOTH EYES Last administered on 17:57; Admin Dose 1 APPLIC; Start 03/02/17 at 12:00 Eye Lubricant 2 drop 2 drop Q6 BOTH EYES Last administered on 03/05/17 17:56 ; Admin Dose 2 DROP; Start 03/02/17 at 12:00 Norepinephrine/ Dextrose (Levophed/D5W) 500 ml @ 0 mls/hr TITRATE IV Last administered on 03/05/17 05:47; Admin Dose 13.12 MLS/HR; Start 03/02/17 at 19 :00 Famotidine 20 mg 20 mg DAILY IV Last administered on 03/05/17 09:48; Admin Dose 20 MG; Start 03/03/17 at 09:00 Piperacillin Sod/ Tazobactam Sod 50 ml @ 200 mls/hr Q6 IVPB Last administered on 03/05/17 17:56; Admin Dose 200 MLS/HR; Start 03/04/17 at 12:00 Sodium Bicarbonate/ Dextrose (Na Bicarb/D5W) 1,000 ml @ 100 mls/hr Q10H IV Last administered on 10/24/17at 18:35; Admin Dose 100 MLS/HR; Start 03/04/17 at 12:30 MATEO JIM MD Mar 05, 2017 22:47
--- NOTE | 2017-03-06 07:54 | CONS ---
Date/Time of Note Date/Time of Note DATE: 03/06/17 TIME: 07:52 Assessment/Plan Assessment/Plan Additional Assessment/Plan Discussed with Dr. Gutierrez and reviewed medical records once again. Although family members are still somewhat conflicted based upon objective and subjective criteria patient is brain . However we will continue to support family members in any way we possibly can throughout the dying process. Consultation Date/Type/Reason Admit Date/Time Mar 02, 2017 at 02:41 Past Medical History Medical History: coronary artery disease, hypertension Past Surgical History Past Surgical Hx: no surgical history Social History Alcohol Use: none Smoking Status: Never smoker Drug Use: none Exam/Review of Systems Vital Signs Vitals Vital Signs Date Time Temp Pulse Resp B/P Pulse Ox O2 Delivery O2 Flow Rate FiO2 03/05/17 22:05 0 03/05/17 21:13 22 97 40 03/05/17 17:15 133/61 Mechanical Ventilator 03/05/17 16:00 99.1 Intake and Output 03/05/17 03/05/17 03/06/17 15:00 23:00 07:00 Intake Total 758.11 ml 218.74 ml Output Total 650 ml 390 ml Balance 108.11 ml -171.26 ml Results Result Diagram: 03/04/17 0350 03/05/17 0546 Results 24 hrs Laboratory Tests Test 03/05/17 09:45 Blood Gas Specimen Source Blood arterial Arterial Blood Date Drawn 03/05/2017 9:40:39 AM Arterial Blood pH (Temp corrected) 7.386 Arterial Blood pCO2 (Temp correct) 29.6 L Arterial Blood pO2 (Temp corrected) 74.3 L Arterial Blood HCO3 17.4 L Arterial Blood Base Excess -6.5 L Arterial Blood Oxygen Saturation 94.7 L Burak Test ACCEPTAB Arterial Blood Gas Puncture Site Left Radial Arterial Blood Carboxyhemoglobin 0.3 Arterial Blood Methemoglobin 0.4 Blood Gas A-a O2 Differential 176.9 H Oxyhemoglobin Percent 94.0 Total Hemoglobin 11.5 L Blood Gas Temperature 37.0 Blood Gas Respiration Rate 22.0 Blood Gas Actual Respiration Rate 22 Blood Gas Modality VENT - AC FiO2 40.0 Blood Gas Tidal Volume 500.0 Blood Gas Low PEEP Setting 5.0 Blood Gas Notified Whom JLD Blood Gas Notified Time 03/05/2017 9:53:25 AM TRISH TIM Mar 06, 2017 07:54
--- NOTE | 2017-03-06 10:41 | DES ---
Date/Time of Note Date/Time of Note DATE: 03/06/17 TIME: 10:36 Discharge/ Summary Admission/Discharge Info Admit Date/Time Mar 02, 2017 at 02:41 Discharge Date/Time Mar 05, 2017 at 22:05 Final Diagnosis Brain secondary to cardiac arrest Respiratory arrest Preliminary Cause of Brain secondary to cardiac arrest Hospital Course Patient is a 61-year-old female that presented after cardiac arrest once in the field once in the ED. Patient did have return of circulation, CT head did show anoxic encephalopathy, physical exam on arrival patient did have evidence of brain with fixed and dilated pupils. Patient was seen by neurology, brain perfusion study and EEG did suggest brain , physical exam was consistent with brain , this was relayed to the family and it was decided the patient will be terminally extubated. Patient went into asystole 15 minutes later and was pronounced at 2205 on 03/05/17. No spontaneous breath sounds. No corneal, gag, or response to sternal rub. No Doll's eye. / asystole noted at 2205. ROSALIA CLAY Mar 06, 2017 10:41
--- NOTE | 2017-03-07 08:42 | RADRPT ---
Echocardiogram Report PRELIMINARY Patient Name: SURAJ MAHMOOD Gender: Female Date: 1955 Study Date: 02-Mar-2017 Computer Technology Instructor: TRICIA Location: ER Ref. Physician: BARBARA SOMMERS Quality: Good Procedures: Transthoracic echocardiogram with complete 2D, M-Mode, and doppler examination. Indications: Cardiac Arrest. 2D/M Mode Doppler Measurement Value Normal Ranges Measurement Value Normal Ranges AoR Diam MM 2.8 cm LISA Vmax 2.6 cm2 ACS MM 1.8 cm LISA VTI 2.6 cm2 LA/Ao MM 1.5 AV Peak Boogie 0.9 m/sec LA Dimen MM 4.3 cm AV Peak PG 3.0 mmHg LVIDd 2D 5.1 3.5 - 5.6 cm LVOT Peak Boogie 0.8 m/sec LVIDs 2D 4.8 2.1 - 4.1 cm LVOT Peak PG 2.3 mmHg LVPWd 2D 1.4 0.6 - 1.1 cm MV E Peak Boogie 0.5 m/sec IVSd 2D 1.4 0.6 - 1.1 cm MV A Peak Boogie 0.6 m/sec EDV 2D 125.0 cm3 MV E/A 0.8 ESV 2D 109.0 cm3 MV Decel Time 356 msec EF 2D 15.0 50.0 - 65.0 % MV Decel Benton 1 LVOT Diam 2.0 cm MV E/A 0.8 TAPSE 0.7 cm TR Peak Boogie 2.0 m/sec TR Peak PG 16.8 mmHg RVSP 25.0 mmHg Findings Left Ventricle: Normal left ventricular cavity size. Mild concentric left ventricular hypertrophy. Severe left ventricular systolic dysfunction. Ejection fraction is visually estimated at 15 %. Tissue Doppler/Mitral Doppler indices are consistent with impaired relaxation (Stage I diastolic dysfunction). Right Ventricle: Normal right ventricular size. Severe right ventricular systolic dysfunction. Left Atrium: There is mild enlargement of left atrium measuring 4.3 cm. Right Atrium: The right atrium is normal in size. Atrial Septum: Normal atrial septum. Mitral Valve: Mild posterior mitral leaflet calcification. Mild mitral annular calcification. Trace mitral regurgitation. Aortic Valve: Normal appearance of the aortic valve. No significant aortic stenosis. Tricuspid Valve: Normal appearance of the tricuspid valve. Estimated peak PA systolic pressure 25 mmHg. There is trace tricuspid regurgitation. Pulmonic Valve: Normal pulmonic valve appearance. There is trace pulmonic regurgitation. Pericardium: Normal pericardium with small global pericardial effusion. Posterior pleural effusion seen. Aorta: Normal aortic root. IVC: Normal size IVC and poor respiratory collapse. Conclusions 1.Normal left ventricular cavity size. Mild concentric left ventricular hypertrophy. Severe left ventricular systolic dysfunction. Ejection fraction is visually estimated at 15 %. Tissue Doppler/Mitral Doppler indices are consistent with impaired relaxation (Stage I diastolic dysfunction). 2.Normal right ventricular size. Severe right ventricular systolic dysfunction. 3.There is mild enlargement of left atrium measuring 4.3 cm. 4.The right atrium is normal in size. 5.Normal atrial septum. 6.Mild posterior mitral leaflet calcification. Mild mitral annular calcification. Trace mitral regurgitation. 7.Normal appearance of the aortic valve. No significant aortic stenosis. Electronically Signed By: Patient Name: SURAJ MAHMOOD Study Date: 02-Mar-2017 [id number]
== END 2017-03-05 22:05 | disposition expired | DRG 208 ==
LOC: E/R 23:27 → ICU 03-02 02:41 → UNDOADMIN 03-02 08:16 → ICU 03-02 08:16
PROVIDERS: ADMIT Family Medicine; ATTEND Family Medicine
PROC: 5A1945Z Respiratory Ventilation, 24-96 Consecutive Hours (ICD-10-PCS; principal; 2017-03-01)
PROC: 0BH17EZ Insertion of Endotracheal Airway into Trachea, Via Natural or Artificial Opening (ICD-10-PCS; 2017-03-01)
PROC: 5A2204Z Restoration of Cardiac Rhythm, Single (ICD-10-PCS; 2017-03-01)
PROC: 06HY33Z Insertion of Infusion Device into Lower Vein, Percutaneous Approach (ICD-10-PCS; 2017-03-01)
DX: J96.00 Acute respiratory failure, unspecified whether with hypoxia or hypercapnia (principal); G93.6 Cerebral edema; N17.0 Acute kidney failure with tubular necrosis; R57.9 Shock, unspecified; G93.1 Anoxic brain damage, not elsewhere classified; E87.2 Acidosis; E87.0 Hyperosmolality and hypernatremia; I46.9 Cardiac arrest, cause unspecified; I49.01 Ventricular fibrillation; R00.1 Bradycardia, unspecified
CPT/HCPCS: 31500; 36415; 36600; 70450; 71010; 72125; 76775; 76937; 78606; 80048; 80053; 80306; 80307; 81001; 82150; 82550; 82553; 82803; 82962; 83605; 83690; 83735; 83930; 84100; 84484; 85025; 85384; 85610; 85730; 87040; 87081; 87086; 92950; 93005; 93306; 94002; 94003; 94770; 96361; 96365; 96366; 96368; 96375; 96376; A9512; C1751; C9113; J0171; J0282; J1815; J2150; J2543; J3010; J3370; J3480; J7030; J7050; J7060; J7070; J7120